=== PATIENT | male | born 1935 | race Caucasian/White ===

== ENCOUNTER 2016-06-29 23:51 | Inpatient (IN) ==
[2016-06-30] MEDS ORDERED: FUROSEMIDE 100 MG/10 ML VIAL IV STA (00:14)
[2016-06-30] MEDS ORDERED: methylPREDNISolone SOD SUC 125 MG/2 ML VIAL IV STA (00:14)
--- NOTE | 2016-06-30 00:17 | Emergency Department Note ---
Arrival - Arrival Chief Complaint: Shortness of Breath Stated Complaint: SOB ED Nursing Triage Note: pt states he started having sob last night and got in chair then tonight it has gotten increasinly worse Mode of Arrival: Wheelchair Time Seen by Provider: 06/30/16 00:14 - History of Present Illness HPI Narrative: Patient presents complaining of shortness of breath which began yesterday. The patient first noticed wheezing which has progressively worsened. He did not call anybody until later tonight when he finally could not tolerate his dyspnea. His family member with him says he does not know if he has had fever. He recently had cataract surgery but did not have general anesthetic for the procedure. He does take fluid pills. He does not have a history of asthma. The patient has a nonproductive cough. Dr. Maico Ramires is his family doctor. Allergies/Adverse Reactions: Allergies Allergy/AdvReac Type Severity Reaction Status Date / Time No Known Allergies Allergy Verified 06/28/16 06:43 Home Medications: Home Medications Medication Instructions Recorded Confirmed Type Carvedilol [Coreg] 6.25 mg PO BID 06/27/16 06/28/16 History Cyanocobalamin (Vitamin B-12) 2,500 mcg SL DAILY 06/27/16 06/28/16 History [Vitamin B-12] Finasteride [Proscar] 5 mg PO DAILY 06/27/16 06/28/16 History Folic Acid Tab 1 mg PO DAILY 06/27/16 06/28/16 History Quinapril HCl 20 mg PO DAILY 06/27/16 06/28/16 History Tamsulosin [Flomax] 0.4 mg PO BID 06/27/16 06/28/16 History amLODIPine [Norvasc] 10 mg PO DAILY 06/27/16 06/28/16 History metFORMIN [Glucophage] 500 mg PO DAILY W/BREAKFAST 06/27/16 06/28/16 History Review of System - Review of System 12 point system: reviewed and no additional remarkable complaints except as stated Medical,Surgical,& Family Hx - Medical History Cardio: History of: Hypertension Neurology: No history of: Seizures HEENT: History of: Eye Problem (wears glasses), Dental Problems (dentures full) Endocrine: History of: Diabetes Mellitus (NIDDM) Respiratory: No history of: Pneumonia (Hx Pneum Vac), Respiratory Problems (Flu Vac Current 2015/2016 Season) Genitourinary: History of: Prostate Problems (BPH), Genitourinary Cancer ( Bladder CA 2015) Gastrointestinal: No history of: Polyps Musculoskeletal: History of: Musculoskeletal Problems (Arthritis) Other: History of: Cancer (Bladder Tumor) No history of: Anesthesia Reactions - Surgical History HEENT Surgeries: Patient denies: Eye Surgery (06/28/16 Sched for Lt Cataract) Abdominal Surgeries: Surgical HX of: Colonoscopy Patient denies: Abdominal Surgery Reproductive Surgeries: Surgical HX of;: Cystoscopy (05/2016), Genitourinary Surgery (Cryoablation Bladder Tumor) - Social History Smoking Status: Never smoker Frequency of Alcohol Use: None Type of Drug Use: None Exam Physical Examination: General: Patient is well-developed and well-nourished with only mild to moderate distress despite mid 70 O2 sat on room air. With a nonrebreather facemask on his O2 sats come up into the mid 90s. HEENT: The extraocular muscles are intact. Oropharynx is moist. There is no erythema or exudate. The tympanic membranes are shiny bilaterally. The lips are slightly cyanotic. Neck: There is no adenopathy. Full range of motion is noted without pain. The trachea is midline. No JVD is present. Lungs: There is normal excursion of the chest with the lungs demonstrating prominent wheezes bilaterally. No subcostal retractions are present. There is no point tenderness present. Heart: The heart has a regular rate and rhythm with no gallops or murmurs. Abdomen: The abdomen is nontender and nondistended with no rebound, guarding, or masses. Bowel sounds are normal. Back: The back demonstrates a normal appearance with no evidence of trauma. Genitourinary: Not examined. Extremities: The extremities demonstrate no clubbing, cyanosis, or edema. The visualized range of motion is normal. They appear atraumatic. Neuro: Cranial nerves II through XII are checked and intact. There is no focal motor or sensory deficit seen in the extremities. Skin: Skin is warm and dry with no evidence of rash. Vital Signs: Vital Signs Temperature 98.5 F 06/30/16 00:05 Pulse Rate 97 H 06/30/16 01:04 Respiratory Rate 22 06/30/16 01:04 Blood Pressure 189/101 06/30/16 00:05 O2 Sat by Pulse Oximetry 96 06/30/16 01:04 Course - Consultations Consultation #1: Dr. Niru Smith will admit to Dr. Maico Ramires. Time: 01:20 Results - Labs CBC & BMP: 06/30/16 00:12 06/30/16 00:12 Lab Results: I have reviewed the patients labs Labs: Lab Results WBC 13.0 T/CUMM (4-12) H 06/30/16 00:12 RBC 4.95 MC/CUMM (3.8-5.5) 06/30/16 00:12 Hgb 15.2 GM/DL (14.0-18.0) 06/30/16 00:12 Hct 47.3 VOL% (42.0-52.0) 06/30/16 00:12 MCV 95.6 FL (87-102) 06/30/16 00:12 MCH 31 PG (27-34) 06/30/16 00:12 MCHC 32.1 GM/DL (32-36) 06/30/16 00:12 RDW 15.1 % (9.3-17.3) 06/30/16 00:12 Plt Count 205 T/CUMM (130-400) 06/30/16 00:12 MPV 10.2 FL (9.6-12.0) 06/30/16 00:12 Neut % (Auto) 74.3 % (38.7-73.9) H 06/30/16 00:12 Lymph % (Auto) 10.1 % (21.2-54.2) L 06/30/16 00:12 [place] % (Auto) 9.0 % (1.7-12.7) 06/30/16 00:12 Eos % (Auto) 5.8 % (0.00-10.9) 06/30/16 00:12 Baso % (Auto) 0.3 % (0.0-0.8) 06/30/16 00:12 Neut # (Auto) 9.7 10*3/uL (1.4-7.4) H 06/30/16 00:12 Lymph # (Auto) 1.3 10*3/uL (1.4-4.0) L 06/30/16 00:12 [place] # (Auto) 1.2 10*3/uL (0.11-0.8) H 06/30/16 00:12 Eos # (Auto) 0.8 10*3/uL (0.0-0.87) 06/30/16 00:12 Baso # (Auto) 0.0 10*3/uL (0.0-0.2) 06/30/16 00:12 Immature Gran % 0.5 % 06/30/16 00:12 Nucleated RBC % 0.0 /100WBC 06/30/16 00:12 Immature Gran # 0.06 # 06/30/16 00:12 Nucleated RBCs # 0.00 10*3/uL 06/30/16 00:12 INR 0.9 06/30/16 00:12 PT Patient/Control Mix 9.9 SECS 06/30/16 00:12 Sodium 142 MMOL/L (136-145) 06/30/16 00:12 Potassium 4.3 MMOL/L (3.5-5.1) 06/30/16 00:12 Chloride 107 MMOL/L (98-107) 06/30/16 00:12 Carbon Dioxide 29 MMOL/L (21-32) 06/30/16 00:12 Anion Gap 10.3 MMOL/L (5.0-15.0) 06/30/16 00:12 BUN 19 MG/DL (7-18) H 06/30/16 00:12 Creatinine 1.00 MG/DL (0.70-1.30) 06/30/16 00:12 GFR Calculation 99 ML/MIN 06/30/16 00:12 BUN/Creatinine Ratio 19.00 RATIO (6.00-20.00) 06/30/16 00:12 Glucose 172 MG/DL (74-106) H 06/30/16 00:12 Calculated Osmolality 288.1 MOS/KG (273-304) 06/30/16 00:12 Calcium 8.2 MG/DL (8.5-10.1) L 06/30/16 00:12 Magnesium 2.1 MG/DL (1.8-2.4) 06/30/16 00:12 Total Bilirubin 0.60 MG/DL (0.2-1.0) 06/30/16 00:12 AST 33 U/L (0-37) 06/30/16 00:12 ALT 41 U/L (16-61) 06/30/16 00:12 Alkaline Phosphatase 198 U/L (45-117) H 06/30/16 00:12 Troponin I < 0.015 NG/ML (0.00-0.045) 06/30/16 00:12 B-Natriuretic Peptide 121 PG/ML (2-100) H 06/30/16 00:12 Total Protein 6.5 G/DL (6.4-8.3) 06/30/16 00:12 Albumin 3.6 G/DL (3.4-5.0) 06/30/16 00:12 Globulin 2.9 G/DL (2.3-3.5) 06/30/16 00:12 Albumin/Globulin Ratio 1.2 RATIO (1.1-2.2) 06/30/16 00:12 ABG pH 7.242 (7.35-7.45) L 06/30/16 00:36 ABG pCO2 73.9 MM HG (35-48) H* 06/30/16 00:36 ABG pO2 117.0 MM HG (80-95) H 06/30/16 00:36 ABG HCO3 25.3 MMOL/L (20-26) 06/30/16 00:36 ABG Total CO2 27.7 MMOL/L (23-27) H 06/30/16 00:36 ABG O2 Saturation 98.1 % (95-100) 06/30/16 00:36 ABG Base Excess 1.0 MMOL/L (-2.5-2.5) 06/30/16 00:36 FiO2 100.00 PERCENT (0-100) 06/30/16 00:36 - Diagnostic Findings Procedure: Chest x-ray: image reviewed by me (Right middle lobe opacity), CT - chest: image reviewed by me (No PE. Motion artifact. Bilateral pleural effusions with the suggestion of mild CHF and right middle lobe consolidation) Critical Care Time Critical Care Time: Yes Total Critical Care Time: 37 Disposition Clinical Impression: Right middle lobe pneumonia, Respiratory failure Case discussed with: patient, patient's family Disposition: Still a Patient Condition: Stable Time of Disposition: 01:20
[2016-06-30] MEDS: ALBUTEROL 2.5 MG/3 ML NEB RESP TX SCH (00:23)
[2016-06-30 00:28] LABS: Basophils % 0.3 % (0.0-0.8); Eosinophils # 0.8 10*3/uL (0.0-0.87); Eosinophils % 5.8 % (0.00-10.9); Hematocrit 47.3 VOL% (42.0-52.0); Hemoglobin 15.2 GM/DL (14.0-18.0); Immature Granulocytes % 0.5 %; Immature Granulocytes Absolute 0.06 #; Lymphocytes # 1.3 10*3/uL (1.4-4.0); Lymphocytes % 10.1 % (21.2-54.2); Mean Corpuscular HGB Conc 32.1 GM/DL (32-36); Mean Corpuscular Hemoglobin 31 PG (27-34); Mean Corpuscular Volume 95.6 FL (87-102); Mean Platelet Volume 10.2 FL (9.6-12.0); Monocytes # 1.2 10*3/uL (0.11-0.8); Neutrophils # 9.7 10*3/uL (1.4-7.4); Neutrophils % 74.3 % (38.7-73.9); Platelet Count 205 T/CUMM (130-400); Red Blood Count 4.95 MC/CUMM (3.8-5.5); Red Cell Distribution Width 15.1 % (9.3-17.3)
[2016-06-30 00:35] LABS: INR 0.9; PT Patient Result 9.9 SECS
[2016-06-30 00:42] LABS: ABG HCO3 25.3 MMOL/L (20-26); ABG Oxygen Saturation 98.1 % (95-100); ABG PH 7.242 (7.35-7.45); ABG TCO2 27.7 MMOL/L (23-27); Allen Test Positive
[2016-06-30 00:43] LABS: ABG PCO2 73.9 MM HG (35-48)
[2016-06-30] MEDS ORDERED: methylPREDNISolone SOD SUC 125 MG/2 ML VIAL ONE (00:43)
[2016-06-30] MEDS ORDERED: FUROSEMIDE 20 MG/2 ML VIAL ONE (00:43)
[2016-06-30 00:53] LABS: Alanine Aminotransferase 41 U/L (16-61); Albumin 3.6 G/DL (3.4-5.0); Alkaline Phosphatase 198 U/L (45-117); Aspartate Amino Transferase 33 U/L (0-37); Blood Urea Nitrogen 19 MG/DL (7-18); Calcium 8.2 MG/DL (8.5-10.1); Glucose 172 MG/DL (74-106); Magnesium 2.1 MG/DL (1.8-2.4); Osmolality,Calculated 288.1 MOS/KG (273-304); Potassium 4.3 MMOL/L (3.5-5.1); Sodium 142 MMOL/L (136-145); Total Protein 6.5 G/DL (6.4-8.3); Troponin I Only < 0.015 NG/ML (0.00-0.045)
[2016-06-30] MEDS ORDERED: ONDANSETRON 4 MG/2 ML VIAL IV PRN (01:23)
[2016-06-30] MEDS ORDERED: ACETAMINOPHEN 325 MG TABLET PO PRN (01:23)
[2016-06-30] MEDS ORDERED: LEVOFLOXACIN INJ 750 MG in PREMIX 1 EACH IV SCH (01:30)
[2016-06-30 01:41] LABS: Platelet Estimate Normal
[2016-06-30 02:03] LABS: Apearance,Urine CLEAR (Clear); Bilirubin,Urine Negative (Negative); Blood, Urine Negative (Negative); Glucose,Urine (UA) Negative (Negative); Granular Casts,Urine 1 /LPF (0-1); Ketones,Urine Negative (Negative); Mucus,Urine Occasional /LPF (Occasional); Nitrite,Urine Negative (Negative); Protein,Urine Negative; Squamous Epithelial Cell,Urine Occasional /HPF (0-10); Urine Color Colorless (Yellow); Urine Specific Gravity 1.005 (1.001-1.035); Urine Urobilinogen < 2.0 EU/DL (0.2-1.0); WBC,Urine <1 /HPF (0-6)
[2016-06-30] MEDS ORDERED: ALBUTEROL 2.5 MG/3 ML NEB RESP TX SCH (03:00)
[2016-06-30] MEDS: LEVOFLOXACIN INJ 750 MG in PREMIX 1 EACH IV SCH (03:37)
--- NOTE | 2016-06-30 04:31 | Internal Med History&Physical ---
Assessment and Plan (1) Hypertension Status: Chronic Current Visit: Yes Qualifiers: Hypertension type: essential hypertension Qualified Code(s): I10 - Essential (primary) hypertension (2) Diabetes Status: Chronic Current Visit: Yes Qualifiers: Diabetes mellitus type: type 2 Diabetes mellitus complication status: without complication Diabetes mellitus label drier insulin use: without mcc use Qualified Code(s): E11.9 - Type 2 diabetes mellitus without complications (3) Respiratory failure Status: Acute Current Visit: Yes Qualifiers: Chronicity: acute Respiratory failure complication: hypercapnia Qualified Code(s): J96.02 - Acute respiratory failure with hypercapnia (4) Right middle lobe pneumonia Status: Acute Current Visit: Yes Qualifiers: Pneumonia type: due to unspecified organism Qualified Code(s): J18.1 - Lobar pneumonia, unspecified organism History of Present Illness Chief complaint: acute shortness of breath History of present illness: Mr. Johnson is a 80 year old male with history of osteoarthritis, DM, history of bladder cancer followed by Dr. Jorge Luis Ramires, HTN, who presented to ER with worsening shortness of breath since yesterday. He denies recent illness. Breathing treatments and Levaquin were given in ER. He reports feeling much better than when he was in ER. Home Medications Medication Instructions Recorded Confirmed Type Carvedilol [Coreg] 6.25 mg PO BID 06/27/16 06/30/16 History Cyanocobalamin (Vitamin B-12) 2,500 mcg SL DAILY 06/27/16 06/30/16 History [Vitamin B-12] Finasteride [Proscar] 5 mg PO DAILY 06/27/16 06/30/16 History Folic Acid Tab 1 mg PO DAILY 06/27/16 06/30/16 History Quinapril HCl 20 mg PO DAILY 06/27/16 06/30/16 History Tamsulosin [Flomax] 0.4 mg PO BID 06/27/16 06/30/16 History amLODIPine [Norvasc] 10 mg PO DAILY 06/27/16 06/30/16 History metFORMIN [Glucophage] 500 mg PO DAILY W/BREAKFAST 06/27/16 06/30/16 History Ascorbic Acid Tab [Vitamin C Tab] 500 mg PO DAILY 06/30/16 06/30/16 History Allergies Allergy/AdvReac Type Severity Reaction Status Date / Time No Known Allergies Allergy Verified 06/28/16 06:43 Medical,Surgical,& Family Hx - Medical History Cardio: History of: Hypertension Neurology: No history of: Seizures HEENT: History of: Eye Problem (wears glasses), Dental Problems (dentures full upper and partial lower) Endocrine: History of: Diabetes Mellitus (NIDDM) Respiratory: No history of: Pneumonia (Hx Pneum Vac), Respiratory Problems (Flu Vac Current Season) Genitourinary: History of: Bladder Problem (Sees Dr. Damon Ramires), Prostate Problems (BPH), Genitourinary Cancer (Bladder CA 2014) Gastrointestinal: No history of: Polyps Musculoskeletal: History of: Musculoskeletal Problems (Arthritis) Hematology: No history of: Sickle Cell Disease Other: History of: Cancer (Bladder Tumor) No history of: Anesthesia Reactions - Surgical History Thoracic Surgeries: Patient denies;: Organ Transplant, Lobectomy HEENT Surgeries: Patient denies: Eye Surgery (06/28/16 Sched for Lt Cataract) Abdominal Surgeries: Surgical HX of: Colonoscopy Patient denies: Abdominal Surgery Reproductive Surgeries: Surgical HX of;: Cystoscopy (05/2016), Genitourinary Surgery (Cryoablation Bladder Tumor) - Family History Family History: Reports;: Family Heart Disease (Father), Additional Family History (Brother has dementia) - Social History Smoking Status: Never smoker Frequency of Alcohol Use: None Type of Drug Use: None Marital Status: Lives With:: Spouse Functional capacity: independent ambulation - Constitutional Constitutional: Present: weakness - Respiratory Respiratory: Present: dyspnea - Musculoskeletal Musculoskeletal: Present: arthralgias Exam - Constitutional Vitals: Period Temp Pulse Resp BP Sys/Mckeon Pulse Ox Last 24 Hr 99.1 F 90-103 22-26 165-207/70-100 93-97 General appearance: no acute distress - Head Head exam: Present: normocephalic - Eye Eye exam: Present: EOMI - Respiratory Respiratory exam: Present: clear to auscultation bilaterally - Cardiovascular Cardiovascular exam: Present: regular rate and rhythm - GI/Abdominal GI/Abdominal exam: Present: normal bowel sounds, soft - Extremities Exam Extremities exam: Absent: edema - Neurological Exam Neurological exam: Present: alert, oriented X3, CN II-XII intact - Psychiatric Psychiatric exam: Present: normal mood - Skin Skin exam: Present: warm, dry Results - Labs CBC & BMP: 06/30/16 00:12 05/04/17 00:12 - EKG EKG shows: sinus rhythm - Diagnostic Findings Procedure: Chest x-ray: image reviewed by me, CT - chest: image reviewed by me
[2016-06-30] MEDS ORDERED: ALBUTEROL 2.5 MG/3 ML NEB RESP TX PRN (04:44)
[2016-06-30] MEDS ORDERED: GLUCAGON 1 MG VIAL IM PRN (04:44)
[2016-06-30] MEDS ORDERED: DEXTROSE 50% 25 GM/50 ML VIAL IV PRN (04:44)
[2016-06-30] MEDS ORDERED: SODIUM CHLORIDE 0.45% 1,000 ML IV SCH (05:00)
--- NOTE | 2016-06-30 06:33 | Pulmonology Consult Note ---
Assessment and Plan (1) Community acquired pneumonia Status: Acute Assessment and plan: Appears to be a right middle and lower lobe. Only had a temperature of 99.1 but did have elevated white count, acute onset with thick sputum. Patient currently on Levaquin. Getting low-dose steroids. He does have small pleural effusions which we need to watch. Current Visit: Yes (2) Obesity Status: Acute Assessment and plan: Would consider obesity hypoventilation with his elevated PCO2. However that was measured when he was on a nonrebreathing mask. We will recheck ABGs on nasal oxygen. Current Visit: Yes (3) History of bladder cancer Status: Acute Assessment and plan: He has had 2 different resections of bladder cancer transurethrally by Dr. Damon Ramires. Current Visit: Yes (4) Respiratory failure Status: Acute Assessment and plan: Elevated PCO2. Patient is alert. Oxygen saturation 95-97% on 5 L nasal oxygen. Will recheck ABGs. Watch fluids closely Current Visit: Yes Qualifiers: Chronicity: acute Respiratory failure complication: hypercapnia Qualified Code(s): J96.02 - Acute respiratory failure with hypercapnia (5) Diabetes Status: Chronic Current Visit: Yes Qualifiers: Diabetes mellitus type: type 2 Diabetes mellitus complication status: without complication Diabetes mellitus superintendent container terminal insulin use: without superintendent container terminal use Qualified Code(s): E11.9 - Type 2 diabetes mellitus without complications (6) Hypertension Status: Chronic Assessment and plan: Systolic blood pressure 160. Current Visit: Yes Qualifiers: Hypertension type: essential hypertension Qualified Code(s): I10 - Essential (primary) hypertension History of Present Illness Chief complaint: Cough shortness of breath History of present illness: Mr. Johnson is a 80 year old male woke up during the night acutely short of breath. he sat up on the side of the bed, did not get any better, and was brought to the emergency room. He has a right lower lobe infiltrate and small pleural effusions on his chest x-ray. BNP is only slightly elevated at 120. No history of heart or lung disease. He does have history of bladder cancer and has had cystoscopic removal of 2 different bladder cancers. He had cataract surgery earlier this week. That was 2 days ago. Did not have any acute respiratory problems following that. He is obese weighing 120 kg. There is no known history of obesity hypoventilation syndrome no known history of sleep apnea. Denies snoring loudly. He gets sleepy sometimes but is never fallen asleep inappropriately during the daytime. He does not think he has had fever or chills. He has coughed up some thick phlegm but no hemoptysis. No pleuritic pain. Home Medications Medication Instructions Recorded Confirmed Type Carvedilol [Coreg] 6.25 mg PO BID 06/27/16 06/30/16 History Cyanocobalamin (Vitamin B-12) 2,500 mcg SL DAILY 06/27/16 06/30/16 History [Vitamin B-12] Finasteride [Proscar] 5 mg PO DAILY 06/27/16 06/30/16 History Folic Acid Tab 1 mg PO DAILY 06/27/16 06/30/16 History Quinapril HCl 20 mg PO DAILY 06/27/16 06/30/16 History Tamsulosin [Flomax] 0.4 mg PO BID 06/27/16 06/30/16 History amLODIPine [Norvasc] 10 mg PO DAILY 06/27/16 06/30/16 History metFORMIN [Glucophage] 500 mg PO DAILY W/BREAKFAST 06/27/16 06/30/16 History Ascorbic Acid Tab [Vitamin C Tab] 500 mg PO DAILY 06/30/16 06/30/16 History Allergies Allergy/AdvReac Type Severity Reaction Status Date / Time No Known Allergies Allergy Verified 06/28/16 06:43 12 point system: reviewed and no additional remarkable complaints except as stated - EENT Eyes: Present: blurry vision (Had cataract surgery 2 days ago on his left eye) - Cardiovascular Cardiovascular: Present: dyspnea, dyspnea on exertion - Respiratory Respiratory: Present: cough, dyspnea, dyspnea on exertion - Genitourinary Genitourinary: Present: other (History of bladder cancer with 2 transurethral resections.) - Musculoskeletal Musculoskeletal: Present: arthralgias Exam (P[place]) H&P - Constitutional Vitals: Period Temp Pulse Resp BP Sys/Mckeon Pulse Ox Last 24 Hr 98.9 F-99.1 F 87-103 17-26 163-207/70-100 93-97 Exam: Patient is alert and oriented. Vital signs normal. Pupils react to light. Left conjunctiva slightly red. Throat is clear. Neck supple no bruits. Chest reveals some rales primarily at the right base. I do not hear any wheezes. Heart normal rate and rhythm no murmurs. Abdomen soft nontender no masses. Extremities no clubbing cyanosis or edema. Calves nontender. Medical,Surgical,& Family Hx - Medical History Cardio: History of: Hypertension Neurology: No history of: Seizures HEENT: History of: Eye Problem (wears glasses), Dental Problems (dentures full upper and partial lower) Endocrine: History of: Diabetes Mellitus (NIDDM) Respiratory: No history of: Pneumonia (Hx Pneum Vac), Respiratory Problems (Flu Vac Current Season) Genitourinary: History of: Bladder Problem (Sees Dr. Damon Ramires), Prostate Problems (BPH), Genitourinary Cancer (Bladder CA 2014) Gastrointestinal: No history of: Polyps Musculoskeletal: History of: Musculoskeletal Problems (Arthritis) Hematology: No history of: Sickle Cell Disease Other: History of: Cancer (Bladder Tumor) No history of: Anesthesia Reactions - Surgical History Thoracic Surgeries: Patient denies;: Organ Transplant, Lobectomy HEENT Surgeries: Patient denies: Eye Surgery (06/28/16 Sched for Lt Cataract) Abdominal Surgeries: Surgical HX of: Colonoscopy Patient denies: Abdominal Surgery Reproductive Surgeries: Surgical HX of;: Cystoscopy (05/2016), Genitourinary Surgery (Cryoablation Bladder Tumor) - Family History Family History: Reports;: Family Heart Disease (Father), Additional Family History (Brother has dementia) - Social History Smoking Status: Never smoker Frequency of Alcohol Use: None Type of Drug Use: None Results - Labs CBC & BMP: 06/30/16 00:12 06/30/16 00:12 Lab Results: I have reviewed the past 24 hour labs - Diagnostic Findings Procedure: Chest x-ray: image reviewed by me (Appears to have infiltrate over the right lower chest. Consistent with pneumonia.), CT - chest: image reviewed by me (Patchy infiltrates bilaterally more at the right base. Small pleural effusions.)
[2016-06-30 06:38] LABS: Risk Ratio 2.06
[2016-06-30] MEDS: methylPREDNISolone SOD SUC 40 MG/1 ML VIAL IV SCH ×2 (06:48→18:06)
--- NOTE | 2016-06-30 07:04 | CT Report ---
CT of the chest with intravenous contrast, PE protocol. Indication: Shortness of breath status post procedure. 80 cc Omni 350. Axial images were obtained with sagittal and coronal reconstructions. There is a preliminary report from the [facility]. Axial images were obtained with sagittal and coronal reconstructions 2-D and 3-D reconstructions. No previous study. The thyroid gland is normal in size. Within the right lobe of the thyroid, there is a 1.5 cm mixed density mass. There is no supraclavicular or axillary lymphadenopathy. The heart is upper limits of normal in size. There is a prominent epicardial fat pad, which may accentuate the heart size on chest x-ray. There are moderately large bilateral free pleural effusions. There is atelectasis present in each lung base. There is a small amount of fluid in the left anterior pericardial recess. Coronary artery calcification is visible. The aorta is poorly opacified, due to the phase of exam to emphasize the pulmonary arteries. There is mild scattered plaque. It is not dilated. There is motion artifact present. There are no definite findings of pulmonary thromboembolism. The tertiary branches are poorly evaluated. Interstitial prominence is seen within the lung [place]. Pulmonary edema is suspected. Moderate atelectasis in both lung bases. Bronchial wall thickening. There is a small indistinct nodular density measuring 7.4 mm, near the interlobar fissure in the right upper lobe. Scattered calcific granulomas are noted within the lung [place], and there are calcified lymph nodes in the mediastinum. Degenerative changes are noted within the spinal column. Impression: 1. Somewhat limited study due to motion artifact. No definite finding of pulmonary thromboembolism. 2. Cardiomegaly. Coronary artery disease. 3. Small amount of fluid seen in the anterior mediastinum, adjacent to the aorta, probably in a pericardial recess. Note that the aorta is not well evaluated on this study performed in the pulmonary artery phase. 4. Pulmonary edema. 5. Evidence of previous granulomatous disease. 6. Moderate bilateral pleural effusions. 7. Bilateral basilar atelectasis. 8. Small noncalcified nonspecific pulmonary nodule in the right upper lobe, measuring 7 mm. Follow-up CT in 6 months recommended, with subsequent surveillance imaging as necessary. The CT exam was performed using one or more of the following dose reduction techniques: Automated exposure control, adjustment of the mA and/or kV according to patient size, or use of iterative reconstruction technique. PROCEDURE INTERPRETED AT [facility] DEPARTMENT OF RADIOLOGY Final Report Signed by: Dr. Isela Joe
[2016-06-30] MEDS: ALBUTEROL/IPRATROPIUM 3 ML NEB RESP TX SCH ×3 (07:10→19:40)
[2016-06-30] MEDS: BUDESONIDE 0.25 MG/2 ML NEB RESP TX SCH ×2 (07:10→19:41)
[2016-06-30 07:28] LABS: ABG Base Excess 4.8 MMOL/L (-2.5-2.5); ABG HCO3 27.4 MMOL/L (20-26); ABG Oxygen Saturation 51.3 % (95-100); ABG PCO2 60.4 MM HG (35-48); ABG PH 7.346 (7.35-7.45); ABG TCO2 28.4 MMOL/L (23-27)
[2016-06-30 07:32] LABS: ABG PO2 26.8 MM HG (80-95)
--- NOTE | 2016-06-30 07:35 | XRay Report ---
Referring Physician: Ez Turcios Exam: XR chest 1V portable Date: June 30, 2016 at 12:29 PM Reason: Shortness of breath Comparison: CT chest PE study June 30, 2016 Findings: The cardiac silhouette is upper normal in size. The interstitial markings are diffusely prominent, and there are scattered opacities within both lungs, mainly within the lower lung zones. This is most consistent with pulmonary edema and atelectasis, but superimposed pneumonia is not excluded. No pneumothorax is identified, but there is mild bilateral pleural fluid. No acute osseous process is seen. Impression: 1. The interstitial markings are diffusely prominent, and there are scattered opacities within both lungs, mainly within the lower lung zones. This is most consistent with pulmonary edema and atelectasis, but superimposed pneumonia is not excluded. 2. Mild bilateral pleural fluid. PROCEDURE INTERPRETED AT [facility] DEPARTMENT OF RADIOLOGY Final Report Signed by: Dr. Debbie Laurent
[2016-06-30] MEDS ORDERED: methylPREDNISolone SOD SUC 40 MG/1 ML VIAL IV SCH (08:00)
[2016-06-30] MEDS ORDERED: FUROSEMIDE 40 MG/4 ML VIAL IV SCH (08:00)
[2016-06-30 08:09] LABS: ABG Base Excess 4.4 MMOL/L (-2.5-2.5); ABG HCO3 30.5 MMOL/L (20-26); ABG Oxygen Saturation 97.2 % (95-100); ABG PCO2 50.1 MM HG (35-48); ABG PH 7.402 (7.35-7.45)
[2016-06-30] MEDS: DOCUSATE SODIUM 100 MG CAPSULE PO SCH ×2 (08:36→20:55)
[2016-06-30] MEDS: PANTOPRAZOLE 40 MG TABLET PO SCH (08:36)
[2016-06-30] MEDS: amLODIPine 10 MG TABLET PO SCH (08:36)
[2016-06-30] MEDS: CALCIUM (CITRATE) 200 MG TABLET PO SCH ×2 (08:36→20:54)
[2016-06-30] MEDS: metFORMIN 500 MG TABLET PO SCH (08:36)
[2016-06-30] MEDS: QUINAPRIL 20 MG TABLET PO SCH (08:37)
[2016-06-30] MEDS: CARVEDILOL 6.25 MG TABLET PO SCH ×2 (08:37→20:55)
[2016-06-30] MEDS: INSULIN REGULAR 100 UNIT/ML SUBCUT SCH ×4 (08:37→20:57)
[2016-06-30] MEDS: FUROSEMIDE 40 MG/4 ML VIAL IV SCH (08:38)
--- NOTE | 2016-06-30 09:57 | Internal Med Progress Note ---
Internal Medicine - PN: Subj Interval history: Patient seen for Dr. Ramires. See history and physical as detailed by H&P Exam (Progress Note) - Constitutional Vitals: Period Temp Pulse Resp BP Sys/Mckeon Pulse Ox Last 24 Hr 97.9 F-99.1 F 87-103 16-26 156-207/70-100 93-97 Results - Labs CBC & BMP: 06/30/16 00:12 06/30/16 00:12
--- NOTE | 2016-06-30 12:51 | ECHO Report ---
Fernie Johnson Exam Date: 06/30/2016 09:12 Referring Physician: Technologist: Page Back [email or web address] Age: 80 Ht (in): 74 Wt (lb): 265 Gender: M Exam Location: [facility] Echo Indications: pneumonia, Hx. bladder CA, Resp. failure, diabetes BP: 159 / 88 HR: 90 Rhythm: Sinus Technical Quality: Very technically difficult study IMPRESSIONS This is a severely limited study. Left ventricular ejection fraction is grossly normal and is estimated at around 60%. Trace mitral valve regurgitation. Trace tricuspid valve regurgitation. MEASUREMENTS (Male / Female) Normal Values 2D ECHO LV Diastolic Diameter PLAX 4.9 cm 4.2 - 5.9 / 3.9 - 5.3 cm LV Systolic Diameter PLAX 2.9 cm LV Fractional Shortening PLAX 41.4 % IVS Diastolic Thickness 1.9 cm 0.6 - 1.0 / 0.6 - 0.9 cm LVPW Diastolic Thickness 2.1 cm 0.6 - 1.0 / 0.6 - 0.9 cm RV Internal Dim ED PLAX 2.8 cm DOPPLER TR Peak Velocity 228.0 cm/s TR Peak Gradient 20.8 mmHg FINDINGS Left Ventricle Grossly normal left ventricular size and function. Left ventricular ejection fraction is estimated at 60 %. Right Ventricle Grossly normal right ventricle e. Right Atrium Grossly normal left ventricle Left Atrium Grossly normal left atrium Mitral Valve Grossly normal mitral valve structure. Trace mitral valve regurgitation. Aortic Valve Mild aortic valve sclerosis. Tricuspid Valve Morphologically normal tricuspid valve. Trace tricuspid valve regurgitation. Tricuspid regurgitation velocities suggest a PAP of 20.8 mmHg + RAP. Pulmonic Valve Trace pulmonary valve regurgitation. Pericardium No pericardial effusion. Aorta Normal size aortic root and proximal ascending aorta. Mark Marie (Electronically Signed) Final Date: 30 Jun 2016 12:50
[2016-07-01] MEDS: ALBUTEROL/IPRATROPIUM 3 ML NEB RESP TX SCH ×4 (01:38→19:47)
[2016-07-01] MEDS: LEVOFLOXACIN INJ 750 MG in PREMIX 1 EACH IV SCH (02:34)
[2016-07-01 03:12] LABS: ABG Base Excess 3.8 MMOL/L (-2.5-2.5); ABG HCO3 30.2 MMOL/L (20-26); ABG Oxygen Saturation 97.2 % (95-100); ABG PCO2 52.2 MM HG (35-48); ABG PO2 90.4 MM HG (80-95); ABG TCO2 31.8 MMOL/L (23-27); Allen Test Positive
[2016-07-01 06:08] LABS: Basophils % 0.1 % (0.0-0.8); Hematocrit 46.1 VOL% (42.0-52.0); Hemoglobin 14.9 GM/DL (14.0-18.0); Immature Granulocytes % 0.9 %; Immature Granulocytes Absolute 0.15 #; Lymphocytes # 0.7 10*3/uL (1.4-4.0); Mean Corpuscular HGB Conc 32.3 GM/DL (32-36); Mean Corpuscular Hemoglobin 31 PG (27-34); Mean Corpuscular Volume 95.2 FL (87-102); Mean Platelet Volume 9.9 FL (9.6-12.0); Monocytes % 5.8 % (1.7-12.7); Neutrophils # 15.6 10*3/uL (1.4-7.4); Neutrophils % 89.2 % (38.7-73.9); Platelet Count 256 T/CUMM (130-400); Red Blood Count 4.84 MC/CUMM (3.8-5.5); Red Cell Distribution Width 14.9 % (9.3-17.3); White Blood Count 17.5 T/CUMM (4-12)
[2016-07-01] MEDS: methylPREDNISolone SOD SUC 40 MG/1 ML VIAL IV SCH ×2 (06:21→07:15)
[2016-07-01 06:36] LABS: Calcium 8.2 MG/DL (8.5-10.1); Osmolality,Calculated 291.1 MOS/KG (273-304); Potassium 4.2 MMOL/L (3.5-5.1)
--- NOTE | 2016-07-01 06:43 | Pulmonology Progress Note ---
Pulmonary - PN: Subj Interval history: This 80-year-old white male came in what appears to be a right lower lobe pneumonia. He is feeling better this morning. He has an elevated PCO2. Echocardiogram showed normal LV function. He is continuing on Levaquin and Solu -Medrol as well as bronchodilators. Afebrile and should be able to be moved to the floor today. Exam (Progress Note) - Constitutional Vitals: Period Temp Pulse Resp BP Sys/Mckeon Pulse Ox Last 24 Hr 97.4 F-98.8 F 77-101 15-26 133-175/62-95 94-99 Exam: He is alert and oriented. Vital signs normal except for irregular pulse with atrial fibrillation. HEENT: Pupils react to light. Throat is clear. Neck is supple no bruits. Chest reveals some minimal rhonchi. He is not tight I do not hear while no wheezing. Heart irregular without murmur. Abdomen is soft nontender no masses. Bowel sounds present. Extremities no clubbing cyanosis or edema. Results - Labs CBC & BMP: 07/01/16 05:49 07/01/16 05:49 Lab Results: I have reviewed the past 24 hour labs - Diagnostic Findings Procedure: Chest x-ray: image reviewed by me (The right lower and middle lobe infiltrate is less apparent today.) Assessment and Plan (1) Community acquired pneumonia Status: Acute Assessment and plan: Appears to be a right middle and lower lobe. Only had a temperature of 99.1 but did have elevated white count, acute onset with thick sputum. Patient currently on Levaquin. Getting low-dose steroids. He does have small pleural effusions which we need to watch. 07/01/2016 I do feel he has community acquired pneumonia. Continuing the Levaquin. Cultures are pending Current Visit: Yes (2) Obesity Status: Acute Assessment and plan: Would consider obesity hypoventilation with his elevated PCO2. However that was measured when he was on a nonrebreathing mask. We will recheck ABGs on nasal oxygen. 07/01/2016 will need a sleep study at some point in time. His PCO2 remains elevated at 50. Current Visit: Yes (3) History of bladder cancer Status: Acute Assessment and plan: He has had 2 different resections of bladder cancer transurethrally by Dr. Damon Ramires. Current Visit: Yes (4) Respiratory failure Status: Acute Assessment and plan: Elevated PCO2. Patient is alert. Oxygen saturation 95-97% on 5 L nasal oxygen. Will recheck ABGs. Watch fluids closely 07/01/2016 elevated PCO2 is really unexplained at this point. May just be secondary to acute pneumonia. Echo did not show evidence of pulmonary hypertension. He has some left ventricular hypertrophy. Normal LV ejection fraction. He is a non-smoker never has been a smoker. No history of underlying lung disease. When he is over the pneumonia remains a full workup including PFTs. Current Visit: Yes Qualifiers: Chronicity: acute Respiratory failure complication: hypercapnia Qualified Code(s): J96.02 - Acute respiratory failure with hypercapnia (5) Diabetes Status: Chronic Assessment and plan: Blood sugars running around 300. He is on oral hypoglycemic agent. Also on a sliding scale. Getting Solu-Medrol for the pneumonia. I will reduce that. Current Visit: Yes Qualifiers: Diabetes mellitus type: type 2 Diabetes mellitus complication status: without complication Diabetes mellitus intermediate frame tender insulin use: without intermediate frame tender use Qualified Code(s): E11.9 - Type 2 diabetes mellitus without complications (6) Hypertension Status: Chronic Assessment and plan: Systolic blood pressure 160. 07/01/2016 blood pressure fairly well controlled Current Visit: Yes Qualifiers: Hypertension type: essential hypertension Qualified Code(s): I10 - Essential (primary) hypertension
[2016-07-01] MEDS: BUDESONIDE 0.25 MG/2 ML NEB RESP TX SCH ×2 (07:25→19:47)
--- NOTE | 2016-07-01 08:21 | Internal Med Progress Note ---
Assessment and Plan (1) Community acquired pneumonia Status: Acute Assessment and plan: 80-year-old male admitted to acute care * Right lower lobe pneumonia with CO2 retention. Patient is better today. He will be continued on steroids nebulizers and IV antibiotics * Hypertension. Blood pressure is stable * Diabetes. Continue metformin * Will move patient to floor Current Visit: Yes (2) Obesity Status: Acute Current Visit: Yes (3) Respiratory failure Status: Acute Current Visit: Yes Qualifiers: Chronicity: acute Respiratory failure complication: hypercapnia Qualified Code(s): J96.02 - Acute respiratory failure with hypercapnia (4) Diabetes Status: Chronic Current Visit: Yes Qualifiers: Diabetes mellitus type: type 2 Diabetes mellitus complication status: without complication Diabetes mellitus termite treater helper insulin use: without group home use Qualified Code(s): E11.9 - Type 2 diabetes mellitus without complications (5) Hypertension Status: Chronic Current Visit: Yes Qualifiers: Hypertension type: essential hypertension Qualified Code(s): I10 - Essential (primary) hypertension Internal Medicine - PN: Subj Interval history: Patient is feeling much better this morning. His breathing has improved. She denies any chest pain. He does have shortness of breath Exam (Progress Note) - Constitutional Vitals: Period Temp Pulse Resp BP Sys/Mckeon Pulse Ox Last 24 Hr 97.4 F-98.8 F 77-101 15-26 133-175/62-95 94-100 Exam: Examination: GENERAL: NAD. HEENT: PERRLA. EOMI. NECK: Neck is supple. CVS: Regular rate and rhythm. S1 and S2 are normal. RESPIRATORY: Lungs are clear. Decreased breath sounds at bases with few rales at right base ABDOMEN: Soft and nontender. Obese EXT: No edema. Peripheral pulses are present. AUDIT SPECIALIST: Nonfocal SKIN: Warm and dry. MSK: No obvious deformity. Results - Labs CBC & BMP: 07/01/16 05:49 07/01/16 05:49 Lab Results: I have reviewed the past 24 hour labs
[2016-07-01] MEDS ORDERED: GLUCAGON 1 MG VIAL IM PRN (08:27)
[2016-07-01] MEDS ORDERED: DEXTROSE 50% 25 GM/50 ML VIAL IV PRN (08:27)
--- NOTE | 2016-07-01 08:53 | XRay Report ---
XR chest 1V portable Indication: Shortness of breath Comparison: 30 Jun 2016 Findings: The heart and mediastinum are stable in size and configuration. The pulmonary vascularity is decreased with decrease in interstitial lung density. No other lung infiltrates, effusions, pneumothorax or other abnormality is demonstrated. Impression: Findings suggest improving cardiac decompensation. PROCEDURE INTERPRETED AT [facility], [place] DEPARTMENT OF RADIOLOGY Final Report Signed by: Dr. Israel Santacruz
[2016-07-01] MEDS: TAMSULOSIN 0.4 MG CAPSULE PO SCH ×2 (08:54→21:24)
[2016-07-01] MEDS: ASCORBIC ACID 500 MG TABLET PO SCH (08:54)
[2016-07-01] MEDS: CALCIUM (CITRATE) 200 MG TABLET PO SCH ×2 (08:55→21:24)
[2016-07-01] MEDS: PANTOPRAZOLE 40 MG TABLET PO SCH (08:55)
[2016-07-01] MEDS: metFORMIN 500 MG TABLET PO SCH (08:55)
[2016-07-01] MEDS: amLODIPine 10 MG TABLET PO SCH (08:56)
[2016-07-01] MEDS: QUINAPRIL 20 MG TABLET PO SCH (08:56)
[2016-07-01] MEDS: FUROSEMIDE 40 MG/4 ML VIAL IV SCH (08:58)
[2016-07-01] MEDS: INSULIN REGULAR 100 UNIT/ML SUBCUT SCH ×4 (08:59→21:24)
[2016-07-01] MEDS: CARVEDILOL 6.25 MG TABLET PO SCH ×2 (09:00→21:24)
[2016-07-01] MEDS: DOCUSATE SODIUM 100 MG CAPSULE PO SCH ×2 (09:00→21:26)
[2016-07-01] MEDS: FOLIC ACID 1 MG TABLET PO SCH (09:06)
[2016-07-01] MEDS: FINASTERIDE 5 MG TABLET PO SCH (09:06)
[2016-07-01] MEDS: CYANOCOBALAMIN 500 MCG TABLET PO SCH (10:54)
[2016-07-02] MEDS: ALBUTEROL/IPRATROPIUM 3 ML NEB RESP TX SCH ×4 (01:04→21:00)
[2016-07-02] MEDS: LEVOFLOXACIN INJ 750 MG in PREMIX 1 EACH IV SCH (03:48)
[2016-07-02 04:47] LABS: ABG Base Excess 4.3 MMOL/L (-2.5-2.5); ABG HCO3 28.1 MMOL/L (20-26); ABG Oxygen Saturation 93.8 % (95-100); ABG PO2 65.9 MM HG (80-95); ABG TCO2 25.8 MMOL/L (23-27); Pt O2 Delivery Device Room Air
[2016-07-02 07:27] LABS: Basophils % 0.1 % (0.0-0.8); Eosinophils % 0.1 % (0.00-10.9); Hematocrit 47.7 VOL% (42.0-52.0); Hemoglobin 15.9 GM/DL (14.0-18.0); Immature Granulocytes % 0.7 %; Immature Granulocytes Absolute 0.12 #; Lymphocytes # 1.4 10*3/uL (1.4-4.0); Lymphocytes % 7.9 % (21.2-54.2); Mean Corpuscular HGB Conc 33.3 GM/DL (32-36); Mean Corpuscular Hemoglobin 31 PG (27-34); Mean Corpuscular Volume 92.3 FL (87-102); Monocytes # 1.4 10*3/uL (0.11-0.8); Monocytes % 8.1 % (1.7-12.7); Neutrophils # 14.8 10*3/uL (1.4-7.4); Neutrophils % 83.1 % (38.7-73.9); Platelet Count 265 T/CUMM (130-400); Red Blood Count 5.17 MC/CUMM (3.8-5.5); Red Cell Distribution Width 15.2 % (9.3-17.3); White Blood Count 17.8 T/CUMM (4-12)
[2016-07-02] MEDS: INSULIN REGULAR 100 UNIT/ML SUBCUT SCH ×4 (07:30→23:09)
[2016-07-02] MEDS: BUDESONIDE 0.25 MG/2 ML NEB RESP TX SCH ×2 (07:39→21:00)
[2016-07-02 07:54] LABS: Calcium 8.5 MG/DL (8.5-10.1); Potassium 4.3 MMOL/L (3.5-5.1)
[2016-07-02] MEDS: methylPREDNISolone SOD SUC 40 MG/1 ML VIAL IV SCH (07:55)
[2016-07-02] MEDS: FUROSEMIDE 40 MG/4 ML VIAL IV SCH (08:04)
[2016-07-02] MEDS: CYANOCOBALAMIN 500 MCG TABLET PO SCH (08:13)
[2016-07-02] MEDS: ASCORBIC ACID 500 MG TABLET PO SCH (08:14)
[2016-07-02] MEDS: CALCIUM (CITRATE) 200 MG TABLET PO SCH ×2 (08:14→23:08)
[2016-07-02] MEDS: QUINAPRIL 20 MG TABLET PO SCH (08:14)
[2016-07-02] MEDS: DOCUSATE SODIUM 100 MG CAPSULE PO SCH ×3 (08:14→23:09)
[2016-07-02] MEDS: PANTOPRAZOLE 40 MG TABLET PO SCH (08:14)
[2016-07-02] MEDS: FINASTERIDE 5 MG TABLET PO SCH (08:15)
[2016-07-02] MEDS: CARVEDILOL 6.25 MG TABLET PO SCH ×2 (08:15→23:08)
[2016-07-02] MEDS: TAMSULOSIN 0.4 MG CAPSULE PO SCH ×2 (08:15→23:08)
[2016-07-02] MEDS: FOLIC ACID 1 MG TABLET PO SCH (08:15)
[2016-07-02] MEDS: amLODIPine 10 MG TABLET PO SCH (08:15)
[2016-07-02] MEDS: metFORMIN 500 MG TABLET PO SCH (08:15)
--- NOTE | 2016-07-02 08:48 | Pulmonology Progress Note ---
Pulmonary - PN: Subj Interval history: Patient is a 80-year-old white man that came in with shortness of breath and had a right lower lobe pneumonia. He has a history of hypertension and diabetes but has good left ventricular function. He has a history of bladder cancer. He says he is feeling much better today and his cough and congestion are much improved. He says he wants to go home soon. He feels like his breathing is doing much better. His chest x-ray has improved. Overall he is quite stable. Exam (Progress Note) - Constitutional Vitals: Period Temp Pulse Resp BP Sys/Mckeon Pulse Ox Last 24 Hr 97.5 F-98.7 F 72-87 16-20 124-148/59-88 92-96 General appearance: no acute distress (He looks comfortable sitting up in a chair.), over weight - Head Head exam: Present: normal inspection, normocephalic - Eye Eye exam: Present: EOMI. Absent: scleral icterus Pupils: Present: MAIA - ENT ENT exam: Present: normal exam - Neck Neck exam: Present: normal inspection. Absent: lymphadenopathy, thyromegaly - Respiratory Respiratory exam: Present: rales (He has some very slight crackles in the bases. ). Absent: accessory muscle use, wheezes - Cardiovascular Cardiovascular exam: Present: regular rate and rhythm. Absent: gallop, JVD, systolic murmur - GI/Abdominal GI/Abdominal exam: Present: normal bowel sounds, soft. Absent: organomegaly, tenderness - Extremities Exam Extremities exam: Absent: calf tenderness, edema - Neurological Exam Neurological exam: Present: alert, oriented X3, CN II-XII intact - Psychiatric Psychiatric exam: Present: normal affect, normal mood - Skin Skin exam: Present: warm, dry Results - Labs CBC & BMP: 07/02/16 07:10 07/02/16 07:10 - Diagnostic Findings Procedure: Chest x-ray: image reviewed by me, report reviewed by me (Chest x- ray yesterday showed improvement in the right lower lobe infiltrate.) Assessment and Plan (1) Respiratory failure Status: Acute Assessment and plan: Patient's breathing is much better and his oxygenation is okay. He has not having any respiratory distress now. Current Visit: Yes Qualifiers: Chronicity: acute Respiratory failure complication: hypercapnia Qualified Code(s): J96.02 - Acute respiratory failure with hypercapnia (2) Hypertension Status: Chronic Assessment and plan: His blood pressure and heart rate are under better control. Current Visit: Yes Qualifiers: Hypertension type: essential hypertension Qualified Code(s): I10 - Essential (primary) hypertension (3) Diabetes Status: Chronic Assessment and plan: His glucose is 121 this morning. Current Visit: Yes Qualifiers: Diabetes mellitus type: type 2 Diabetes mellitus complication status: without complication Diabetes mellitus mcfp insulin use: without intermodal dispatcher use Qualified Code(s): E11.9 - Type 2 diabetes mellitus without complications (4) Community acquired pneumonia Status: Acute Assessment and plan: Patient is feeling better and his breathing is better. His cultures have been negative so far. His chest x-ray is improving. We will continue with antibiotics Current Visit: Yes (5) History of bladder cancer Status: Acute Assessment and plan: He is followed by urology. Current Visit: Yes
--- NOTE | 2016-07-02 11:16 | Internal Med Progress Note ---
Assessment and Plan (1) Community acquired pneumonia Status: Acute Assessment and plan: 80-year-old male admitted to acute care * Right lower lobe pneumonia with CO2 retention. Will taper down steroids. Clinically much better * Hypertension. Blood pressure is stable * Diabetes. Continue metformin * Repeat chest x-ray in the morning. * Hopefully home in the morning Current Visit: Yes (2) Obesity Status: Acute Current Visit: Yes (3) Respiratory failure Status: Acute Current Visit: Yes Qualifiers: Chronicity: acute Respiratory failure complication: hypercapnia Qualified Code(s): J96.02 - Acute respiratory failure with hypercapnia (4) Diabetes Status: Chronic Current Visit: Yes Qualifiers: Diabetes mellitus type: type 2 Diabetes mellitus complication status: without complication Diabetes mellitus director long term care insulin use: without director long term care use Qualified Code(s): E11.9 - Type 2 diabetes mellitus without complications (5) Hypertension Status: Chronic Current Visit: Yes Qualifiers: Hypertension type: essential hypertension Qualified Code(s): I10 - Essential (primary) hypertension Internal Medicine - PN: Subj Interval history: Patient is feeling much better this morning. He wants to go home soon. He denies any chest pain or shortness of breath Exam (Progress Note) - Constitutional Vitals: Period Temp Pulse Resp BP Sys/Mckeon Pulse Ox Last 24 Hr 97.5 F-98.7 F 72-87 16-20 124-148/59-88 92-96 Exam: Examination: GENERAL: NAD. NECK: Neck is supple. CVS: Regular rate and rhythm. S1 and S2 are normal. RESPIRATORY: Lungs are clear. Still with decreased breath sounds at right base ABDOMEN: Soft and nontender. Obese EXT: No edema. Peripheral pulses are present. METAL LATHER: Nonfocal SKIN: Warm and dry. MSK: No obvious deformity. Results - Labs CBC & BMP: 07/02/16 07:10 07/02/16 07:10 Lab Results: I have reviewed the past 24 hour labs
[2016-07-03] MEDS: LEVOFLOXACIN INJ 750 MG in PREMIX 1 EACH IV SCH (03:54)
[2016-07-03 06:53] LABS: Basophils % 0.1 % (0.0-0.8); Eosinophils % 0.1 % (0.00-10.9); Hematocrit 45.1 VOL% (42.0-52.0); Hemoglobin 14.9 GM/DL (14.0-18.0); Immature Granulocytes % 0.7 %; Immature Granulocytes Absolute 0.08 #; Lymphocytes % 8.4 % (21.2-54.2); Mean Corpuscular Hemoglobin 30 PG (27-34); Monocytes # 1.2 10*3/uL (0.11-0.8); Monocytes % 9.5 % (1.7-12.7); Neutrophils % 81.2 % (38.7-73.9); Platelet Count 238 T/CUMM (130-400); Red Cell Distribution Width 14.9 % (9.3-17.3); White Blood Count 12.3 T/CUMM (4-12)
[2016-07-03] MEDS: BUDESONIDE 0.25 MG/2 ML NEB RESP TX SCH (07:25)
[2016-07-03] MEDS: ALBUTEROL/IPRATROPIUM 3 ML NEB RESP TX SCH ×2 (07:25)
[2016-07-03 07:31] LABS: Calcium 8.2 MG/DL (8.5-10.1); Potassium 4.1 MMOL/L (3.5-5.1)
--- NOTE | 2016-07-03 08:11 | Pulmonology Progress Note ---
Pulmonary - PN: Subj Interval history: Patient is a 80-year-old white man that came in with shortness of breath and had a right lower lobe pneumonia. He has a history of hypertension and diabetes but has good left ventricular function. He has a history of bladder cancer. He has been getting IV antibiotics and feels better. He feels like his breathing is doing well and he had a good night. His cough is better and he does not feel short of breath. Overall he is much improved. Exam (Progress Note) - Constitutional Vitals: Period Temp Pulse Resp BP Sys/Mckeon Pulse Ox Last 24 Hr 97.7 F-98.2 F 68-77 16-20 120-131/64-66 94-98 Exam: General appearance: no acute distress (He looks comfortable sitting up in a chair.), over weight - Head Head exam: Present: normal inspection, normocephalic - Eye Eye exam: Present: EOMI. Absent: scleral icterus Pupils: Present: MAIA - ENT ENT exam: Present: normal exam - Neck Neck exam: Present: normal inspection. Absent: lymphadenopathy, thyromegaly - Respiratory Respiratory exam: Present: His lungs have good breath sounds bilaterally but he does have some slight crackles in the bases. - Cardiovascular Cardiovascular exam: Present: regular rate and rhythm. Absent: gallop, JVD, systolic murmur - GI/Abdominal GI/Abdominal exam: Present: normal bowel sounds, soft. Absent: organomegaly, tenderness - Extremities Exam Extremities exam: Absent: calf tenderness, edema - Neurological Exam Neurological exam: Present: alert, oriented X3, CN II-XII intact. He has no focal deficits. - Psychiatric Psychiatric exam: Present: normal affect, normal mood - Skin Skin exam: Present: warm, dry Results - Labs CBC & BMP: 07/03/16 04:54 07/03/16 04:54 Assessment and Plan (1) Respiratory failure Status: Acute Assessment and plan: Patient's breathing is much better and his oxygenation is okay. He has not having any respiratory distress now. He feels like his breathing is much better. Current Visit: Yes Qualifiers: Chronicity: acute Respiratory failure complication: hypercapnia Qualified Code(s): J96.02 - Acute respiratory failure with hypercapnia (2) Hypertension Status: Chronic Assessment and plan: His blood pressure and heart rate are under better control. Current Visit: Yes Qualifiers: Hypertension type: essential hypertension Qualified Code(s): I10 - Essential (primary) hypertension (3) Diabetes Status: Chronic Assessment and plan: His glucose is 95 this morning. Current Visit: Yes Qualifiers: Diabetes mellitus type: type 2 Diabetes mellitus complication status: without complication Diabetes mellitus chcf insulin use: without chcf use Qualified Code(s): E11.9 - Type 2 diabetes mellitus without complications (4) Community acquired pneumonia Status: Acute Assessment and plan: Patient is feeling better and his breathing is better. His cultures have been negative so far. He is scheduled to have a chest x-ray today. Overall he is better. He can probably go home on oral antibiotics. Current Visit: Yes (5) History of bladder cancer Status: Acute Assessment and plan: He is followed by urology. Current Visit: Yes
[2016-07-03] MEDS ORDERED: predniSONE 10 MG TABLET PO SCH (09:00)
--- NOTE | 2016-07-03 10:13 | Discharge Summary ---
Hospital Course - Hospital Course Hospital Course: Patient is a 80-year-old male with history of diabetes, hypertension, bladder, cancer who was admitted to the emergency room with shortness of breath and hypoxia. He was found to have right-sided pneumonia in addition patient was found to have significant CO2 retention. It was felt that this could be secondary to obesity hypoventilation. Patient was initially admitted to intensive care unit and then transferred to floor. He has improved over last 4 days. He wants to be discharged home. Patient will follow up with Dr. Ramires in about 2 weeks. We will give him a tapering dose of prednisone and Levaquin for 7 more days. Diagnosis - Discharge Diagnosis (1) Community acquired pneumonia Status: Acute (2) Obesity Status: Acute (3) Respiratory failure Status: Acute (4) Diabetes Status: Chronic (5) Hypertension Status: Chronic Discharge Plan - Discharge Data Disposition: Disch To Home/Self Care Condition at Discharge: Stable Discharge Diet: advance to your usual diet Activity: resume usual activities as tolerated - Discharge Medications New predniSONE TAB [PredniSONE] 10 mg PO DAILY #3 tablet Levofloxacin Tab [Levaquin Tab] 750 mg PO DAILY #7 tablet Continue Cyanocobalamin (Vitamin B-12) [Vitamin B-12] 2,500 mcg SL DAILY Ascorbic Acid Tab [Vitamin C Tab] 500 mg PO DAILY amLODIPine [Norvasc] 10 mg PO DAILY Quinapril HCl 20 mg PO DAILY metFORMIN [Glucophage] 500 mg PO DAILY W/BREAKFAST Folic Acid Tab 1 mg PO DAILY Tamsulosin [Flomax] 0.4 mg PO BID Finasteride [Proscar] 5 mg PO DAILY Carvedilol [Coreg] 6.25 mg PO BID - Follow Up or Referral - Forms/Instructions Additional Discharge Instructions: Follow-up with Dr. Ramires in 2 weeks. Please call in medications on discharge Exam - Constitutional Vitals: Period Temp Pulse Resp BP Sys/Mckeon Pulse Ox Last 24 Hr 97.4 F-98.2 F 68-77 16-20 120-169/64-78 94-98 Exam: Examination: GENERAL: NAD. NECK: Neck is supple. CVS: Regular rate and rhythm. S1 and S2 are normal. RESPIRATORY: Lungs are clear. Still with decreased breath sounds at right base ABDOMEN: Soft and nontender. Obese EXT: No edema. Peripheral pulses are present. APPAREL PATTERN MAKER: Nonfocal SKIN: Warm and dry. MSK: No obvious deformity. Discharge Results Procedures and tests throughout hospitalization: Pending Orders 07/03/16 04:00 XR chest 2V IN AM Labs on day of discharge: Labs from last 24 hours 07/03/16 07/03/16 07/02/16 04:54 04:54 22:13 WBC 12.3 H D RBC 4.90 Hgb 14.9 Hct 45.1 MCV 92.0 MCH 30 MCHC 33.0 RDW 14.9 Plt Count 238 MPV 11.0 Neut % (Auto) 81.2 H Lymph % (Auto) 8.4 L [place] % (Auto) 9.5 Eos % (Auto) 0.1 Baso % (Auto) 0.1 Neut # (Auto) 10.0 H Lymph # (Auto) 1.0 L [place] # (Auto) 1.2 H Eos # (Auto) 0.0 Baso # (Auto) 0.0 Immature Gran % 0.7 Nucleated RBC % 0.0 Immature Gran # 0.08 Nucleated RBCs # 0.00 Sodium 143 Potassium 4.1 Chloride 105 Carbon Dioxide 28 Anion Gap 14.1 BUN 33 H Creatinine 1.20 GFR Calculation 80 BUN/Creatinine Ratio 27.00 H Glucose 95 POC Glucose 236 H Calculated Osmolality 291.0 Calcium 8.2 L 07/02/16 07/02/16 16:29 11:53 WBC RBC Hgb Hct MCV MCH MCHC RDW Plt Count MPV Neut % (Auto) Lymph % (Auto) [place] % (Auto) Eos % (Auto) Baso % (Auto) Neut # (Auto) Lymph # (Auto) [place] # (Auto) Eos # (Auto) Baso # (Auto) Immature Gran % Nucleated RBC % Immature Gran # Nucleated RBCs # Sodium Potassium Chloride Carbon Dioxide Anion Gap BUN Creatinine GFR Calculation BUN/Creatinine Ratio Glucose POC Glucose 246 H 129 H Calculated Osmolality Calcium Preliminary micro results at discharge 06/30/16 01:48 Blood Culture - Preliminary Blood No growth at 3 days 06/30/16 01:46 Blood Culture - Preliminary Blood No growth at 3 days DS: Provider Date of admission: 06/30/16 01:23 Primary care physician: Maico Ramires MD Attending physician on admission: Maico Ramires MD Consults: 06/30/16 05:37 Consult to Physician [CONS] Routine Comment: acute respiratory distress Consulting Provider: Thomas Reilly Discharging clinician: Lyndon Pacheco MD
[2016-07-03] MEDS ORDERED: FUROSEMIDE 20 MG/2 ML VIAL ONE (10:26)
[2016-07-03] MEDS: INSULIN REGULAR 100 UNIT/ML SUBCUT SCH ×2 (10:29→12:37)
[2016-07-03] MEDS: TAMSULOSIN 0.4 MG CAPSULE PO SCH (10:30)
[2016-07-03] MEDS: CYANOCOBALAMIN 500 MCG TABLET PO SCH (10:30)
[2016-07-03] MEDS: FINASTERIDE 5 MG TABLET PO SCH (10:30)
[2016-07-03] MEDS: FOLIC ACID 1 MG TABLET PO SCH (10:31)
[2016-07-03] MEDS: CARVEDILOL 6.25 MG TABLET PO SCH (10:31)
[2016-07-03] MEDS: PANTOPRAZOLE 40 MG TABLET PO SCH (10:31)
[2016-07-03] MEDS: metFORMIN 500 MG TABLET PO SCH (10:31)
[2016-07-03] MEDS: DOCUSATE SODIUM 100 MG CAPSULE PO SCH ×2 (10:31→10:40)
[2016-07-03] MEDS: CALCIUM (CITRATE) 200 MG TABLET PO SCH (10:31)
[2016-07-03] MEDS: QUINAPRIL 20 MG TABLET PO SCH (10:32)
[2016-07-03] MEDS: ASCORBIC ACID 500 MG TABLET PO SCH (10:32)
[2016-07-03] MEDS: amLODIPine 10 MG TABLET PO SCH (10:35)
[2016-07-03] MEDS: FUROSEMIDE 40 MG/4 ML VIAL IV SCH (10:35)
[2016-07-03 13:01] VITALS: BP 144/75
--- NOTE | 2016-07-07 08:22 | Physician Query Form ---
CLICK EDIT DOCUMENT TO SELECT QUERY ANSWER --> OK --> SIGN Meenakshi Parry RN Clinical Track Vehicle Repairer W) [phone] (f) [phone] [email or web address] PROVIDERS: Make your selection(s) from the choices in EACH section by typing an "x" and enter comments in the comment section. Please use your independent medical judgment in providing your response. This request does not imply that any particular answer is desired or expected. CLINICAL INDICATORS: (Providers should not edit this section) Pt. admitted with pneumonia and acute respiratory failure. Based on Pulse of 97 , Respirations=36, WBC of 17.8. Pt. treated with IV Levaquin. Please clarify which, if any, of the following is the etiology of the above symptoms and treatment rendered: ( ) Severe Sepsis (sepsis with acute organ failure) - Please specify type acute organ failure: ( ) Sepsis due to a localized infection, please specify site: ( ) Sepsis due to a device, implant or graft, please specify: ( ) Localized infection only, without systemic illness, please specify site: ( ) Bacteremia (abnormal lab finding only, does not indicate systemic illness) ( ) Other condition, please specify: ( ) Clinically unable to determine Criteria for Sepsis (SIRS due to an infection) should be based on 2 or more of the following being present: Temperature > 101F or < 96.8F WBC > 12,000 or < 4,000, or > 10% bands Tachycardia HR > 90 beats/minute Tachypnea RR > 20 breaths/minute or PaCO2 > 32mmHg Lactate level > 2.0 mmol/L (>4 is equivalent to severe sepsis) Altered Mental Status Mottling of skin or prolonged capillary refill Non-diabetic hyperglycemia (blood sugar >120 mg/dl) Other evidence of acute organ failure associated with sepsis ( severe sepsis) COMMENTS: Please ask Dr. Ramires. his patient Use of terms such as suspected, likely, or probable (associated with a specific diagnosis that is being evaluated, monitored, or treated as if it exists) are acceptable and can be restated in the discharge summary if not ruled out. MTDD
--- NOTE | 2016-07-08 13:27 | Physician Query Form ---
CLICK EDIT DOCUMENT TO SELECT QUERY ANSWER --> OK --> SIGN Meenakshi Parry RN Clinical Supervisor Title W) [phone] (f) [phone] [email or web address] PROVIDERS: Make your selection(s) from the choices in EACH section by typing an "x" and enter comments in the comment section. Please use your independent medical judgment in providing your response. This request does not imply that any particular answer is desired or expected. CLINICAL INDICATORS: (Providers should not edit this section) Pt. admitted with pneumonia and acute respiratory failure. Based on Pulse of 97 , Respirations=36, WBC of 17.8. Pt. treated with IV Levaquin. Please clarify which, if any, of the following is the etiology of the above symptoms and treatment rendered: ( ) Severe Sepsis (sepsis with acute organ failure) - Please specify type acute organ failure: ( ) Sepsis due to a localized infection, please specify site: ( ) Sepsis due to a device, implant or graft, please specify: ( ) SIRS due to noninfectious origin ( ) Localized infection only, without systemic illness, please specify site: ( ) Bacteremia (abnormal lab finding only, does not indicate systemic illness) ( x) Other condition, please specify: Patient was admitted with community- acquired pneumonia with hypoxia ( ) Clinically unable to determine Criteria for Sepsis (SIRS due to an infection) should be based on 2 or more of the following being present: Temperature > 101F or < 96.8F WBC > 12,000 or < 4,000, or > 10% bands Tachycardia HR > 90 beats/minute Tachypnea RR > 20 breaths/minute or PaCO2 > 32mmHg Lactate level > 2.0 mmol/L (>4 is equivalent to severe sepsis) Altered Mental Status Mottling of skin or prolonged capillary refill Non-diabetic hyperglycemia (blood sugar >120 mg/dl) Other evidence of acute organ failure associated with sepsis ( severe sepsis) COMMENTS: Use of terms such as suspected, likely, or probable (associated with a specific diagnosis that is being evaluated, monitored, or treated as if it exists) are acceptable and can be restated in the discharge summary if not ruled out. MTDD
== END 2016-07-03 12:15 | disposition home or self-care (01) | DRG 987 ==
LOC: N.ED 23:51 → N.EDINP 06-30 01:23 → N.ICU 06-30 01:58 → N.2E 07-01 16:40
PROVIDERS: ADMIT Family Medicine; ATTEND Family Medicine

== ENCOUNTER 2016-09-22 16:26 | Inpatient (IN) ==
[2016-09-22] MEDS ORDERED: ACETAMINOPHEN 325 MG TABLET PO PRN (16:34)
[2016-09-22] MEDS ORDERED: ONDANSETRON 4 MG/2 ML VIAL IV PRN (16:34)
[2016-09-22] MEDS ORDERED: MORPHINE 2 MG/1 ML SYRINGE IV PRN (16:34)
[2016-09-22] MEDS ORDERED: DEXTROSE 50% 25 GM/50 ML VIAL IV PRN (16:34)
[2016-09-22] MEDS ORDERED: GLUCAGON 1 MG VIAL IM PRN (16:34)
--- NOTE | 2016-09-22 16:51 | Family Practice History&Phys ---
Assessment and Plan (1) Mobitz type 2 second degree AV block Status: Acute Assessment and plan: 09/22/2016: Cardiology will be consulted. Cardiac isoenzymes and electrolytes have been ordered. (2) Exertional dyspnea Status: Acute Assessment and plan: 09/22/2016: Suspect patient has some element of CHF. Patient did have an EKG on 09/12/2016 which showed atrial fibrillation. History of Present Illness Chief complaint: Shortness of breath History of present illness: Mr. Johnson is a 81 year old male Patient is a 81-year-old white male presented the office on day of admission with increasing shortness of breath. Patient states this started earlier in the month in fact been admitted for an atypical pneumonitis and treated with antibiotics. Patient states she has been coughing and short of breath particularly with exertion ever since that time. He denies any chest pain and he denies any neck shoulder arm discomfort. Patient states when he lies down at night he gets short of breath he certainly gets short of breath when he exerts himself. He has not noticed any increased swelling of his lower extremities. He is scheduled to have a sleep evaluation next month. He is not having any fever or chills and states she is not coughing up any sputum at present. In the office he was noted to have an irregular rhythm on EKG showed what appeared to be a type II second-degree AV block. Patient was admitted for further evaluation. I reviewed his chest x-ray from 09/12/2016 he appeared to have some CHF on this study. Home Medications Medication Instructions Recorded Confirmed Type Carvedilol [Coreg] 6.25 mg PO BID 06/27/16 06/30/16 History Cyanocobalamin (Vitamin B-12) 2,500 mcg SL DAILY 06/27/16 06/30/16 History [Vitamin B-12] Finasteride [Proscar] 5 mg PO DAILY 06/27/16 06/30/16 History Folic Acid Tab 1 mg PO DAILY 06/27/16 06/30/16 History Quinapril HCl 20 mg PO DAILY 06/27/16 06/30/16 History Tamsulosin [Flomax] 0.4 mg PO BID 06/27/16 06/30/16 History amLODIPine [Norvasc] 10 mg PO DAILY 06/27/16 06/30/16 History metFORMIN [Glucophage] 500 mg PO DAILY W/BREAKFAST 06/27/16 06/30/16 History Ascorbic Acid Tab [Vitamin C Tab] 500 mg PO DAILY 06/30/16 06/30/16 History Levofloxacin Tab [Levaquin Tab] 750 mg PO DAILY #7 tablet 07/03/16 Rx predniSONE TAB [PredniSONE] 10 mg PO DAILY #3 tablet 07/03/16 Rx Allergies Allergy/AdvReac Type Severity Reaction Status Date / Time No Known Allergies Allergy Verified 06/28/16 06:43 - Constitutional Constitutional: Present: lethargy, malaise, weakness. Absent: chills, fatigue - EENT Eyes: Absent: blurry vision, loss of vision Ears: Absent: decreased hearing, ear pain Nose, mouth and throat: Absent: hoarseness, nasal congestion, sinus pressure, sore throat - Cardiovascular Cardiovascular: Present: dyspnea, dyspnea on exertion, orthopnea, PND. Absent: chest pain at rest, chest pain with activity, lightheadedness - Respiratory Respiratory: Present: cough, dyspnea, dyspnea on exertion. Absent: wheezing - Gastrointestinal Gastrointestinal: Absent: abdominal pain, diarrhea, dyspepsia, dysphagia, melena , nausea, vomiting - Genitourinary Genitourinary: Absent: dysuria, flank pain, urinary frequency - Musculoskeletal Musculoskeletal: Absent: back pain, joint swelling - Neurological Neurological: Absent: confusion, focal weakness, headache(s), numbness, radicular pain - Psychiatric Psychiatric: Absent: confusion, depression - Endocrine Endocrine: Present: fatigue. Absent: polydipsia, polyphagia - Hematologic/Lymphatic Hematologic/Lymphatic: Absent: easy bleeding, easy bruising Medical,Surgical,& Family Hx - Medical History Cardio: History of: Hypertension Neurology: No history of: Seizures HEENT: History of: Eye Problem (wears glasses), Dental Problems (dentures full upper and partial lower) Endocrine: History of: Diabetes Mellitus (NIDDM) Respiratory: No history of: Pneumonia (Hx Pneum Vac), Respiratory Problems (Flu Vac Current 2016/2017 Season) Genitourinary: History of: Bladder Problem (Sees Dr. Damon Ramires), Prostate Problems (BPH), Genitourinary Cancer (Bladder CA 2014) Gastrointestinal: No history of: Polyps Musculoskeletal: History of: Musculoskeletal Problems (Arthritis) Hematology: No history of: Sickle Cell Disease Other: History of: Cancer (Bladder Tumor) No history of: Anesthesia Reactions - Surgical History Thoracic Surgeries: Patient denies;: Organ Transplant, Lobectomy HEENT Surgeries: Patient denies: Eye Surgery (06/28/16 Sched for Lt Cataract) Abdominal Surgeries: Surgical HX of: Colonoscopy Patient denies: Abdominal Surgery Reproductive Surgeries: Surgical HX of;: Cystoscopy (05/2016), Genitourinary Surgery (Cryoablation Bladder Tumor) - Family History Family History: Reports;: Family Heart Disease (Father) - Social History Smoking Status: Never smoker Exam - Constitutional Exam: General: Objective patient is a well-developed white male in no acute distress. Patient is able to give good history. And noticed that he was quite dyspneic after walking into the room. HEENT: Pupils equal and reactive to light. Patent nares and airway Neck: No meningismus, adenopathy, thyromegaly. There are no auscultated carotid bruits. Cardiovascular: Irregularly irregular rhythm. No murmurs or gallops Chest: Patient's noted to have minimal expiratory wheeze scattered throughout both bases.. Abdomen: Soft nontender to palpation No masses, rebound, guarding or tenderness. Neuro: Cranial nerves intact and DTRs and strength symmetric in all extremities. Dermatologic: No evidence of abnormal lesions or masses. Musculoskeletal: There is no joint swelling or tenderness or deformity. Extremities: Patient has 1+ pretibial edema. There is no calf swelling or tenderness Results - Impressions Type II second-degree AV block was noted
[2016-09-22 18:53] LABS: Basophils # 0.1 10*3/uL (0.0-0.2); Basophils % 0.5 % (0.0-0.8); Eosinophils # 0.4 10*3/uL (0.0-0.87); Eosinophils % 4.1 % (0.00-10.9); Hematocrit 46.6 VOL% (42.0-52.0); Hemoglobin 14.8 GM/DL (14.0-18.0); Immature Granulocytes % 0.4 %; Immature Granulocytes Absolute 0.04 #; Lymphocytes # 1.3 10*3/uL (1.4-4.0); Lymphocytes % 14.1 % (21.2-54.2); Mean Corpuscular HGB Conc 31.8 GM/DL (32-36); Mean Corpuscular Hemoglobin 31 PG (27-34); Mean Corpuscular Volume 96.5 FL (87-102); Mean Platelet Volume 10.3 FL (9.6-12.0); Monocytes % 10.7 % (1.7-12.7); Neutrophils # 6.6 10*3/uL (1.4-7.4); Neutrophils % 70.2 % (38.7-73.9); Platelet Count 236 T/CUMM (130-400); Red Blood Count 4.83 MC/CUMM (3.8-5.5); Red Cell Distribution Width 14.7 % (9.3-17.3); White Blood Count 9.4 T/CUMM (4-12)
[2016-09-22] MEDS: SODIUM CHLORIDE 0.45% 1,000 ML IV SCH (18:58)
[2016-09-22 19:14] LABS: Albumin 3.7 G/DL (3.4-5.0); Bilirubin,Total 0.7 MG/DL (0.2-1.0); Calcium 8.3 MG/DL (8.5-10.1); Magnesium 2.1 MG/DL (1.8-2.4); Osmolality,Calculated 295.6 MOS/KG (273-304); Potassium 4.1 MMOL/L (3.5-5.1); Total Protein 6.4 G/DL (6.4-8.3)
[2016-09-22 19:19] LABS: Free T4 (Free Thyroxine) 1.14 NG/DL (0.76-1.46); Thyroid Stimulating Hormone 0.964 uIU/ml (0.358-3.74)
[2016-09-22 19:26] LABS: Risk Ratio 2.07; VLDL CHOLESTEROL 10.6 MG/DL
--- NOTE | 2016-09-22 19:53 | XRay Report ---
XR chest 2V Indication: Shortness of breath Comparison: 01 Jul 2016 Findings: The heart and mediastinum are normal in size and configuration. The pulmonary vascularity is normal in caliber. There is trace left lower lung density and effusion. No other lung infiltrates, effusions, pneumothorax or other abnormality is demonstrated. Impression: Trace left lower lung density and effusion, may indicate pneumonia. PROCEDURE INTERPRETED AT [facility] DEPARTMENT OF RADIOLOGY Final Report Signed by: Dr. Israel Santacruz
--- NOTE | 2016-09-22 20:02 | Ultrasound Report ---
Venous Doppler ultrasound bilateral lower extremities Indication: Shortness of breath Comparison: None available Findings: No evidence of echogenic, noncompressible thrombus seen in the visualized veins of the extremities. Color Doppler venous waveform pattern is within normal limits. Impression: No evidence of deep venous thrombosis. Ultrasound images stored and captured. PROCEDURE INTERPRETED AT [facility] DEPARTMENT OF RADIOLOGY Final Report Signed by: Dr. Israel Santacruz
[2016-09-22] MEDS: DOCUSATE SODIUM 100 MG CAPSULE PO SCH (21:02)
[2016-09-22] MEDS: TAMSULOSIN 0.4 MG CAPSULE PO SCH (21:02)
[2016-09-22] MEDS: CARVEDILOL 6.25 MG TABLET PO SCH (21:03)
[2016-09-22] MEDS: ENOXAPARIN 40 MG/0.4 ML SYRINGE SUBCUT SCH (21:03)
[2016-09-22] MEDS: INSULIN LISPRO 100 UNIT/ML SUBCUT SCH (21:18)
--- NOTE | 2016-09-23 06:53 | Cardiology Consult Note ---
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 Status: Acute Current Visit: Yes (4) Diabetes Status: Chronic Current Visit: No Qualifiers: Diabetes mellitus type: type 2 Diabetes mellitus complication status: without complication Diabetes mellitus penitentiary insulin use: without penitentiary use Qualified Code(s): E11.9 - Type 2 diabetes mellitus without complications (5) Obesity Status: Acute Current Visit: No (6) Mobitz type 2 second degree AV block Status: Acute Current Visit: Yes (7) Exertional dyspnea Status: Acute Current Visit: Yes History of Present Illness - Data of Consult Patient: new to practice Consult date: 09/23/16 Requesting Physician: Maico Ramires Primary care physician: Maico Ramires - Consult Narrative Reason for consult: Dysrhythmia History of present illness: Mr. Johnson is a 81 year old male with 1 month duration of progressive dyspnea. He also has new onset atrial fibrillation. He has had lower extremity edema he describes multiple pillow orthopnea. He presents after a recent pneumonitis for dyspnea evaluation when I saw the patient he was extremely dyspneic he also is in atrial fibrillation. By cardiac exam he appears to have pulmonary edema he also has cardiomegaly by exam of the PMI being laterally displaced to the left of the midclavicular line. He has 1+ bilateral lower extremity edema. He has no family history of coronary artery disease. He still not had an EKG and his echo has also not been performed. He has diabetes and probable dyslipidemia's obesity sedentary has advanced age of 81. The patient denies any chest discomfort. He is sitting in the bed now head up about 30 and he is moderately tachypneic. He is unable to complete complete sentences without some pulse and pulse breath. I think the patient will likely need a left heart catheterization but I would like to see his EKG and his echo before proceeding with this invasive test in the absence of an emergency. I have discussed with Dr. Ramires. We will continue to monitor. I made adjustments to his medicines and hopefully we can diurese him so that he can lie supine. CC: Maico Ramires MD - Home Medications and Allergies Home Medications: Home Medications Medication Instructions Recorded Confirmed Type Carvedilol [Coreg] 6.25 mg PO BID 06/27/16 09/23/16 History Cyanocobalamin (Vitamin B-12) 2,500 mcg SL DAILY 06/27/16 09/23/16 History [Vitamin B-12] Finasteride [Proscar] 5 mg PO DAILY 06/27/16 09/23/16 History Folic Acid Tab 1 mg PO DAILY 06/27/16 09/23/16 History Quinapril HCl 20 mg PO DAILY 06/27/16 09/23/16 History Tamsulosin [Flomax] 0.4 mg PO BID 06/27/16 09/23/16 History amLODIPine [Norvasc] 10 mg PO DAILY 06/27/16 09/23/16 History metFORMIN [Glucophage] 500 mg PO DAILY W/BREAKFAST 06/27/16 09/23/16 History Ascorbic Acid Tab [Vitamin C Tab] 500 mg PO DAILY 06/30/16 09/23/16 History Levofloxacin Tab [Levaquin Tab] 750 mg PO DAILY #7 tablet 07/03/16 09/23/16 Rx predniSONE TAB [PredniSONE] 10 mg PO DAILY #3 tablet 07/03/16 09/23/16 Rx Allergies/Adverse Reactions: Allergies Allergy/AdvReac Type Severity Reaction Status Date / Time No Known Allergies Allergy Verified 06/28/16 06:43 - Constitutional Constitutional: Present: night sweats. Absent: anorexia, fever(s), frequent falls, increased appetite, weight gain, weight loss - EENT Eyes: Absent: blurry vision, diplopia Ears: Absent: ear discharge Nose, mouth and throat: Absent: dysphagia, epistaxis, neck mass - Cardiovascular Cardiovascular: Present: dyspnea, dyspnea on exertion, edema, orthopnea. Absent : chest pain at rest - Respiratory Respiratory: Present: dyspnea, dyspnea on exertion - Gastrointestinal Gastrointestinal: Present: bloating. Absent: abdominal pain, constipation, heartburn - Genitourinary Genitourinary: Absent: difficulty urinating, hematuria, nocturia - Musculoskeletal Musculoskeletal: Present: arthralgias. Absent: joint swelling - Neurological Neurological: Absent: abnormal gait, confusion, convulsions, disequilibrium, radicular pain, syncope - Psychiatric Psychiatric: Absent: anxiety, depression - Endocrine Endocrine: Absent: cold intolerance, heat intolerance - Hematologic/Lymphatic Hematologic/Lymphatic: Absent: easy bleeding, easy bruising Medical,Surgical,& Family Hx - Medical History Cardio: History of: Hypertension Neurology: No history of: Seizures HEENT: History of: Eye Problem (wears glasses), Dental Problems (dentures full upper and partial lower) Endocrine: History of: Diabetes Mellitus (NIDDM) Respiratory: No history of: Pneumonia (Hx Pneum Vac), Respiratory Problems (Flu Vac Current Season) Genitourinary: History of: Bladder Problem (Sees Dr. Damon Ramires), Prostate Problems (BPH), Genitourinary Cancer (Bladder CA 2014) Gastrointestinal: No history of: Polyps Musculoskeletal: History of: Musculoskeletal Problems (Arthritis) Hematology: No history of: Sickle Cell Disease Other: History of: Cancer (Bladder Tumor) No history of: Anesthesia Reactions - Surgical History Thoracic Surgeries: Patient denies;: Organ Transplant, Lobectomy HEENT Surgeries: Patient denies: Eye Surgery (06/28/16 Sched for Lt Cataract) Abdominal Surgeries: Surgical HX of: Colonoscopy Patient denies: Abdominal Surgery Reproductive Surgeries: Surgical HX of;: Cystoscopy (05/2016), Genitourinary Surgery (Cryoablation Bladder Tumor) - Family History Family History: Reports;: Family Heart Disease (Father) Denies;: Family Cancer, Family Diabetes, Family Hematology, Family Hypertension, Family Psychiatric Problems, Family Stroke - Social History Smoking Status: Never smoker Frequency of Alcohol Use: None Marital Status: Lives With:: Spouse Functional capacity: independent ambulation Physical Examination Vital Signs Temp Pulse Resp BP 97.4 F L 127 H 22 158/98 09/22/16 18:21 09/22/16 18:21 09/22/16 18:21 09/22/16 18:21 General: Present: Appears Well HEENT: Present: Normocephaly Neck: Present: Supple Neck, Midline Trachea Cardiac: Present: Irregularly Regular Lungs: Present: Decreased Breath Sounds, Bibasilar Rales, Wheezes, Other ( Prolonged expiratory phase) Neuro: Present: Cranial Nerve 2-12 Intact Abdomen: Present: Soft, Active Bowel Sounds Musculoskeletal: Present: Erythematous Joints, Decreased Range of Motion Extremities: Present: Normal Gait, No Clubbing, +2 Edema Result/EKG - Labs CBC & BMP: 09/22/16 18:32 09/22/16 18:32 Labs: Laboratory Results - last 24 hr 09/22/16 09/22/16 09/22/16 18:32 18:32 18:32 WBC 9.4 RBC 4.83 Hgb 14.8 Hct 46.6 MCV 96.5 MCH 31 MCHC 31.8 L RDW 14.7 Plt Count 236 MPV 10.3 Neut % (Auto) 70.2 Lymph % (Auto) 14.1 L [place] % (Auto) 10.7 Eos % (Auto) 4.1 Baso % (Auto) 0.5 Neut # (Auto) 6.6 Lymph # (Auto) 1.3 L [place] # (Auto) 1.0 H Eos # (Auto) 0.4 Baso # (Auto) 0.1 Immature Gran % 0.4 Nucleated RBC % 0.0 Immature Gran # 0.04 Nucleated RBCs # 0.00 Immature Plt Fraction 0.0 Sodium 146 H Potassium 4.1 Chloride 108 H Carbon Dioxide 31 Anion Gap 11.1 BUN 20 H Creatinine 1.10 GFR Calculation 90 BUN/Creatinine Ratio 18.00 Glucose 145 H POC Glucose Calculated Osmolality 295.6 Calcium 8.3 L Magnesium 2.1 Total Bilirubin 0.70 AST 27 ALT 41 Alkaline Phosphatase 165 H B-Natriuretic Peptide Total Protein 6.4 Albumin 3.7 Globulin 2.7 Albumin/Globulin Ratio 1.3 Triglycerides 53 Cholesterol 122 LDL Cholesterol 58.0 VLDL Cholesterol 10.6 HDL Cholesterol 59 Heart Disease Risk Ratio 2.07 Free T4 TSH 3rd Generation 09/22/16 09/22/16 09/22/16 18:32 18:32 21:12 WBC RBC Hgb Hct MCV MCH MCHC RDW Plt Count MPV Neut % (Auto) Lymph % (Auto) [place] % (Auto) Eos % (Auto) Baso % (Auto) Neut # (Auto) Lymph # (Auto) [place] # (Auto) Eos # (Auto) Baso # (Auto) Immature Gran % Nucleated RBC % Immature Gran # Nucleated RBCs # Immature Plt Fraction Sodium Potassium Chloride Carbon Dioxide Anion Gap BUN Creatinine GFR Calculation BUN/Creatinine Ratio Glucose POC Glucose 162 H Calculated Osmolality Calcium Magnesium Total Bilirubin AST ALT Alkaline Phosphatase B-Natriuretic Peptide 108 H Total Protein Albumin Globulin Albumin/Globulin Ratio Triglycerides Cholesterol LDL Cholesterol VLDL Cholesterol HDL Cholesterol Heart Disease Risk Ratio Free T4 1.14 TSH 3rd Generation 0.964 - EKG EKG results: interpreted by me EKG shows: atrial fibrillation
--- NOTE | 2016-09-23 07:09 | EKG Report ---
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
[2016-09-23] MEDS ORDERED: ALBUTEROL 2.5 MG/3 ML NEB RESP TX PRN (07:53)
--- NOTE | 2016-09-23 07:57 | Family Practice Progress Note ---
Family Practice - PN: Subj Interval history: Patient states he still quite dyspneic. He has audible wheezes and I will begin him on some albuterol treatments. Chest x-ray performed revealed him to have a left effusion and cardiomegaly. His left mainstem bronchus is also displaced superiorly. His BNP was slightly elevated. Patient denies any pain or discomfort of any sort. He did have his echocardiogram and the report is pending. His TSH and magnesium levels were normal. I will check some cardiac isoenzymes as well. No evidence of DVT on his venous Dopplers. Exam (Progress Note) - Constitutional Vitals: Period Temp Pulse Resp BP Sys/Mckeon Pulse Ox Last 24 Hr 97.0 F-99.1 F 68-127 16-22 139-162/77-98 94-98 Exam: Objective the well-developed gentleman is awake alert and able give good history. He has audible wheezing and has the head of the bed elevated. Cardiovascular: Heart rates irregular and appears to be in atrial fibrillation this morning. I hear no murmurs or gallops. Respiratory: He has bibasilar rales and inspiratory and expiratory wheeze. Abdomen: Abdomen soft and nontender to palpation. Extremities: He has 1+ pitting pretibial edema. Results - Labs CBC & BMP: 09/22/16 18:32 09/22/16 18:32 Lab Results: I have reviewed the past 24 hour labs - Impressions Patient appears to have atrial flutter this morning. - Diagnostic Findings Procedure: Chest x-ray: report reviewed by me (Cardiomegaly and small left pleural effusion.) Assessment and Plan (1) Mobitz type 2 second degree AV block Status: Acute Assessment and plan: 09/22/2016: Cardiology will be consulted. Cardiac isoenzymes and electrolytes have been ordered. 09/15/2016: Patient appears to be in atrial fib/flutter this morning Current Visit: Yes (2) Exertional dyspnea Status: Acute Assessment and plan: 09/22/2016: Suspect patient has some element of CHF. Patient did have an EKG on 09/12/2016 which showed atrial fibrillation. 09/23/2016: Echocardiogram report is pending, patient's TSH and other laboratory studies are unremarkable. Cardiac isoenzymes will be ordered. Current Visit: Yes
[2016-09-23] MEDS: INSULIN LISPRO 100 UNIT/ML SUBCUT SCH ×4 (08:04→21:14)
[2016-09-23 08:26] LABS: Apearance,Urine CLEAR (Clear); Bilirubin,Urine Negative (Negative); Blood, Urine Negative (Negative); Glucose,Urine (UA) Negative (Negative); Ketones,Urine Negative (Negative); Mucus,Urine Occasional /LPF (Occasional); Nitrite,Urine Negative (Negative); Protein,Urine 100 MG/DL; RBC,Urine <1 /HPF (0-4); Urine Color Yellow (Yellow); Urine Specific Gravity 1.017 (1.001-1.035); Urine Urobilinogen < 2.0 EU/DL (0.2-1.0); WBC,Urine 1 /HPF (0-6)
[2016-09-23] MEDS ORDERED: DEXTROSE 50% 25 GM/50 ML SYRINGE IV PRN (08:30)
[2016-09-23] MEDS: FUROSEMIDE 40 MG/4 ML VIAL IV SCH ×2 (08:32→16:21)
[2016-09-23] MEDS: CARVEDILOL 6.25 MG TABLET PO SCH ×2 (08:34→21:14)
[2016-09-23] MEDS: TAMSULOSIN 0.4 MG CAPSULE PO SCH ×2 (08:34→21:14)
[2016-09-23] MEDS: amLODIPine 10 MG TABLET PO SCH (08:34)
[2016-09-23] MEDS: PANTOPRAZOLE 40 MG TABLET PO SCH (08:34)
[2016-09-23] MEDS: QUINAPRIL 20 MG TABLET PO SCH (08:34)
[2016-09-23] MEDS: DOCUSATE SODIUM 100 MG CAPSULE PO SCH ×3 (08:34→21:16)
[2016-09-23] MEDS: FINASTERIDE 5 MG TABLET PO SCH (08:34)
[2016-09-23] MEDS: POTASSIUM CHLORIDE 20 MEQ TABLET PO SCH ×2 (08:34→21:14)
[2016-09-23] MEDS: FOLIC ACID 1 MG TABLET PO SCH (08:34)
[2016-09-23] MEDS: ASCORBIC ACID 500 MG TABLET PO SCH (08:34)
[2016-09-23] MEDS: CYANOCOBALAMIN 2500 MCG SL SCH (08:38)
[2016-09-23] MEDS: ALBUTEROL 2.5 MG/3 ML NEB RESP TX SCH ×2 (14:53→20:01)
--- NOTE | 2016-09-23 15:20 | ECHO Report ---
Fernie Johnson Exam Date: 09/23/2016 09:26 Referring Physician: Technologist: Page Back Age: 81 Ht (in): 74 Wt (lb): 270 Gender: M Exam Location: [facility] Echo Indications: 2 degree heart block, dysrhythmia, HTN, NIDDM, [place] BP: 145 / 88 HR: 106 Rhythm: Atrial fibrillation Technical Quality: Technically difficult study IMPRESSIONS Left ventricular ejection fraction is estimated at 50-55 %. The patient is in atrial fibrillation with a rate greater than 110 bpm diastolic parameters are therefore equivocal. There is poor endocardial resolution but no clear regional wall motion abnormality. MEASUREMENTS (Male / Female) Normal Values 2D ECHO LV Diastolic Diameter PLAX 4.8 cm 4.2 - 5.9 / 3.9 - 5.3 cm LV Systolic Diameter PLAX 3.4 cm LV Fractional Shortening PLAX 28.4 % IVS Diastolic Thickness 1.3 cm 0.6 - 1.0 / 0.6 - 0.9 cm LVPW Diastolic Thickness 1.1 cm 0.6 - 1.0 / 0.6 - 0.9 cm Aortic Root Diameter 2.7 cm LA Systolic Diameter LX 3.8 cm 3.0 - 4.0 / 2.7 - 3.8 cm DOPPLER TR Peak Velocity 164.0 cm/s TR Peak Gradient 10.8 mmHg FINDINGS Left Ventricle Normal left ventricular cavity size. Mild concentric left ventricular hypertrophy. Left ventricular ejection fraction is estimated at 50-55 %. There is poor endocardial resolution but no clear regional wall motion abnormality. The patient is in atrial fibrillation with a rate greater than 110 bpm diastolic parameters are therefore equivocal. Right Ventricle The right ventricle is enlarged. Right Atrium Normal right atrial size. Left Atrium Normal left atrial size. Mitral Valve Mild mitral annular and leaflet calcification with mild mitral regurgitation. Aortic Valve Mild aortic valve sclerosis. Tricuspid Valve Morphologically normal tricuspid valve. Pulmonic Valve Morphologically normal pulmonic valve. Pericardium No pericardial effusion. Aorta Normal size aortic root and proximal ascending aorta. Aisha Crenshaw (Electronically Signed) Final Date: 23 September 2016 15:19
[2016-09-23] MEDS: SODIUM CHLORIDE 0.45% 1,000 ML IV SCH (16:51)
[2016-09-23] MEDS: ENOXAPARIN 40 MG/0.4 ML SYRINGE SUBCUT SCH (21:14)
[2016-09-24] MEDS: ALBUTEROL 2.5 MG/3 ML NEB RESP TX SCH ×4 (00:04→18:30)
[2016-09-24] MEDS: SODIUM CHLORIDE 0.45% 1,000 ML IV SCH (04:52)
[2016-09-24 06:03] LABS: Basophils % 0.5 % (0.0-0.8); Eosinophils # 0.3 10*3/uL (0.0-0.87); Eosinophils % 3.6 % (0.00-10.9); Hematocrit 44.9 VOL% (42.0-52.0); Hemoglobin 14.6 GM/DL (14.0-18.0); Immature Granulocytes % 0.2 %; Immature Granulocytes Absolute 0.02 #; Lymphocytes # 1.3 10*3/uL (1.4-4.0); Lymphocytes % 14.1 % (21.2-54.2); Mean Corpuscular HGB Conc 32.5 GM/DL (32-36); Mean Corpuscular Hemoglobin 31 PG (27-34); Mean Corpuscular Volume 94.5 FL (87-102); Mean Platelet Volume 11.3 FL (9.6-12.0); Monocytes % 11.8 % (1.7-12.7); Neutrophils # 6.2 10*3/uL (1.4-7.4); Neutrophils % 69.8 % (38.7-73.9); Red Blood Count 4.75 MC/CUMM (3.8-5.5); Red Cell Distribution Width 14.6 % (9.3-17.3); White Blood Count 8.9 T/CUMM (4-12)
[2016-09-24 06:09] LABS: Platelet Count 143 T/CUMM (130-400)
[2016-09-24 06:36] LABS: Calcium 8.6 MG/DL (8.5-10.1); Osmolality,Calculated 291.7 MOS/KG (273-304); Potassium 4.1 MMOL/L (3.5-5.1)
[2016-09-24 06:45] LABS: Platelet Estimate Normal
--- NOTE | 2016-09-24 07:38 | Family Practice Progress Note ---
Family Practice - PN: Subj Interval history: Patient states he is feeling some better this morning and I note that he has lost 1 kg since yesterday. He is not having any chest pain or shortness of breath at rest. Results of his echocardiogram showed good ejection fraction. His LFTs are slightly elevated today. He has had this in the past and was felt to be secondary to fatty liver disease. He still in atrial fibrillation on monitor but his rate is controlled. I have prescribed him some Eliquis for his atrial fibrillation told the nurses to hold this until cardiology sees him. He may have a left heart catheterization in his future. Exam (Progress Note) - Constitutional Vitals: Period Temp Pulse Resp BP Sys/Mckeon Pulse Ox Last 24 Hr 96.8 F-98.3 F 52-106 15-20 123-180/69-88 92-99 Exam: Objective the well-developed gentleman is awake alert and able give good history. He appears comfortable at rest. Cardiovascular: Heart rates irregular and appears to be in atrial fibrillation this morning. I hear no murmurs or gallops. Respiratory: He has bibasilar rales and inspiratory and expiratory wheeze are improved. Abdomen: Abdomen soft and nontender to palpation. Extremities: He has 1+ pitting pretibial edema. Results - Labs CBC & BMP: 09/24/16 05:36 09/24/16 05:36 Lab Results: I have reviewed the past 24 hour labs Assessment and Plan (1) Mobitz type 2 second degree AV block Status: Resolved Assessment and plan: 09/22/2016: Cardiology will be consulted. Cardiac isoenzymes and electrolytes have been ordered. 09/15/2016: Patient appears to be in atrial fib/flutter this morning Current Visit: Yes (2) Exertional dyspnea Status: Acute Assessment and plan: 09/22/2016: Suspect patient has some element of CHF. Patient did have an EKG on 09/12/2016 which showed atrial fibrillation. 09/23/2016: Echocardiogram report is pending, patient's TSH and other laboratory studies are unremarkable. Cardiac isoenzymes will be ordered. 09/24/2016: Laboratory studies are unremarkable. Echocardiogram showed preserved ejection fraction. I think the majority of his difficulties are related to his atrial fibrillation. Cardiology is evaluating him for possible diagnostic left heart catheterization Current Visit: Yes
[2016-09-24] MEDS ORDERED: diphenhydrAMINE CAP 25 MG CAPSULE PO ONE (07:47)
[2016-09-24] MEDS ORDERED: ASPIRIN 325 MG TABLET PO ONE (07:47)
[2016-09-24] MEDS ORDERED: DIAZEPAM 5 MG TABLET PO ONE (07:47)
--- NOTE | 2016-09-24 07:50 | EKG Report ---
Stationary ECG Study [facility] Test Date: 09/24/2016 7:48:35 AM Pat Name: LORENZO GUERRA Department: Room: 270 Gender: M Sleeve Separator: WENDY : 1935 Requested by: Julien Cueva Order Number: [id number] Jeramy MD: VANESSA OLEARY Intervals [place] Rate: 94 P: 999 [place]: 0 QRS: 87 QRSD: 88 T: -1 QT: 349 QTc: 401 Interpretive Statements ATRIAL FIBRILLATION NON-SPECIFIC ST-T CHANGES Electronically Signed On 09-25-16 16:58:03 CDT by VANESSA OLEARY [email or web address]
--- NOTE | 2016-09-24 07:51 | Cardiology Progress Note ---
Assessment and Plan (1) New onset atrial fibrillation Status: Acute Assessment and plan: This is paroxysmal. Once anatomy is defined will choose best course of action Current Visit: Yes (2) Cardiomegaly Status: Chronic Current Visit: Yes (3) Diastolic dysfunction with acute on chronic heart failure Status: Acute Current Visit: Yes (4) Diabetes Status: Chronic Current Visit: No Qualifiers: Diabetes mellitus type: type 2 Diabetes mellitus complication status: without complication Diabetes mellitus longterm insulin use: without moth exterminator use Qualified Code(s): E11.9 - Type 2 diabetes mellitus without complications (5) Obesity Status: Acute Current Visit: No (6) Mobitz type 2 second degree AV block Status: Resolved Current Visit: Yes (7) Exertional dyspnea Status: Acute Current Visit: Yes Cardiology - PN: Subj Interval history: Patient states that he is breathing better. He has been in and out of atrial fibrillation. I see no additional high degree AV block at this time. He states that he is better but he remains tachypneic. His ejection fraction was surprisingly good. He has cardiomegaly by exam his ejection fraction is 50-55% and he does not have cardiomegaly by echocardiogram and true measurements. I discussed with him risk benefits and options and I think it is probably best at this time that we proceed with left heart catheterization selective coronary angiography and possible percutaneous coronary mention. He has an IV in his right radial access is only access that was obtainable by the nurses. His eyes and nose are positive but his weight is down he states that he voided a lot is morning I's and O's are +1100 cc today I think this is probably an entry error I suspect this was 1100 cc out overnight I think he really is negative fluid balance. Because of his transient AV block is not paroxysmal atrial fibrillation I think we have to know his coronary anatomy before proceeding and making decisions about revascularization versus antiarrhythmic anticoagulants etc. I discussed with the risk benefits and options with the patient he is willing to proceed. I will have called the Electronics Computer Mechanic back will anticipate left heart cath via right femoral artery approach today around 930. Exam (Progress Note) - Constitutional Vitals: Period Temp Pulse Resp BP Sys/Mckeon Pulse Ox Last 24 Hr 96.8 F-98.3 F 52-106 15-20 123-180/69-88 92-99 General appearance: over weight - Head Head exam: Present: normal inspection - Eye Eye exam: Present: EOMI - ENT ENT exam: Present: normal exam - Respiratory Respiratory exam: Present: prolonged expiratory phase. Absent: rales - Cardiovascular Cardiovascular exam: Present: irregular rhythm - GI/Abdominal GI/Abdominal exam: Present: normal bowel sounds - Extremities Exam Extremities exam: Present: normal inspection - Back Exam Back exam: Present: normal inspection - Neurological Exam Neurological exam: Present: alert, oriented X3 - Psychiatric Psychiatric exam: Present: normal affect, normal mood - Skin Skin exam: Present: normal color, warm Result/EKG - Labs CBC & BMP: 09/24/16 05:36 09/24/16 05:36 Labs: Laboratory Results - last 24 hr 09/22/16 09/23/16 09/23/16 16:37 07:33 11:24 WBC RBC Hgb Hct MCV MCH MCHC RDW Plt Count MPV Neut % (Auto) Lymph % (Auto) [place] % (Auto) Eos % (Auto) Baso % (Auto) Neut # (Auto) Lymph # (Auto) [place] # (Auto) Eos # (Auto) Baso # (Auto) Immature Gran % Nucleated RBC % Immature Gran # Nucleated RBCs # Platelet Estimate Immature Plt Fraction Morphology Comment Sodium Potassium Chloride Carbon Dioxide Anion Gap BUN Creatinine GFR Calculation BUN/Creatinine Ratio Glucose POC Glucose 103 104 Calculated Osmolality Calcium Urine Color Yellow Urine Appearance Clear Urine pH 5.0 Ur Specific [place] 1.017 Urine Protein 100 Urine Glucose (UA) Negative Urine Ketones Negative Urine Blood Negative Urine Nitrate Negative Urine Bilirubin Negative Urine Urobilinogen < 2.0 H Urine Leukocytes Negative Urine RBC <1 Urine WBC 1 Urine Mucus Occasional Ur Culture Indicated? Not indicated 09/23/16 09/23/16 09/24/16 15:46 19:46 05:36 WBC 8.9 RBC 4.75 Hgb 14.6 Hct 44.9 MCV 94.5 MCH 31 MCHC 32.5 RDW 14.6 Plt Count 143 D MPV 11.3 Neut % (Auto) 69.8 Lymph % (Auto) 14.1 L [place] % (Auto) 11.8 Eos % (Auto) 3.6 Baso % (Auto) 0.5 Neut # (Auto) 6.2 Lymph # (Auto) 1.3 L [place] # (Auto) 1.0 H Eos # (Auto) 0.3 Baso # (Auto) 0.0 Immature Gran % 0.2 Nucleated RBC % 0.0 Immature Gran # 0.02 Nucleated RBCs # 0.00 Platelet Estimate Normal Immature Plt Fraction 0.0 Morphology Comment Sodium Potassium Chloride Carbon Dioxide Anion Gap BUN Creatinine GFR Calculation BUN/Creatinine Ratio Glucose POC Glucose 105 182 H Calculated Osmolality Calcium Urine Color Urine Appearance Urine pH Ur Specific [place] Urine Protein Urine Glucose (UA) Urine Ketones Urine Blood Urine Nitrate Urine Bilirubin Urine Urobilinogen Urine Leukocytes Urine RBC Urine WBC Urine Mucus Ur Culture Indicated? 09/24/16 05:36 WBC RBC Hgb Hct MCV MCH MCHC RDW Plt Count MPV Neut % (Auto) Lymph % (Auto) [place] % (Auto) Eos % (Auto) Baso % (Auto) Neut # (Auto) Lymph # (Auto) [place] # (Auto) Eos # (Auto) Baso # (Auto) Immature Gran % Nucleated RBC % Immature Gran # Nucleated RBCs # Platelet Estimate Immature Plt Fraction Morphology Comment Sodium 145 Potassium 4.1 Chloride 104 Carbon Dioxide 35 H Anion Gap 10.1 BUN 23 H Creatinine 1.30 GFR Calculation 73 BUN/Creatinine Ratio 17.00 Glucose 105 POC Glucose Calculated Osmolality 291.7 Calcium 8.6 Urine Color Urine Appearance Urine pH Ur Specific [place] Urine Protein Urine Glucose (UA) Urine Ketones Urine Blood Urine Nitrate Urine Bilirubin Urine Urobilinogen Urine Leukocytes Urine RBC Urine WBC Urine Mucus Ur Culture Indicated? - EKG EKG results: interpreted by me EKG shows: atrial fibrillation
--- NOTE | 2016-09-24 07:55 | History and Physical Update ---
Sedation H&P Update - History and Physical H&P was reviewed, the patient examined and there: are no changes in the patients condition since last H&P was completed. - Dictation Physical: refer to H&P completed by admitting physician - Physical Exam Mental Status: alert and oriented Heart: other (A. fib irregular rate control) Lung: other (No rales prolonged expiratory phase) Abdomen: within normal limits Vitals: within normal limits - Sedation Plan for Sedation: moderate Patient Consent: Procedure disscussed with patient and patinet has consented., Risks and benefits were discussed with patient,including infection,, bleeding, injury to surrounding structures, seizure, temporary nerve, Patient understands and accepts potential risks/benefits and agrees to, proceed. ASA Class: III Airway Assessment: Class III: Soft palate, base of uvula visible
[2016-09-24] MEDS: INSULIN LISPRO 100 UNIT/ML SUBCUT SCH ×4 (07:59→21:31)
[2016-09-24] MEDS: amLODIPine 10 MG TABLET PO SCH (08:36)
[2016-09-24] MEDS: PANTOPRAZOLE 40 MG TABLET PO SCH (08:36)
[2016-09-24] MEDS: CARVEDILOL 6.25 MG TABLET PO SCH ×2 (08:36→21:31)
[2016-09-24] MEDS: QUINAPRIL 20 MG TABLET PO SCH (08:36)
[2016-09-24] MEDS ORDERED: LIDOCAINE 1% 20 ML VIAL ONE (08:46)
[2016-09-24] MEDS ORDERED: HEPARIN/NACL 0.9% 2 UNITS/ML 1,000 ML IV ONE (08:46)
[2016-09-24] MEDS ORDERED: APIXABAN 5 MG TABLET PO SCH (09:00)
[2016-09-24] MEDS ORDERED: MIDAZOLAM 2 MG/2 ML VIAL ONE (09:16)
[2016-09-24] MEDS ORDERED: fentaNYL 100 MCG/2 ML VIAL ONE (09:31)
[2016-09-24] MEDS: DOCUSATE SODIUM 100 MG CAPSULE PO SCH ×2 (09:36→21:31)
[2016-09-24] MEDS: CYANOCOBALAMIN 2500 MCG SL SCH (09:36)
[2016-09-24] MEDS: POTASSIUM CHLORIDE 20 MEQ TABLET PO SCH ×2 (09:36→21:30)
[2016-09-24] MEDS: ASCORBIC ACID 500 MG TABLET PO SCH (09:36)
--- NOTE | 2016-09-24 09:46 | Cardiac Catheterization ---
Date of Procedure:: 09/24/16 Pre-op Diagnosis: Transient Mobitz type II heart block, cardiomyopathy and new onset atrial fibrillation with decompensated heart failure Post-op diagnosis: other (Angiographically normal left dominant epicardial coronary arteries with elevated end-diastolic pressure) Procedure: Procedures: 1. Selective left and right coronary angiography 2. Left heart catheterization resting hemodynamics 3. Right femoral iliac angiography 4. Closure right femoral arteriotomy with Angio-Seal closure device After consent was taken from the patient. Taken to the catheterization lab for left heart catheterization via the femoral artery. Time out was taken and recorded. 1% lidocaine was infiltrated in the skin and subcutaneous tissue overlying the right femoral artery. Modified Seldinger technique and an 18- gauge Cook needle was used for access to the right femoral artery. An 0.35 J- wire was advanced through the needle into the central aorta under fluoroscopy. A small skin was made and a 6 Arabic sheath was placed over the wire. The sheath was aspirated and flushed. A JL46 was advanced over the wires in the left main coronary artery was selectively engaged. Multiple orthogonal views of the left system were obtained. The catheter was then exchanged over the wire. The sheath was aspirated and flushed. A JR4 catheter was advanced over the wire into the central aorta. The right coronary was selectively engaged and orthogonal views of the right coronary artery were obtained. The catheter was then exchanged over the wire, the sheath was aspirated and flushed. At this time an angled pigtail catheter was advanced across the aortic valve into the ventricle. Pressure measurements were obtained and pullback measurements were performed. The paper machine operator reviewed the films. The sheath was aspirated and flushed and a right femoral and iliac angiography was performed. The access site was amenable for closure and the area was reprepped with ChloraPrep and draped with sterile towels. The Angio-Seal closure device was used in standard technique. There was no hematoma and distal pulses were good. Total fluoroscopy time 1.2 minutes total diagnostic fluoroscopy dose 320 mGy total contrast exposure 68 cc of Omnipaque FINDINGS: LV: 174/21 LVEDP: 25-40 (atrial fibrillation) Ao:164/75 EF: Not assessed LM: Angiographically normal LAD: Angiographically normal relatively small and distal segments but no high- grade epicardial stenosis LCx: Angiographically normal, dominant RCA: Angiographically normal, nondominant RFA/LILIA: Angiographically normal and amenable to closure Assessment: 1. Atrial fibrillation 2. Decompensated heart failure with end-diastolic pressure ranging from 25-40 with atrial fibrillation 3. Angiographically normal left dominant epicardial coronary arteries PLAN: 1. Large volume diuresis 2. Right control and possible antiarrhythmics once cardioverted duration of age fibrillation unknown it has been paroxysmal while hospitalized. Hopefully with control of volume status he will revert to sinus rhythm. Continue anticoagulation as soon as access in the right femoral arteriotomy has demonstrated stability. 3. I discussed with Dr. Ramires via phone. Implants: Angio-Seal closure device right femoral arteriotomy Anesthesia: moderate conscious sedation Surgeon / Physician: Aisha Crenshaw Building Engineer: none Estimated blood loss: none Specimens: none sent Condition: stable Disposition: floor - Medications / Follow-up
[2016-09-24] MEDS: TAMSULOSIN 0.4 MG CAPSULE PO SCH ×2 (10:16→21:30)
[2016-09-24] MEDS: FUROSEMIDE 40 MG/4 ML VIAL IV SCH ×2 (10:16→15:47)
[2016-09-24] MEDS: FINASTERIDE 5 MG TABLET PO SCH (10:17)
[2016-09-24] MEDS: FOLIC ACID 1 MG TABLET PO SCH (10:17)
[2016-09-24] MEDS: MAGNESIUM OXIDE 400 MG TABLET PO SCH (21:30)
[2016-09-25] MEDS: ALBUTEROL 2.5 MG/3 ML NEB RESP TX SCH ×4 (00:45→19:56)
--- NOTE | 2016-09-25 04:35 | Cardiology Progress Note ---
Assessment and Plan (1) New onset atrial fibrillation Status: Acute Assessment and plan: This has been persistent at this point. His left atrial size is normal if continued anticoagulation hopefully once we get his volume status improved he will convert spontaneously or consider DC cardioversion at some point in the near future once he has been on anticoagulation for at least 3 weeks. For now continue diuresis and initiate Eliquis. Current Visit: Yes (2) Diastolic dysfunction with acute on chronic heart failure Status: Acute Current Visit: Yes (3) Diabetes Status: Chronic Current Visit: No Qualifiers: Diabetes mellitus type: type 2 Diabetes mellitus complication status: without complication Diabetes mellitus assisted insulin use: without oil heaterman use Qualified Code(s): E11.9 - Type 2 diabetes mellitus without complications (4) Obesity Status: Acute Current Visit: No (5) Mobitz type 2 second degree AV block Status: Resolved Current Visit: Yes (6) Diastolic heart failure Status: Acute Current Visit: Yes Qualifiers: Heart failure chronicity: acute on chronic Qualified Code(s): I50.33 - Acute on chronic diastolic (congestive) heart failure Cardiology - PN: Subj Interval history: The patient is subjectively improved and he is less dyspneic. He is lying with the head of bed approximately 30. He denies any chest pain or shortness of breath. I discussed with him the findings at the left heart catheterization yesterday specifically his elevated end-diastolic pressure of 25-40 mmHg with atrial fibrillation. He states that he is diuresed well I reviewed the I/Os and he still seems to be positive according whether charted however I know there was some 2 L that were charted as input yesterday that were output and recorded incorrectly. His fluid balance is negative according to him that he is "made a lot of water." He lost a kilo during his first 24 hours but has basically remained stable in the last 24 hours. I think we should continue with diuresis. His A. fib has been persistent. I will resume his anticoagulation. Rate control is adequate. I told him to anticipate probable discharge tomorrow. All his labs are pending at this time. Exam (Progress Note) - Constitutional Vitals: Period Temp Pulse Resp BP Sys/Mckeon Pulse Ox Last 24 Hr 96.9 F-98.0 F 55-107 16-20 110-154/65-75 90-100 General appearance: over weight - Head Head exam: Present: normal inspection - Eye Eye exam: Present: EOMI Pupils: Present: MAIA - Respiratory Respiratory exam: Present: clear to auscultation bilaterally - Cardiovascular Cardiovascular exam: Present: irregular rhythm (Right is about 90), other ( Access site right groin looks good) - GI/Abdominal GI/Abdominal exam: Present: normal bowel sounds - Extremities Exam Extremities exam: Present: normal inspection - Back Exam Back exam: Present: normal inspection - Neurological Exam Neurological exam: Present: alert, oriented X3 - Psychiatric Psychiatric exam: Present: normal affect, normal mood - Skin Skin exam: Present: normal color, warm Result/EKG - Labs CBC & BMP: 09/24/16 05:36 09/24/16 05:36 Labs: Laboratory Results - last 24 hr 09/24/16 09/24/16 09/24/16 05:36 05:36 07:27 WBC 8.9 RBC 4.75 Hgb 14.6 Hct 44.9 MCV 94.5 MCH 31 MCHC 32.5 RDW 14.6 Plt Count 143 D MPV 11.3 Neut % (Auto) 69.8 Lymph % (Auto) 14.1 L [place] % (Auto) 11.8 Eos % (Auto) 3.6 Baso % (Auto) 0.5 Neut # (Auto) 6.2 Lymph # (Auto) 1.3 L [place] # (Auto) 1.0 H Eos # (Auto) 0.3 Baso # (Auto) 0.0 Immature Gran % 0.2 Nucleated RBC % 0.0 Immature Gran # 0.02 Nucleated RBCs # 0.00 Platelet Estimate Normal Immature Plt Fraction 0.0 Morphology Comment Sodium 145 Potassium 4.1 Chloride 104 Carbon Dioxide 35 H Anion Gap 10.1 BUN 23 H Creatinine 1.30 GFR Calculation 73 BUN/Creatinine Ratio 17.00 Glucose 105 POC Glucose 111 H Calculated Osmolality 291.7 Calcium 8.6 09/24/16 09/24/16 09/24/16 11:56 16:14 20:35 WBC RBC Hgb Hct MCV MCH MCHC RDW Plt Count MPV Neut % (Auto) Lymph % (Auto) [place] % (Auto) Eos % (Auto) Baso % (Auto) Neut # (Auto) Lymph # (Auto) [place] # (Auto) Eos # (Auto) Baso # (Auto) Immature Gran % Nucleated RBC % Immature Gran # Nucleated RBCs # Platelet Estimate Immature Plt Fraction Morphology Comment Sodium Potassium Chloride Carbon Dioxide Anion Gap BUN Creatinine GFR Calculation BUN/Creatinine Ratio Glucose POC Glucose 118 H 174 H 129 H Calculated Osmolality Calcium Quality Measures - VTE Contraindication to Pharmacological VTE Prophylaxis: High Risk of Bleeding
[2016-09-25 05:16] LABS: Calcium 8.2 MG/DL (8.5-10.1); Osmolality,Calculated 295.7 MOS/KG (273-304); Potassium 4.5 MMOL/L (3.5-5.1)
[2016-09-25 06:14] LABS: Basophils % 0.2 % (0.0-0.8); Eosinophils # 0.3 10*3/uL (0.0-0.87); Eosinophils % 3.3 % (0.00-10.9); Hematocrit 43.6 VOL% (42.0-52.0); Hemoglobin 14.1 GM/DL (14.0-18.0); Immature Granulocytes % 0.4 %; Immature Granulocytes Absolute 0.04 #; Lymphocytes # 0.9 10*3/uL (1.4-4.0); Lymphocytes % 9.8 % (21.2-54.2); Mean Corpuscular HGB Conc 32.3 GM/DL (32-36); Mean Corpuscular Hemoglobin 31 PG (27-34); Mean Corpuscular Volume 95.2 FL (87-102); Mean Platelet Volume 9.8 FL (9.6-12.0); Monocytes # 1.3 10*3/uL (0.11-0.8); Monocytes % 13.7 % (1.7-12.7); Neutrophils # 6.9 10*3/uL (1.4-7.4); Neutrophils % 72.6 % (38.7-73.9); Platelet Count 203 T/CUMM (130-400); Red Blood Count 4.58 MC/CUMM (3.8-5.5); Red Cell Distribution Width 14.5 % (9.3-17.3); White Blood Count 9.5 T/CUMM (4-12)
--- NOTE | 2016-09-25 07:09 | Family Practice Progress Note ---
Family Practice - PN: Subj Interval history: Patient states he certainly feeling better and has lost another half a kilogram from yesterday. He states he is no longer dyspneic at rest and he slept well last night. He denies any chest discomfort. He continues to be in atrial fibrillation. Eliquis was restarted yesterday. Exam (Progress Note) - Constitutional Vitals: Period Temp Pulse Resp BP Sys/Mckeon Pulse Ox Last 24 Hr 96.9 F-98.7 F 55-111 16-20 110-154/65-75 90-100 Exam: Objective the well-developed gentleman is awake alert and able give good history. He appears comfortable at rest. He has no overt dyspnea. Patient's left heart cath results are noted. Cardiovascular: Heart rates irregular and appears to be in atrial fibrillation. I hear no murmurs or gallops. Respiratory: He has clearing of his bibasilar rales. I hear no wheezing this morning. Abdomen: Abdomen soft and nontender to palpation. Extremities: He has no edema. Results - Labs CBC & BMP: 09/25/16 06:07 09/25/16 04:15 Lab Results: I have reviewed the past 24 hour labs Assessment and Plan (1) Mobitz type 2 second degree AV block Status: Resolved Assessment and plan: 09/22/2016: Cardiology will be consulted. Cardiac isoenzymes and electrolytes have been ordered. 09/15/2016: Patient appears to be in atrial fib/flutter this morning Current Visit: Yes (2) Exertional dyspnea Status: Acute Assessment and plan: 09/22/2016: Suspect patient has some element of CHF. Patient did have an EKG on 09/12/2016 which showed atrial fibrillation. 09/23/2016: Echocardiogram report is pending, patient's TSH and other laboratory studies are unremarkable. Cardiac isoenzymes will be ordered. 09/24/2016: Laboratory studies are unremarkable. Echocardiogram showed preserved ejection fraction. I think the majority of his difficulties are related to his atrial fibrillation. Cardiology is evaluating him for possible diagnostic left heart catheterization 09/25/2016: Patient had no evidence of coronary artery stenosis on his left heart catheterization. Current Visit: Yes (3) New onset atrial fibrillation Status: Acute Assessment and plan: 09/25/2016: Atrial fibrillation persists with controlled rate. Patient presently on Eliquis. Current Visit: Yes Quality Measures - VTE Contraindication to Pharmacological VTE Prophylaxis: High Risk of Bleeding
--- NOTE | 2016-09-25 07:53 | EKG Report ---
Stationary ECG Study [facility] Test Date: 09/25/2016 7:51:52 AM Pat Name: LORENZO GUERRA Department: Room: 270 Gender: M Computer Aided Design Drafter: WENDY : 1935 Requested by: Julien Cueva Order Number: [id number] Jeramy MD: VANESSA OLEARY Intervals [place] Rate: 89 P: 999 [place]: 0 QRS: 29 QRSD: 102 T: 67 QT: 381 QTc: 427 Interpretive Statements ATRIAL FIBRILLATION NON-SPECIFIC ST-T CHANGES LOW VOLTAGE TRACING Electronically Signed On 09-25-16 17:05:50 CDT by VANESSA OLEARY [email or web address]
[2016-09-25] MEDS: POTASSIUM CHLORIDE 20 MEQ TABLET PO SCH ×2 (08:19→21:23)
[2016-09-25] MEDS: ASCORBIC ACID 500 MG TABLET PO SCH (08:19)
[2016-09-25] MEDS: CARVEDILOL 6.25 MG TABLET PO SCH ×2 (08:19→21:23)
[2016-09-25] MEDS: amLODIPine 10 MG TABLET PO SCH (08:19)
[2016-09-25] MEDS: INSULIN LISPRO 100 UNIT/ML SUBCUT SCH ×4 (08:20→21:23)
[2016-09-25] MEDS: FOLIC ACID 1 MG TABLET PO SCH (08:20)
[2016-09-25] MEDS: TAMSULOSIN 0.4 MG CAPSULE PO SCH ×2 (08:20→21:22)
[2016-09-25] MEDS: FINASTERIDE 5 MG TABLET PO SCH (08:20)
[2016-09-25] MEDS: MAGNESIUM OXIDE 400 MG TABLET PO SCH ×2 (08:20→21:23)
[2016-09-25] MEDS: APIXABAN 5 MG TABLET PO SCH ×2 (08:20→21:23)
[2016-09-25] MEDS: DOCUSATE SODIUM 100 MG CAPSULE PO SCH ×2 (08:20→21:23)
[2016-09-25] MEDS: FUROSEMIDE 40 MG/4 ML VIAL IV SCH ×2 (08:20→15:54)
[2016-09-25] MEDS: PANTOPRAZOLE 40 MG TABLET PO SCH (08:20)
[2016-09-25] MEDS: QUINAPRIL 20 MG TABLET PO SCH (08:22)
[2016-09-25] MEDS: CYANOCOBALAMIN 2500 MCG SL SCH (10:06)
[2016-09-26] MEDS: ALBUTEROL 2.5 MG/3 ML NEB RESP TX SCH ×2 (00:15→06:49)
--- NOTE | 2016-09-26 07:25 | Discharge Summary ---
Hospital Course - Hospital Course Hospital Course: Patient's 81-year-old gentleman presents to the office with increasing shortness of breath and dyspnea on exertion. Patient found to have atrial fibrillation with rapid ventricular response. Patient was admitted my services and cardiology was consulted. Patient was seen Dr. Aisha Crenshaw and had echocardiogram that showed a preserved EF. Patient underwent left heart catheterization which showed no evidence of coronary artery disease. Patient symptomatically improved with diuresis and was up walking in the halls the day before discharge. He was started on Eliquis and will be followed by cardiology for possible cardioversion in the near future. Diagnosis - Discharge Diagnosis (1) Mobitz type 2 second degree AV block Status: Resolved (2) Exertional dyspnea Status: Acute (3) New onset atrial fibrillation Status: Acute Discharge Plan - Discharge Data Disposition: Disch To Home/Self Care Condition at Discharge: Stable Discharge Diet: advance to your usual diet Activity: resume usual activities as tolerated Hygiene: no restrictions Weight Bearing at Discharge: full weight bearing Driving: no restrictions Contact your physician if you experience:: fever over 101, Shortness of breath - Discharge Medications New Albuterol Neb [Proventil Neb] 2.5 mg RESP TX RT Q4H PRN #120 PRN Reason: Shortness Of Breath/Wheezing Apixaban [Eliquis] 5 mg PO BID #60 tablet Furosemide Tab [Lasix Tab] 40 mg PO DAILY #30 tablet Magnesium Oxide 400 mg PO BID #60 tablet Potassium Chloride Cap/Tab [K Dur] 20 meq PO BID #60 tablet Continue Cyanocobalamin (Vitamin B-12) [Vitamin B-12] 2,500 mcg SL DAILY Ascorbic Acid Tab [Vitamin C Tab] 500 mg PO DAILY amLODIPine [Norvasc] 10 mg PO DAILY Quinapril HCl 20 mg PO DAILY metFORMIN [Glucophage] 500 mg PO DAILY W/BREAKFAST Folic Acid Tab 1 mg PO DAILY Tamsulosin [Flomax] 0.4 mg PO BID Finasteride [Proscar] 5 mg PO DAILY Carvedilol [Coreg] 6.25 mg PO BID Discontinued predniSONE TAB [PredniSONE] 10 mg PO DAILY #3 tablet Levofloxacin Tab [Levaquin Tab] 750 mg PO DAILY #7 tablet - Follow Up or Referral Follow Up: Maico Ramires MD [Primary Care Provider] - 2 Weeks - Forms/Instructions Exam - Constitutional Vitals: Period Temp Pulse Resp BP Sys/Mckeon Pulse Ox Last 24 Hr 97.7 F-99.1 F 60-107 16-18 102-149/60-81 90-99 Exam: Objective the well-developed gentleman is awake alert and able give good history. He appears comfortable at rest. He has no overt dyspnea. Patient states he is ready to go home this morning. Cardiovascular: Heart rates irregular and appears to be in atrial fibrillation. I hear no murmurs or gallops. Respiratory: He has clearing of his bibasilar rales. I hear no wheezing this morning. Abdomen: Abdomen soft and nontender to palpation. Extremities: He has no edema. Discharge Results Procedures and tests throughout hospitalization: Pending Orders 09/24/16 08:31 CL heart Routine Labs on day of discharge: Labs from last 24 hours 09/25/16 09/25/16 09/25/16 20:50 15:54 12:22 POC Glucose 218 H 121 H 112 H 09/25/16 07:33 POC Glucose 118 H Blood sugars are adequately controlled DS: Provider Date of admission: 09/22/16 16:34 Primary care physician: Maico Ramires MD Attending physician on admission: Maico Ramires MD Consults: 09/22/16 16:35 Consult to Case Mgmt/Social Srvs [CONS] Routine Reason for Case Mgmt/Social Srvs: Discharge Planning 09/22/16 16:38 Consult to Physician [CONS] Routine Comment: Consulting Provider: Cardiology - [facility] Discharging clinician: Maico Ramires MD Expected date of discharge: 09/26/16
[2016-09-26 07:47] VITALS: BP 131/79
[2016-09-26] MEDS: INSULIN LISPRO 100 UNIT/ML SUBCUT SCH (09:09)
[2016-09-26] MEDS: TAMSULOSIN 0.4 MG CAPSULE PO SCH (09:11)
[2016-09-26] MEDS: FOLIC ACID 1 MG TABLET PO SCH (09:11)
[2016-09-26] MEDS: DOCUSATE SODIUM 100 MG CAPSULE PO SCH (09:11)
[2016-09-26] MEDS: CARVEDILOL 6.25 MG TABLET PO SCH (09:11)
[2016-09-26] MEDS: FINASTERIDE 5 MG TABLET PO SCH (09:11)
[2016-09-26] MEDS: POTASSIUM CHLORIDE 20 MEQ TABLET PO SCH (09:11)
[2016-09-26] MEDS: PANTOPRAZOLE 40 MG TABLET PO SCH (09:11)
[2016-09-26] MEDS: amLODIPine 10 MG TABLET PO SCH (09:11)
[2016-09-26] MEDS: ASCORBIC ACID 500 MG TABLET PO SCH (09:11)
[2016-09-26] MEDS: APIXABAN 5 MG TABLET PO SCH (09:11)
[2016-09-26] MEDS: MAGNESIUM OXIDE 400 MG TABLET PO SCH (09:11)
[2016-09-26] MEDS: FUROSEMIDE 40 MG/4 ML VIAL IV SCH (09:12)
[2016-09-26] MEDS: CYANOCOBALAMIN 2500 MCG SL SCH (09:14)
[2016-09-26] MEDS: QUINAPRIL 20 MG TABLET PO SCH (09:16)
== END 2016-09-26 11:55 | disposition home or self-care (01) | DRG 286 ==
LOC: N.TELES → OBSVTOIN 17:46
PROVIDERS: ADMIT Family Medicine; ATTEND Family Medicine
PROC: CLCCHCL (ICD-10-PCS; 2016-09-24 09:45)

== ENCOUNTER 2018-06-26 11:51 | Observation (INO) ==
[2018-06-26] MEDS ORDERED: ASPIRIN 325 MG TABLET PO STA (12:54)
[2018-06-26] MEDS ORDERED: ENOXAPARIN 100 MG/ML SYRINGE SUBCUT STA (12:54)
[2018-06-26 13:00] LABS: Basophils % 0.4 % (0.0-0.8); Eosinophils # 0.5 10*3/uL (0.0-0.87); Hematocrit 45.1 VOL% (42.0-52.0); Hemoglobin 14.4 GM/DL (14.0-18.0); Immature Granulocytes % 0.3 %; Immature Granulocytes Absolute 0.03 #; Lymphocytes # 1.1 10*3/uL (1.4-4.0); Lymphocytes % 12.3 % (21.2-54.2); Mean Corpuscular HGB Conc 31.9 GM/DL (32-36); Mean Corpuscular Volume 93.2 FL (87-102); Monocytes % 11.8 % (1.7-12.7); Neutrophils % 70.2 % (38.7-73.9); Platelet Count 220 T/CUMM (130-400); Red Blood Count 4.84 MC/CUMM (3.8-5.5); Red Cell Distribution Width 14.9 % (9.3-17.3); White Blood Count 9.2 T/CUMM (4-12)
[2018-06-26 13:05] LABS: INR 1.1; PT Patient Result 11.4 SECS
[2018-06-26 13:14] LABS: Albumin 3.4 G/DL (3.4-5.0); Bilirubin,Total 0.6 MG/DL (0.2-1.0); Calcium 8.4 MG/DL (8.5-10.1); Osmolality,Calculated 287.1 MOS/KG (273-304); Total Protein 6.6 G/DL (6.4-8.3)
[2018-06-26] MEDS ORDERED: ONDANSETRON 4 MG/2 ML VIAL IV PRN (14:14)
[2018-06-26] MEDS ORDERED: ACETAMINOPHEN 325 MG TABLET PO PRN (14:14)
[2018-06-26] MEDS ORDERED: DEXTROSE 50% 25 GM/50 ML SYRINGE IV PRN (18:21)
[2018-06-26] MEDS ORDERED: NITROGLYCERIN SL 0.4 MG TABLET SL STA (18:21)
[2018-06-26] MEDS ORDERED: hydrALAZINE 20 MG/1 ML VIAL IV PRN (18:21)
[2018-06-26] MEDS ORDERED: metFORMIN 500 MG TABLET PO SCH (18:21)
[2018-06-26] MEDS ORDERED: GLUCAGON 1 MG VIAL IM PRN (18:21)
[2018-06-26] MEDS ORDERED: ALBUTEROL 2.5 MG/3 ML NEB RESP TX PRN (18:21)
[2018-06-26 19:29] LABS: Troponin I 0.017 NG/ML (0.00-0.045)
[2018-06-26] MEDS: CARVEDILOL 25 MG TABLET PO SCH (21:03)
[2018-06-26] MEDS: POTASSIUM CHLORIDE 8 MEQ CAPSULE PO SCH (21:03)
[2018-06-26] MEDS: MAGNESIUM OXIDE 400 MG TABLET PO SCH (21:03)
[2018-06-26] MEDS: DOCUSATE SODIUM 100 MG CAPSULE PO SCH (21:03)
[2018-06-26] MEDS: DABIGATRAN 150 MG CAPSULE PO SCH (21:08)
[2018-06-26] MEDS: INSULIN LISPRO 100 UNIT/ML SUBCUT SCH (21:54)
[2018-06-27 06:09] LABS: Troponin I < 0.015 NG/ML (0.00-0.045)
[2018-06-27] MEDS: INSULIN LISPRO 100 UNIT/ML SUBCUT SCH (08:07)
[2018-06-27 08:12] VITALS: BP 174/74
[2018-06-27] MEDS ORDERED: OXYBUTYNIN XL 10 MG TABLET PO SCH (09:00)
[2018-06-27] MEDS ORDERED: PANTOPRAZOLE 40 MG TABLET PO SCH (09:00)
[2018-06-27] MEDS ORDERED: FUROSEMIDE 40 MG TABLET PO SCH (09:00)
[2018-06-27] MEDS ORDERED: FINASTERIDE 5 MG TABLET PO SCH (09:00)
[2018-06-27] MEDS ORDERED: FLUTICASONE 50 MCG NASAL SPRAY 16 GM BOTTLE BOTH NARES SCH (09:00)
[2018-06-27] MEDS ORDERED: NON-FORMULARY MEDICATION (Cyanocobalamin (Vitamin B-12) [Vitamin B-12] 2,500 MCG) SL SCH (09:00)
[2018-06-27] MEDS ORDERED: QUINAPRIL 20 MG TABLET PO SCH (09:00)
[2018-06-27] MEDS ORDERED: QUINAPRIL 5 MG TABLET PO SCH ×2 (09:00)
[2018-06-27] MEDS ORDERED: ASCORBIC ACID 500 MG TABLET PO SCH (09:00)
[2018-06-27] MEDS: CARVEDILOL 25 MG TABLET PO SCH (09:03)
[2018-06-27] MEDS: DOCUSATE SODIUM 100 MG CAPSULE PO SCH (09:03)
[2018-06-27] MEDS: POTASSIUM CHLORIDE 8 MEQ CAPSULE PO SCH (09:04)
[2018-06-27] MEDS: DABIGATRAN 150 MG CAPSULE PO SCH (09:04)
[2018-06-27] MEDS: MAGNESIUM OXIDE 400 MG TABLET PO SCH (09:04)
== END 2018-06-27 09:52 | disposition home or self-care (01) ==
LOC: N.ED 11:51 → N.EDINP 11:51 → N.TELES 18:20
PROVIDERS: ADMIT Family Medicine; ATTEND Family Medicine

== ENCOUNTER 2019-06-02 20:50 | Inpatient (IN) ==
[2019-06-02] MEDS ORDERED: ACETAMINOPHEN 325 MG TABLET PO ONE (21:15)
[2019-06-02] MEDS ORDERED: SODIUM CHLORIDE 0.9% 500 ML IV STA (21:15)
[2019-06-02 21:40] LABS: Basophils % 0.2 % (0.0-0.8); Hematocrit 42.4 VOL% (42.0-52.0); Hemoglobin 13.3 GM/DL (14.0-18.0); Immature Granulocytes % 0.9 %; Immature Granulocytes Absolute 0.21 #; Lymphocytes # 0.2 10*3/uL (1.4-4.0); Lymphocytes % 0.9 % (21.2-54.2); Mean Corpuscular HGB Conc 31.4 GM/DL (32-36); Mean Corpuscular Volume 89.5 FL (87-102); Mean Platelet Volume 9.5 FL (9.6-12.0); Monocytes % 6.5 % (1.7-12.7); Neutrophils % 91.5 % (38.7-73.9); Platelet Count 264 T/CUMM (130-400); Red Blood Count 4.74 MC/CUMM (3.8-5.5); Red Cell Distribution Width 15.6 % (9.3-17.3); White Blood Count 22.2 T/CUMM (4-12)
[2019-06-02 21:51] LABS: INR 3.1; PT Patient Result 31.2 SECS (9.8-11.9)
[2019-06-02] MEDS ORDERED: cefTRIAXone 1,000 MG in SODIUM CHLORIDE 0.9% 100 ML IV STA (21:55)
[2019-06-02] MEDS ORDERED: AZITHROMYCIN INJ 500 MG in SODIUM CHLORIDE 0.9% 250 ML IV STA (21:55)
[2019-06-02 22:06] LABS: Alanine Aminotransferase 108 U/L (16-61); Albumin 2.7 G/DL (3.4-5.0); Alkaline Phosphatase 286 U/L (45-117); Aspartate Amino Transferase 115 U/L (0-37); Blood Urea Nitrogen 22 MG/DL (7-18); Calcium 7.7 MG/DL (8.5-10.1); Estimated Glom Filtration Rate 63 ML/MIN; Glucose 185 MG/DL (74-106); Total Protein 5.5 G/DL (6.4-8.3); Troponin I 0.018 NG/ML (0.00-0.045)
[2019-06-02 22:07] LABS: Band Neutrophils 1 % (0-10); Lymphocytes 4 % (20-55); Platelet Estimate Adequate; Segmented Neutrophils 89 % (50-85); Total Cells Counted 100
[2019-06-02] MEDS ORDERED: PROMETHAZINE 25 MG/1 ML VIAL IM PRN (23:26)
[2019-06-02] MEDS ORDERED: ONDANSETRON 4 MG/2 ML VIAL IV PRN (23:26)
[2019-06-02] MEDS ORDERED: ACETAMINOPHEN 325 MG TABLET PO PRN (23:26)
[2019-06-03 04:52] LABS: Basophils % 0.1 % (0.0-0.8); Hematocrit 42.5 VOL% (42.0-52.0); Hemoglobin 13.1 GM/DL (14.0-18.0); Immature Granulocytes % 0.7 %; Immature Granulocytes Absolute 0.16 #; Lymphocytes # 0.4 10*3/uL (1.4-4.0); Lymphocytes % 1.8 % (21.2-54.2); Mean Corpuscular HGB Conc 30.8 GM/DL (32-36); Neutrophils % 92.4 % (38.7-73.9); Platelet Count 281 T/CUMM (130-400); Red Blood Count 4.62 MC/CUMM (3.8-5.5); Red Cell Distribution Width 15.8 % (9.3-17.3); White Blood Count 23.2 T/CUMM (4-12)
[2019-06-03 05:13] LABS: Hypochromasia 1+; Lymphocytes 4 % (20-55); Ovalocytes Slight; Platelet Estimate Adequate; Segmented Neutrophils 90 % (50-85); Total Cells Counted 100
[2019-06-03 05:55] LABS: Albumin 2.8 G/DL (3.4-5.0); Bilirubin,Total 3.4 MG/DL (0.2-1.0); Calcium 8.2 MG/DL (8.5-10.1); Osmolality,Calculated 287.5 MOS/KG (273-304); Total Protein 6.1 G/DL (6.4-8.3)
[2019-06-03] MEDS ORDERED: ALBUTEROL 2.5 MG/3 ML NEB RESP TX PRN (08:52)
[2019-06-03] MEDS: PANTOPRAZOLE 40 MG TABLET PO SCH (09:05)
[2019-06-03] MEDS: DOCUSATE SODIUM 100 MG CAPSULE PO SCH ×2 (09:06→20:05)
[2019-06-03] MEDS: FINASTERIDE 5 MG TABLET PO SCH (09:06)
[2019-06-03] MEDS: FUROSEMIDE 40 MG TABLET PO SCH (09:06)
[2019-06-03] MEDS: carvediloL 25 MG TABLET PO SCH ×2 (09:06→16:53)
[2019-06-03] MEDS: QUINAPRIL 20 MG TABLET PO SCH (10:20)
[2019-06-03] MEDS: ENOXAPARIN 40 MG/0.4 ML SYRINGE SUBCUT SCH (10:20)
[2019-06-03] MEDS: MAGNESIUM OXIDE 400 MG TABLET PO SCH (20:05)
[2019-06-04] MEDS: PANTOPRAZOLE 40 MG TABLET PO SCH (08:03)
[2019-06-04] MEDS: FINASTERIDE 5 MG TABLET PO SCH (08:03)
[2019-06-04] MEDS: MAGNESIUM OXIDE 400 MG TABLET PO SCH ×2 (08:03→20:43)
[2019-06-04] MEDS: FUROSEMIDE 40 MG TABLET PO SCH (08:03)
[2019-06-04] MEDS: QUINAPRIL 20 MG TABLET PO SCH ×2 (08:03→08:39)
[2019-06-04] MEDS: carvediloL 25 MG TABLET PO SCH ×2 (08:03→17:14)
[2019-06-04] MEDS: ENOXAPARIN 40 MG/0.4 ML SYRINGE SUBCUT SCH (08:04)
[2019-06-04] MEDS: DOCUSATE SODIUM 100 MG CAPSULE PO SCH ×2 (08:04→20:40)
[2019-06-04] MEDS ORDERED: AZITHROMYCIN INJ 500 MG in SODIUM CHLORIDE 0.9% 250 ML IV SCH (08:30)
[2019-06-04] MEDS: POTASSIUM CHLORIDE 8 MEQ CAPSULE PO SCH ×2 (09:47→20:43)
[2019-06-04] MEDS: cefTRIAXone 1,000 MG in SYRINGE 1 EACH IV SCH (09:47)
[2019-06-04 09:48] LABS: INR 1.7; PT Patient Result 17.3 SECS (9.8-11.9)
[2019-06-04] MEDS: AZITHROMYCIN 250 MG TABLET PO SCH (09:48)
[2019-06-04] MEDS: SUCRALFATE 1 GM TABLET PO SCH ×3 (11:59→20:39)
[2019-06-04] MEDS ORDERED: metFORMIN 500 MG TABLET PO SCH (17:00)
[2019-06-04] MEDS ORDERED: WARFARIN 5 MG TABLET PO SCH ×2 (21:00)
[2019-06-05] MEDS: PANTOPRAZOLE 40 MG TABLET PO SCH (08:36)
[2019-06-05] MEDS: FINASTERIDE 5 MG TABLET PO SCH (08:36)
[2019-06-05] MEDS: QUINAPRIL 20 MG TABLET PO SCH (08:36)
[2019-06-05] MEDS: AZITHROMYCIN 250 MG TABLET PO SCH (08:36)
[2019-06-05] MEDS: MAGNESIUM OXIDE 400 MG TABLET PO SCH (08:36)
[2019-06-05] MEDS: carvediloL 25 MG TABLET PO SCH (08:36)
[2019-06-05] MEDS: SUCRALFATE 1 GM TABLET PO SCH (08:36)
[2019-06-05] MEDS: POTASSIUM CHLORIDE 8 MEQ CAPSULE PO SCH (08:36)
[2019-06-05 09:26] VITALS: BP 166/90
[2019-06-05] MEDS: ENOXAPARIN 40 MG/0.4 ML SYRINGE SUBCUT SCH (09:32)
[2019-06-05] MEDS: FUROSEMIDE 40 MG TABLET PO SCH (09:32)
[2019-06-05] MEDS: DOCUSATE SODIUM 100 MG CAPSULE PO SCH (09:32)
[2019-06-05] MEDS: cefTRIAXone 1,000 MG in SYRINGE 1 EACH IV SCH (09:36)
[2019-06-07] MEDS ORDERED: WARFARIN 5 MG TABLET PO SCH (21:00)
== END 2019-06-05 10:20 | disposition home or self-care (01) | DRG 194 ==
LOC: EDBD → EDUNIT# → N.ED 20:50 → N.EDINP 20:50 → N.2W 23:53
PROVIDERS: ADMIT Family Medicine; ATTEND Family Medicine

== ENCOUNTER 2019-08-03 18:42 | Inpatient (IN) ==
[2019-08-03] MEDS ORDERED: LACTATED RINGERS 500 ML IV ONE (19:00)
[2019-08-03 19:22] LABS: Basophils % 0.2 % (0.0-0.8); Eosinophils % 0.1 % (0.00-10.9); Hematocrit 43.6 VOL% (42.0-52.0); Hemoglobin 13.4 GM/DL (14.0-18.0); Immature Granulocytes % 0.9 %; Immature Granulocytes Absolute 0.15 #; Lymphocytes # 0.2 10*3/uL (1.4-4.0); Lymphocytes % 1.1 % (21.2-54.2); Mean Corpuscular HGB Conc 30.7 GM/DL (32-36); Mean Corpuscular Volume 92.8 FL (87-102); Mean Platelet Volume 9.8 FL (9.6-12.0); Monocytes % 7.9 % (1.7-12.7); Neutrophils % 89.8 % (38.7-73.9); Platelet Count 220 T/CUMM (130-400); Red Cell Distribution Width 17.5 % (9.3-17.3); White Blood Count 16.1 T/CUMM (4-12)
[2019-08-03 19:32] LABS: INR 2.2
[2019-08-03 19:33] LABS: PT Patient Result 22.9 SECS (9.8-11.9)
[2019-08-03] MEDS ORDERED: cefTRIAXone 1,000 MG in SODIUM CHLORIDE 0.9% 100 ML IV STA (19:36)
[2019-08-03] MEDS ORDERED: LEVOFLOXACIN INJ 500 MG in PREMIX 1 EACH IV STA (19:36)
[2019-08-03 19:45] LABS: Alanine Aminotransferase 58 U/L (16-61); Albumin 2.8 G/DL (3.4-5.0); Alkaline Phosphatase 184 U/L (45-117); Aspartate Amino Transferase 66 U/L (0-37); Blood Urea Nitrogen 26 MG/DL (7-18); Estimated Glom Filtration Rate 58 ML/MIN; Ferritin 167.8 ng/ml (26-388); Glucose 157 MG/DL (74-106); Total Protein 5.7 G/DL (6.4-8.3)
[2019-08-03] MEDS ORDERED: GLUCAGON 1 MG VIAL IM PRN (20:11)
[2019-08-03] MEDS ORDERED: ONDANSETRON 4 MG/2 ML VIAL IV PRN (20:11)
[2019-08-03] MEDS ORDERED: DEXTROSE 10% 250 ML BAG IV PRN (20:11)
[2019-08-03] MEDS ORDERED: ALBUTEROL 2.5 MG/3 ML NEB RESP TX PRN (20:13)
[2019-08-03] MEDS ORDERED: WARFARIN 5 MG TABLET PO ONE (20:30)
[2019-08-03 20:46] LABS: Band Neutrophils 1 % (0-10); Platelet Estimate Normal; Segmented Neutrophils 94 % (50-85); Total Cells Counted 100
[2019-08-03 20:47] LABS: Macrocytosis Slight; Poikilocytosis 1+
[2019-08-03] MEDS ORDERED: LIDOCAINE 1% 50 ML VIAL ONE (20:50)
[2019-08-03 22:35] LABS: Apearance,Urine Slightly Hazy (Clear); Bilirubin,Urine Small mg/dL (Negative); Blood, Urine Negative (Negative); Glucose,Urine (UA) Negative (Negative); Hyaline Casts,Urine 23 /LPF (0-3); Ketones,Urine Negative (Negative); Mucus,Urine Occasional /LPF (Occasional); Nitrite,Urine Negative (Negative); Protein,Urine Negative; RBC,Urine 4 /HPF (0-4); Squamous Epithelial Cell,Urine Occasional /HPF (0-10); Urine Color Amber (Yellow); Urine Specific Gravity 1.019 (1.001-1.035); WBC,Urine 6 /HPF (0-6)
[2019-08-03] MEDS: DOCUSATE SODIUM 100 MG CAPSULE PO SCH (23:20)
[2019-08-03] MEDS: ACETAMINOPHEN 325 MG TABLET PO PRN (23:20)
[2019-08-03] MEDS: LACTATED RINGERS 1,000 ML IV SCH (23:24)
[2019-08-04 06:00] LABS: INR 4.9
[2019-08-04 06:02] LABS: PT Patient Result 47.8 SECS (9.8-11.9)
[2019-08-04 06:21] LABS: Albumin 2.6 G/DL (3.4-5.0); Osmolality,Calculated 292.3 MOS/KG (273-304); Total Protein 5.9 G/DL (6.4-8.3)
[2019-08-04] MEDS: LACTATED RINGERS 1,000 ML IV SCH ×2 (08:25→19:30)
[2019-08-04] MEDS: PANTOPRAZOLE 40 MG TABLET PO SCH (09:24)
[2019-08-04] MEDS: DOCUSATE SODIUM 100 MG CAPSULE PO SCH ×2 (09:25→23:05)
[2019-08-04] MEDS: FINASTERIDE 5 MG TABLET PO SCH (09:25)
[2019-08-04] MEDS: metFORMIN 500 MG TABLET PO SCH (16:50)
[2019-08-04] MEDS: ACETAMINOPHEN 325 MG TABLET PO PRN (21:50)
[2019-08-05] MEDS: LEVOFLOXACIN INJ 500 MG in PREMIX 1 EACH IV SCH ×2 (00:15→21:16)
[2019-08-05] MEDS ORDERED: FUROSEMIDE 40 MG/4 ML VIAL IV ONE (06:08)
[2019-08-05 06:09] LABS: Basophils % 0.2 % (0.0-0.8); Eosinophils % 0.1 % (0.00-10.9); Immature Granulocytes % 0.8 %; Immature Granulocytes Absolute 0.14 #; Lymphocytes # 0.9 10*3/uL (1.4-4.0); Monocytes % 8.1 % (1.7-12.7); Neutrophils % 85.8 % (38.7-73.9); Platelet Count 271 T/CUMM (130-400); Red Blood Count 5.15 MC/CUMM (3.8-5.5); Red Cell Distribution Width 18.5 % (9.3-17.3); White Blood Count 18.6 T/CUMM (4-12)
[2019-08-05 06:20] LABS: INR 2.5; PT Patient Result 25.6 SECS (9.8-11.9)
[2019-08-05] MEDS ORDERED: LACTATED RINGERS 1,000 ML IV SCH (06:30)
[2019-08-05 06:34] LABS: Bilirubin,Total 2.3 MG/DL (0.2-1.0); Calcium 8.5 MG/DL (8.5-10.1); Osmolality,Calculated 282.7 MOS/KG (273-304); Total Protein 6.9 G/DL (6.4-8.3)
[2019-08-05] MEDS: ALBUTEROL INHALER 18 GM INH SCH ×5 (06:35→22:43)
[2019-08-05 06:42] LABS: Hemoglobin 14.7 GM/DL (14.0-18.0)
[2019-08-05 07:09] LABS: Burr Cells Slight; Hypochromasia Slight; Lymphocytes 11 % (20-55); Ovalocytes Slight; Platelet Estimate Adequate; Segmented Neutrophils 76 % (50-85); Total Cells Counted 100
[2019-08-05] MEDS: FINASTERIDE 5 MG TABLET PO SCH (08:30)
[2019-08-05] MEDS: DOCUSATE SODIUM 100 MG CAPSULE PO SCH ×2 (08:30→21:15)
[2019-08-05] MEDS: PANTOPRAZOLE 40 MG TABLET PO SCH (08:30)
[2019-08-05 08:44] LABS: Ferritin 234.1 ng/ml (26-388)
[2019-08-05] MEDS: FUROSEMIDE 40 MG/4 ML VIAL IV SCH ×2 (10:26→16:42)
[2019-08-05] MEDS: metFORMIN 500 MG TABLET PO SCH (16:48)
[2019-08-05] MEDS ORDERED: WARFARIN 7.5 MG TABLET PO SCH (17:00)
[2019-08-05] MEDS: LACTATED RINGERS 1,000 ML IV SCH (17:24)
[2019-08-05] MEDS: carvediloL 25 MG TABLET PO SCH (21:15)
[2019-08-06] MEDS: ALBUTEROL INHALER 18 GM INH SCH ×6 (03:27→23:46)
[2019-08-06 05:57] LABS: INR 2.4
[2019-08-06 05:58] LABS: PT Patient Result 24.9 SECS (9.8-11.9)
[2019-08-06] MEDS: FINASTERIDE 5 MG TABLET PO SCH (08:31)
[2019-08-06] MEDS: FUROSEMIDE 40 MG/4 ML VIAL IV SCH ×2 (08:31→17:00)
[2019-08-06] MEDS: DOCUSATE SODIUM 100 MG CAPSULE PO SCH ×2 (08:31→20:29)
[2019-08-06] MEDS: ENALAPRIL 20 MG TABLET PO SCH (08:31)
[2019-08-06] MEDS: PANTOPRAZOLE 40 MG TABLET PO SCH (08:32)
[2019-08-06] MEDS: carvediloL 25 MG TABLET PO SCH ×2 (08:32→20:29)
[2019-08-06] MEDS: WARFARIN 5 MG TABLET PO SCH (17:00)
[2019-08-06] MEDS: metFORMIN 500 MG TABLET PO SCH (17:00)
[2019-08-06] MEDS: LEVOFLOXACIN INJ 500 MG in PREMIX 1 EACH IV SCH (20:29)
[2019-08-07] MEDS: ALBUTEROL INHALER 18 GM INH SCH ×6 (03:19→23:45)
[2019-08-07] MEDS: carvediloL 25 MG TABLET PO SCH ×3 (05:50→20:30)
[2019-08-07 06:06] LABS: INR 2.3; PT Patient Result 23.5 SECS (9.8-11.9)
[2019-08-07] MEDS: ENALAPRIL 20 MG TABLET PO SCH (09:08)
[2019-08-07] MEDS: PANTOPRAZOLE 40 MG TABLET PO SCH (09:08)
[2019-08-07] MEDS: DOCUSATE SODIUM 100 MG CAPSULE PO SCH ×2 (09:09→20:30)
[2019-08-07] MEDS: FINASTERIDE 5 MG TABLET PO SCH (09:09)
[2019-08-07] MEDS: FUROSEMIDE 40 MG/4 ML VIAL IV SCH (09:48)
[2019-08-07] MEDS: WARFARIN 5 MG TABLET PO SCH (16:14)
[2019-08-07] MEDS: FUROSEMIDE 40 MG TABLET PO SCH (16:14)
[2019-08-07] MEDS: metFORMIN 500 MG TABLET PO SCH (16:14)
[2019-08-07] MEDS: LEVOFLOXACIN INJ 500 MG in PREMIX 1 EACH IV SCH (20:30)
[2019-08-08] MEDS: ALBUTEROL INHALER 18 GM INH SCH ×2 (03:56→06:48)
[2019-08-08 04:59] LABS: Basophils % 0.1 % (0.0-0.8); Eosinophils # 0.2 10*3/uL (0.0-0.87); Hematocrit 44.7 VOL% (42.0-52.0); Hemoglobin 13.7 GM/DL (14.0-18.0); Immature Granulocytes % 0.4 %; Immature Granulocytes Absolute 0.04 #; Lymphocytes % 10.1 % (21.2-54.2); Mean Corpuscular HGB Conc 30.6 GM/DL (32-36); Mean Corpuscular Volume 91.2 FL (87-102); Mean Platelet Volume 10.2 FL (9.6-12.0); Monocytes % 12.5 % (1.7-12.7); Neutrophils % 74.9 % (38.7-73.9); Platelet Count 218 T/CUMM (130-400); Red Cell Distribution Width 17.2 % (9.3-17.3); White Blood Count 10.3 T/CUMM (4-12)
[2019-08-08 05:07] LABS: INR 1.5; PT Patient Result 15.6 SECS (9.8-11.9)
[2019-08-08 05:53] LABS: Albumin 2.7 G/DL (3.4-5.0); Bilirubin,Total 1.1 MG/DL (0.2-1.0); Calcium 8.2 MG/DL (8.5-10.1); Osmolality,Calculated 290.1 MOS/KG (273-304); Total Protein 6.4 G/DL (6.4-8.3)
[2019-08-08 08:07] VITALS: BP 140/73
[2019-08-08] MEDS: FUROSEMIDE 40 MG TABLET PO SCH (08:16)
[2019-08-08] MEDS: PANTOPRAZOLE 40 MG TABLET PO SCH (08:16)
[2019-08-08] MEDS: DOCUSATE SODIUM 100 MG CAPSULE PO SCH (08:17)
[2019-08-08] MEDS: carvediloL 25 MG TABLET PO SCH (08:17)
[2019-08-08] MEDS: FINASTERIDE 5 MG TABLET PO SCH (08:17)
[2019-08-08] MEDS: ENALAPRIL 20 MG TABLET PO SCH (08:17)
== END 2019-08-08 10:57 | disposition home or self-care (01) | DRG 193 ==
LOC: EDUNIT# → EDBD → N.ED 18:42 → N.EDINP 20:11 → N.2E 23:08
PROVIDERS: ADMIT Family Medicine; ATTEND Family Medicine

== ENCOUNTER 2019-11-23 19:52 | Inpatient (IN) ==
[2019-11-23] MEDS ORDERED: LACTATED RINGERS 1,000 ML IV ONE (23:32)
[2019-11-24 00:36] LABS: Basophils % 0.2 % (0.0-0.8); Eosinophils % 0.1 % (0.00-10.9); Hematocrit 42.1 VOL% (42.0-52.0); Hemoglobin 13.8 GM/DL (14.0-18.0); Immature Granulocytes % 0.8 %; Immature Granulocytes Absolute 0.11 #; Lymphocytes # 0.2 10*3/uL (1.4-4.0); Lymphocytes % 1.3 % (21.2-54.2); Mean Corpuscular HGB Conc 32.8 GM/DL (32-36); Mean Corpuscular Volume 91.1 FL (87-102); Mean Platelet Volume 9.6 FL (9.6-12.0); Monocytes % 6.5 % (1.7-12.7); Neutrophils % 91.1 % (38.7-73.9); Platelet Count 201 T/CUMM (130-400); Red Blood Count 4.62 MC/CUMM (3.8-5.5); Red Cell Distribution Width 15.8 % (9.3-17.3); White Blood Count 14.6 T/CUMM (4-12)
[2019-11-24 00:58] LABS: Alanine Aminotransferase 76 U/L (16-61); Alkaline Phosphatase 314 U/L (45-117); Aspartate Amino Transferase 88 U/L (0-37); Blood Urea Nitrogen 31 MG/DL (7-18); Calcium 8.6 MG/DL (8.5-10.1); Estimated Glom Filtration Rate 52 ML/MIN; Glucose 178 MG/DL (74-106); Osmolality,Calculated 287.5 MOS/KG (273-304); Total Protein 6.4 G/DL (6.4-8.3)
[2019-11-24 01:06] LABS: Anisocytosis 1+; Band Neutrophils 5 % (0-10); Lymphocytes 2 % (20-55); Platelet Estimate Normal; Segmented Neutrophils 88 % (50-85); Total Cells Counted 100
[2019-11-24 01:18] LABS: INR 2.3
[2019-11-24 01:19] LABS: PT Patient Result 23.5 SECS (9.8-11.9)
[2019-11-24 02:16] LABS: Bacteria,Urine Occasional /HPF (Few); Bilirubin,Urine Negative (Negative); Blood, Urine Negative (Negative); Glucose,Urine (UA) Negative (Negative); Hyaline Casts,Urine 1 /LPF (0-3); Ketones,Urine Negative (Negative); Mucus,Urine Occasional /LPF (Occasional); Nitrite,Urine Negative (Negative); Protein,Urine Negative; RBC,Urine 1 /HPF (0-4); Squamous Epithelial Cell,Urine Occasional /HPF (0-10); Urine Appearance CLEAR (Clear); Urine Color Amber (Yellow); Urine Specific Gravity 1.029 (1.001-1.035); WBC,Urine 1 /HPF (0-6)
[2019-11-24] MEDS ORDERED: PIPERACILLIN/TAZOBACTAM 3,375 MG in SODIUM CHLORIDE 0.9% 100 ML IV STA (02:32)
[2019-11-24] MEDS ORDERED: ONDANSETRON 4 MG/2 ML VIAL IV PRN (02:34)
[2019-11-24] MEDS ORDERED: ACETAMINOPHEN 325 MG TABLET PO PRN (02:34)
[2019-11-24] MEDS: SODIUM CHLORIDE 0.9% 1,000 ML IV SCH ×4 (03:16→23:57)
[2019-11-24] MEDS ORDERED: PANTOPRAZOLE 40 MG VIAL IV SCH (09:00)
[2019-11-24] MEDS: carvediloL 25 MG TABLET PO SCH ×2 (09:32→17:54)
[2019-11-24] MEDS: PIPERACILLIN/TAZOBACTAM 3,375 MG in SODIUM CHLORIDE 0.9% 100 ML IV SCH ×2 (11:18→21:06)
[2019-11-24] MEDS ORDERED: WARFARIN 5 MG TABLET PO SCH (18:00)
[2019-11-25] MEDS: PIPERACILLIN/TAZOBACTAM 3,375 MG in SODIUM CHLORIDE 0.9% 100 ML IV SCH ×3 (03:36→20:49)
[2019-11-25 04:15] LABS: Basophils % 0.1 % (0.0-0.8); Hematocrit 38.1 VOL% (42.0-52.0); Hemoglobin 12.1 GM/DL (14.0-18.0); Immature Granulocytes % 0.8 %; Immature Granulocytes Absolute 0.17 #; Lymphocytes # 0.8 10*3/uL (1.4-4.0); Lymphocytes % 3.8 % (21.2-54.2); Mean Corpuscular HGB Conc 31.8 GM/DL (32-36); Mean Corpuscular Volume 91.8 FL (87-102); Mean Platelet Volume 9.9 FL (9.6-12.0); Monocytes % 6.9 % (1.7-12.7); Neutrophils % 88.4 % (38.7-73.9); Platelet Count 183 T/CUMM (130-400); Red Blood Count 4.15 MC/CUMM (3.8-5.5); Red Cell Distribution Width 16.5 % (9.3-17.3); White Blood Count 20.9 T/CUMM (4-12)
[2019-11-25 04:22] LABS: INR 2.6; PT Patient Result 26.5 SECS (9.8-11.9)
[2019-11-25 04:35] LABS: Band Neutrophils 2 % (0-10); Lymphocytes 6 % (20-55); Platelet Estimate Adequate; Segmented Neutrophils 85 % (50-85); Total Cells Counted 100
[2019-11-25 04:36] LABS: Hypochromasia Slight; Ovalocytes Slight
[2019-11-25 04:43] LABS: Albumin 2.8 G/DL (3.4-5.0); Bilirubin,Total 2.2 MG/DL (0.2-1.0); Calcium 8.3 MG/DL (8.5-10.1); Osmolality,Calculated 289.5 MOS/KG (273-304); Total Protein 6.3 G/DL (6.4-8.3)
[2019-11-25] MEDS ORDERED: ALBUTEROL 2.5 MG/3 ML NEB RESP TX PRN (07:51)
[2019-11-25] MEDS ORDERED: QUINAPRIL 20 MG TABLET PO SCH (09:00)
[2019-11-25] MEDS: carvediloL 25 MG TABLET PO SCH ×2 (10:08→17:59)
[2019-11-25] MEDS: FUROSEMIDE 40 MG TABLET PO SCH (10:08)
[2019-11-25] MEDS: PANTOPRAZOLE 40 MG TABLET PO SCH (10:08)
[2019-11-25] MEDS: SODIUM CHLORIDE 0.9% 1,000 ML IV SCH ×2 (10:11→20:48)
[2019-11-25] MEDS: ENALAPRIL 20 MG TABLET PO SCH (10:30)
[2019-11-25] MEDS: FINASTERIDE 5 MG TABLET PO SCH (15:40)
[2019-11-25] MEDS: POTASSIUM CHLORIDE 8 MEQ CAPSULE PO SCH ×2 (15:40→20:49)
[2019-11-25] MEDS: MAGNESIUM OXIDE 400 MG TABLET PO SCH ×2 (15:40→20:49)
[2019-11-25] MEDS ORDERED: metFORMIN 500 MG TABLET PO SCH (17:00)
[2019-11-25] MEDS ORDERED: WARFARIN 7.5 MG TABLET PO SCH (18:00)
[2019-11-26] MEDS: PIPERACILLIN/TAZOBACTAM 3,375 MG in SODIUM CHLORIDE 0.9% 100 ML IV SCH (03:44)
[2019-11-26 05:00] LABS: INR 2.6; PT Patient Result 26.2 SECS (9.8-11.9)
[2019-11-26 07:38] VITALS: BP 136/74
[2019-11-26 08:38] LABS: Basophils % 0.2 % (0.0-0.8); Eosinophils # 0.1 10*3/uL (0.0-0.87); Eosinophils % 0.5 % (0.00-10.9); Hematocrit 40.1 VOL% (42.0-52.0); Hemoglobin 12.8 GM/DL (14.0-18.0); Immature Granulocytes % 0.6 %; Immature Granulocytes Absolute 0.07 #; Lymphocytes # 1.1 10*3/uL (1.4-4.0); Lymphocytes % 8.7 % (21.2-54.2); Mean Corpuscular HGB Conc 31.9 GM/DL (32-36); Mean Corpuscular Volume 92.4 FL (87-102); Monocytes % 7.7 % (1.7-12.7); Neutrophils % 82.3 % (38.7-73.9); Platelet Count 201 T/CUMM (130-400); Red Blood Count 4.34 MC/CUMM (3.8-5.5); Red Cell Distribution Width 16.1 % (9.3-17.3); White Blood Count 12.4 T/CUMM (4-12)
[2019-11-26] MEDS: SODIUM CHLORIDE 0.9% 1,000 ML IV SCH (09:18)
[2019-11-26] MEDS: MAGNESIUM OXIDE 400 MG TABLET PO SCH (09:19)
[2019-11-26] MEDS: FINASTERIDE 5 MG TABLET PO SCH (09:19)
[2019-11-26] MEDS: carvediloL 25 MG TABLET PO SCH (09:19)
[2019-11-26] MEDS: POTASSIUM CHLORIDE 8 MEQ CAPSULE PO SCH (09:19)
[2019-11-26] MEDS: FUROSEMIDE 40 MG TABLET PO SCH (09:19)
[2019-11-26] MEDS: PANTOPRAZOLE 40 MG TABLET PO SCH (09:19)
[2019-11-26] MEDS: ENALAPRIL 20 MG TABLET PO SCH (09:20)
[2019-11-26] MEDS ORDERED: WARFARIN 5 MG TABLET PO SCH (21:00)
[2019-11-29] MEDS ORDERED: WARFARIN 7.5 MG TABLET PO SCH (21:00)
== END 2019-11-26 11:47 | disposition home or self-care (01) | DRG 552 ==
LOC: N.ED 19:52 → N.EDINP 11-24 02:33 → N.5E 11-24 03:29
PROVIDERS: ADMIT Family Medicine; ATTEND Family Medicine

== ENCOUNTER 2020-01-29 18:42 | Inpatient (IN) ==
[2020-01-29] MEDS ORDERED: SODIUM CHLORIDE 0.9% 1,000 ML IV STA (20:14)
[2020-01-29 20:23] LABS: Basophils % 0.1 % (0.0-0.8); Eosinophils % 0.1 % (0.00-10.9); Hematocrit 39.4 VOL% (42.0-52.0); Hemoglobin 13.1 GM/DL (14.0-18.0); Immature Granulocytes % 0.5 %; Immature Granulocytes Absolute 0.05 #; Lymphocytes # 0.2 10*3/uL (1.4-4.0); Lymphocytes % 1.7 % (21.2-54.2); Mean Corpuscular HGB Conc 33.2 GM/DL (32-36); Mean Corpuscular Volume 89.7 FL (87-102); Mean Platelet Volume 10.1 FL (9.6-12.0); Monocytes % 3.5 % (1.7-12.7); Neutrophils % 94.1 % (38.7-73.9); Platelet Count 201 T/CUMM (130-400); Red Blood Count 4.39 MC/CUMM (3.8-5.5); Red Cell Distribution Width 15.3 % (9.3-17.3); White Blood Count 10.2 T/CUMM (4-12)
[2020-01-29 20:42] LABS: Thyroid Stimulating Hormone 0.776 uIU/ml (0.358-3.74); Troponin I < 0.015 NG/ML (0.00-0.045)
[2020-01-29 20:45] LABS: Albumin 2.7 G/DL (3.4-5.0); Bilirubin,Total 4.2 MG/DL (0.2-1.0); Calcium 7.9 MG/DL (8.5-10.1); Osmolality,Calculated 290.4 MOS/KG (273-304); Potassium 3.4 MMOL/L (3.5-5.1); Total Protein 5.8 G/DL (6.4-8.3)
[2020-01-29 20:51] LABS: Eosinophils 1 % (0-10); Lymphocytes 1 % (20-55); Segmented Neutrophils 97 % (50-85); Smudge Cells Few; Total Cells Counted 100
[2020-01-29 20:52] LABS: Anisocytosis Slight; Macrocytosis Slight; Platelet Estimate Adequate
[2020-01-29 20:57] LABS: INR 1.2; PT Patient Result 12.3 SECS (9.8-11.9); Partial Thromboplastin Time 28.7 SECS (23.9-33.8)
[2020-01-29 23:47] LABS: Bacteria,Urine Occasional /HPF (Few); Bilirubin,Urine Small mg/dL (Negative); Blood, Urine Negative (Negative); Glucose,Urine (UA) Negative (Negative); Ketones,Urine Negative (Negative); Mucus,Urine Occasional /LPF (Occasional); Nitrite,Urine Negative (Negative); Protein,Urine Negative; RBC,Urine <1 /HPF (0-4); Squamous Epithelial Cell,Urine Occasional /HPF (0-10); Urine Appearance CLEAR (Clear); Urine Color Amber (Yellow); Urine Specific Gravity 1.021 (1.001-1.035); WBC,Urine 3 /HPF (0-6)
[2020-01-30] MEDS ORDERED: DEXTROSE 50% 25 GM/50 ML VIAL IV PRN (00:34)
[2020-01-30] MEDS ORDERED: GLUCAGON 1 MG VIAL IM PRN (00:34)
[2020-01-30] MEDS ORDERED: ACETAMINOPHEN 325 MG TABLET PO PRN (00:34)
[2020-01-30] MEDS ORDERED: ONDANSETRON 4 MG/2 ML VIAL IV PRN (00:34)
[2020-01-30] MEDS: SODIUM CHLORIDE 0.9% 1,000 ML IV SCH ×5 (02:23→23:34)
[2020-01-30] MEDS ORDERED: ALBUTEROL SULFATE INH PRN (07:53)
[2020-01-30] MEDS ORDERED: ALBUTEROL 2.5 MG/3 ML NEB RESP TX PRN (07:53)
[2020-01-30] MEDS: carvediloL 25 MG TABLET PO SCH ×3 (09:10→20:56)
[2020-01-30] MEDS: PANTOPRAZOLE 40 MG TABLET PO SCH ×2 (09:10→09:12)
[2020-01-30] MEDS: FOLIC ACID 1 MG TABLET PO SCH (09:10)
[2020-01-30] MEDS: MAGNESIUM OXIDE 400 MG TABLET PO SCH ×2 (09:10→22:26)
[2020-01-30] MEDS: FINASTERIDE 5 MG TABLET PO SCH (09:10)
[2020-01-30] MEDS: POTASSIUM CHLORIDE 8 MEQ CAPSULE PO SCH ×2 (09:10→22:27)
[2020-01-30] MEDS: INSULIN REGULAR 100 UNIT/ML SUBCUT SCH ×3 (09:10→23:39)
[2020-01-30] MEDS: FUROSEMIDE 40 MG TABLET PO SCH (09:10)
[2020-01-30] MEDS: DOCUSATE SODIUM 100 MG CAPSULE PO SCH ×2 (09:10→23:39)
[2020-01-30] MEDS: ENALAPRIL 10 MG TABLET PO SCH (09:10)
[2020-01-30] MEDS: metFORMIN 500 MG TABLET PO SCH (17:29)
[2020-01-30] MEDS: WARFARIN 5 MG TABLET PO SCH (17:30)
[2020-01-31] MEDS: SODIUM CHLORIDE 0.9% 1,000 ML IV SCH ×3 (04:33→21:38)
[2020-01-31] MEDS: cefTRIAXone 1,000 MG in SYRINGE 1 EACH IV SCH (06:00)
[2020-01-31 07:00] LABS: Basophils # 0.1 10*3/uL (0.0-0.2); Basophils % 0.3 % (0.0-0.8); Hematocrit 39.6 VOL% (42.0-52.0); Hemoglobin 12.8 GM/DL (14.0-18.0); Immature Granulocytes % 8.2 %; Immature Granulocytes Absolute 2.12 #; Lymphocytes # 0.7 10*3/uL (1.4-4.0); Lymphocytes % 2.6 % (21.2-54.2); Mean Corpuscular HGB Conc 32.3 GM/DL (32-36); Mean Corpuscular Volume 93.4 FL (87-102); Mean Platelet Volume 10.4 FL (9.6-12.0); Neutrophils % 83.9 % (38.7-73.9); Platelet Count 162 T/CUMM (130-400); Red Blood Count 4.24 MC/CUMM (3.8-5.5); Red Cell Distribution Width 16.6 % (9.3-17.3)
[2020-01-31 07:13] LABS: INR 1.2
[2020-01-31 07:26] LABS: Anisocytosis 1+; Band Neutrophils 30 % (0-10); Burr Cells 1+; Lymphocytes 2 % (20-55); Metamyelocytes 5 %; Myelocytes 2 %; Platelet Estimate Normal; Segmented Neutrophils 55 % (50-85); Total Cells Counted 100
[2020-01-31] MEDS: FINASTERIDE 5 MG TABLET PO SCH (08:33)
[2020-01-31] MEDS: MAGNESIUM OXIDE 400 MG TABLET PO SCH ×2 (08:33→21:38)
[2020-01-31] MEDS: POTASSIUM CHLORIDE 8 MEQ CAPSULE PO SCH ×2 (08:34→21:38)
[2020-01-31] MEDS: FOLIC ACID 1 MG TABLET PO SCH (08:34)
[2020-01-31] MEDS: FUROSEMIDE 40 MG TABLET PO SCH (08:34)
[2020-01-31] MEDS: PANTOPRAZOLE 40 MG TABLET PO SCH ×2 (08:34→08:35)
[2020-01-31] MEDS: carvediloL 25 MG TABLET PO SCH ×2 (08:34→21:37)
[2020-01-31] MEDS: ENALAPRIL 10 MG TABLET PO SCH (08:34)
[2020-01-31] MEDS: DOCUSATE SODIUM 100 MG CAPSULE PO SCH ×2 (08:35→21:37)
[2020-01-31] MEDS: INSULIN REGULAR 100 UNIT/ML SUBCUT SCH ×4 (08:37→21:37)
[2020-01-31] MEDS ORDERED: WARFARIN 3 MG TABLET PO ONE (11:57)
[2020-01-31 12:26] LABS: Potassium 4.7 MMOL/L (3.5-5.1)
[2020-01-31 12:42] LABS: Blood, Urine Moderate mg/dL (Negative); Glucose,Urine (UA) Negative (Negative); Hyaline Casts,Urine 13 /LPF (0-3); Ketones,Urine Negative (Negative); Mucus,Urine Occasional /LPF (Occasional); Nitrite,Urine Negative (Negative); Protein,Urine 30 MG/DL; RBC,Urine 4 /HPF (0-4); Squamous Epithelial Cell,Urine Occasional /HPF (0-10); Urine Appearance CLOUDY (Clear); Urine Color Amber (Yellow); Urine Specific Gravity 1.017 (1.001-1.035); WBC,Urine 16 /HPF (0-6)
[2020-01-31 12:43] LABS: Bilirubin,Urine Small mg/dL (Negative)
[2020-01-31] MEDS: metFORMIN 500 MG TABLET PO SCH (17:36)
[2020-01-31] MEDS: WARFARIN 7.5 MG TABLET PO SCH (17:36)
[2020-02-01] MEDS: SODIUM CHLORIDE 0.9% 1,000 ML IV SCH ×5 (02:25→14:13)
[2020-02-01] MEDS: cefTRIAXone 1,000 MG in SYRINGE 1 EACH IV SCH (06:38)
[2020-02-01 06:44] LABS: INR 1.4; PT Patient Result 14.3 SECS (9.8-11.9)
[2020-02-01] MEDS: FOLIC ACID 1 MG TABLET PO SCH (09:04)
[2020-02-01] MEDS: FINASTERIDE 5 MG TABLET PO SCH (09:04)
[2020-02-01] MEDS: ENALAPRIL 10 MG TABLET PO SCH (09:04)
[2020-02-01] MEDS: POTASSIUM CHLORIDE 8 MEQ CAPSULE PO SCH ×2 (09:04→21:59)
[2020-02-01] MEDS: carvediloL 25 MG TABLET PO SCH ×2 (09:05→22:00)
[2020-02-01] MEDS: INSULIN REGULAR 100 UNIT/ML SUBCUT SCH ×4 (09:05→22:00)
[2020-02-01] MEDS: DOCUSATE SODIUM 100 MG CAPSULE PO SCH ×2 (09:05→21:59)
[2020-02-01] MEDS: MAGNESIUM OXIDE 400 MG TABLET PO SCH ×2 (09:05→21:59)
[2020-02-01] MEDS: PANTOPRAZOLE 40 MG TABLET PO SCH ×2 (09:05)
[2020-02-01] MEDS: FUROSEMIDE 40 MG TABLET PO SCH (09:05)
[2020-02-01] MEDS: metFORMIN 500 MG TABLET PO SCH (17:28)
[2020-02-01] MEDS: WARFARIN 5 MG TABLET PO SCH (17:31)
[2020-02-02 05:13] LABS: Basophils % 0.1 % (0.0-0.8); Eosinophils # 0.1 10*3/uL (0.0-0.87); Eosinophils % 0.6 % (0.00-10.9); Hematocrit 38.5 VOL% (42.0-52.0); Hemoglobin 12.5 GM/DL (14.0-18.0); Immature Granulocytes % 0.2 %; Immature Granulocytes Absolute 0.03 #; Lymphocytes % 8.2 % (21.2-54.2); Mean Corpuscular HGB Conc 32.5 GM/DL (32-36); Mean Corpuscular Volume 91.7 FL (87-102); Mean Platelet Volume 10.8 FL (9.6-12.0); Monocytes % 7.9 % (1.7-12.7); Platelet Count 141 T/CUMM (130-400); Red Cell Distribution Width 16.5 % (9.3-17.3); White Blood Count 12.2 T/CUMM (4-12)
[2020-02-02 05:44] LABS: Albumin 2.4 G/DL (3.4-5.0); Bilirubin,Total 1.4 MG/DL (0.2-1.0); Calcium 7.8 MG/DL (8.5-10.1); Osmolality,Calculated 296.1 MOS/KG (273-304); Potassium 3.6 MMOL/L (3.5-5.1); Total Protein 5.8 G/DL (6.4-8.3)
[2020-02-02] MEDS: cefTRIAXone 1,000 MG in SYRINGE 1 EACH IV SCH (06:13)
[2020-02-02] MEDS: FINASTERIDE 5 MG TABLET PO SCH (08:39)
[2020-02-02] MEDS: MAGNESIUM OXIDE 400 MG TABLET PO SCH ×2 (08:39→21:53)
[2020-02-02] MEDS: DOCUSATE SODIUM 100 MG CAPSULE PO SCH ×2 (08:39→21:53)
[2020-02-02] MEDS: carvediloL 25 MG TABLET PO SCH ×2 (08:39→21:54)
[2020-02-02] MEDS: ENALAPRIL 10 MG TABLET PO SCH (08:39)
[2020-02-02] MEDS: PANTOPRAZOLE 40 MG TABLET PO SCH ×2 (08:39→08:40)
[2020-02-02] MEDS: FUROSEMIDE 40 MG TABLET PO SCH (08:39)
[2020-02-02] MEDS: POTASSIUM CHLORIDE 8 MEQ CAPSULE PO SCH ×2 (08:39→21:53)
[2020-02-02] MEDS: INSULIN REGULAR 100 UNIT/ML SUBCUT SCH ×4 (08:40→21:54)
[2020-02-02] MEDS: FOLIC ACID 1 MG TABLET PO SCH (08:40)
[2020-02-02] MEDS: SODIUM CHLORIDE 0.9% 1,000 ML IV SCH ×2 (14:40→15:19)
[2020-02-02] MEDS: metFORMIN 500 MG TABLET PO SCH (17:00)
[2020-02-02] MEDS: WARFARIN 5 MG TABLET PO SCH (17:01)
[2020-02-02] MEDS: SERTRALINE 50 MG TABLET PO SCH (21:54)
[2020-02-03 05:34] LABS: Potassium 3.6 MMOL/L (3.5-5.1)
[2020-02-03] MEDS: cefTRIAXone 1,000 MG in SYRINGE 1 EACH IV SCH (06:19)
[2020-02-03 07:17] LABS: PT Patient Result 20.9 SECS (9.8-11.9)
[2020-02-03] MEDS: POTASSIUM CHLORIDE 8 MEQ CAPSULE PO SCH ×2 (09:51→21:27)
[2020-02-03] MEDS: MAGNESIUM OXIDE 400 MG TABLET PO SCH ×2 (09:54→21:26)
[2020-02-03] MEDS: FINASTERIDE 5 MG TABLET PO SCH (09:54)
[2020-02-03] MEDS: PANTOPRAZOLE 40 MG TABLET PO SCH ×2 (09:54)
[2020-02-03] MEDS: DOCUSATE SODIUM 100 MG CAPSULE PO SCH ×2 (09:54→21:32)
[2020-02-03] MEDS: carvediloL 25 MG TABLET PO SCH ×2 (09:54→21:27)
[2020-02-03] MEDS: FUROSEMIDE 40 MG TABLET PO SCH (09:54)
[2020-02-03] MEDS: INSULIN REGULAR 100 UNIT/ML SUBCUT SCH ×4 (09:54→22:22)
[2020-02-03] MEDS: FOLIC ACID 1 MG TABLET PO SCH (09:54)
[2020-02-03] MEDS: ENALAPRIL 10 MG TABLET PO SCH (09:54)
[2020-02-03] MEDS: metFORMIN 500 MG TABLET PO SCH (17:27)
[2020-02-03] MEDS: WARFARIN 5 MG TABLET PO SCH (17:28)
[2020-02-03] MEDS: SODIUM CHLORIDE 0.9% 1,000 ML IV SCH (18:36)
[2020-02-03] MEDS: WARFARIN 7.5 MG TABLET PO SCH (18:36)
[2020-02-03] MEDS: SERTRALINE 50 MG TABLET PO SCH (21:27)
[2020-02-04 05:28] LABS: Basophils % 0.2 % (0.0-0.8); Eosinophils # 0.3 10*3/uL (0.0-0.87); Eosinophils % 2.1 % (0.00-10.9); Hematocrit 41.8 VOL% (42.0-52.0); Hemoglobin 13.6 GM/DL (14.0-18.0); Immature Granulocytes % 0.6 %; Immature Granulocytes Absolute 0.07 #; Lymphocytes # 1.3 10*3/uL (1.4-4.0); Lymphocytes % 10.7 % (21.2-54.2); Mean Corpuscular HGB Conc 32.5 GM/DL (32-36); Mean Corpuscular Volume 90.1 FL (87-102); Mean Platelet Volume 10.4 FL (9.6-12.0); Monocytes % 10.8 % (1.7-12.7); Neutrophils % 75.6 % (38.7-73.9); Platelet Count 175 T/CUMM (130-400); Red Blood Count 4.64 MC/CUMM (3.8-5.5); Red Cell Distribution Width 15.9 % (9.3-17.3); White Blood Count 12.2 T/CUMM (4-12)
[2020-02-04 05:36] LABS: INR 2.1; PT Patient Result 21.6 SECS (9.8-11.9)
[2020-02-04] MEDS: cefTRIAXone 1,000 MG in SYRINGE 1 EACH IV SCH (05:39)
[2020-02-04 05:49] LABS: Calcium 8.5 MG/DL (8.5-10.1); Potassium 3.8 MMOL/L (3.5-5.1)
[2020-02-04] MEDS: PANTOPRAZOLE 40 MG TABLET PO SCH ×2 (08:51→09:18)
[2020-02-04] MEDS: DOCUSATE SODIUM 100 MG CAPSULE PO SCH ×2 (08:51→20:47)
[2020-02-04] MEDS: FINASTERIDE 5 MG TABLET PO SCH (08:51)
[2020-02-04] MEDS: FUROSEMIDE 40 MG TABLET PO SCH (08:51)
[2020-02-04] MEDS: FOLIC ACID 1 MG TABLET PO SCH (08:51)
[2020-02-04] MEDS: ENALAPRIL 10 MG TABLET PO SCH (08:53)
[2020-02-04] MEDS: MAGNESIUM OXIDE 400 MG TABLET PO SCH ×2 (08:53→20:46)
[2020-02-04] MEDS: POTASSIUM CHLORIDE 8 MEQ CAPSULE PO SCH ×2 (08:53→20:45)
[2020-02-04] MEDS: carvediloL 25 MG TABLET PO SCH ×2 (08:53→20:46)
[2020-02-04] MEDS: INSULIN REGULAR 100 UNIT/ML SUBCUT SCH ×4 (09:18→20:51)
[2020-02-04] MEDS: SODIUM CHLORIDE 0.9% 1,000 ML IV SCH (16:30)
[2020-02-04] MEDS: WARFARIN 5 MG TABLET PO SCH (17:14)
[2020-02-04] MEDS: metFORMIN 500 MG TABLET PO SCH (17:14)
[2020-02-04] MEDS: SERTRALINE 50 MG TABLET PO SCH (20:46)
[2020-02-05] MEDS: cefTRIAXone 1,000 MG in SYRINGE 1 EACH IV SCH (04:37)
[2020-02-05 06:55] LABS: Basophils % 0.2 % (0.0-0.8); Eosinophils # 0.2 10*3/uL (0.0-0.87); Eosinophils % 2.3 % (0.00-10.9); Hematocrit 40.1 VOL% (42.0-52.0); Hemoglobin 13.6 GM/DL (14.0-18.0); Lymphocytes # 1.3 10*3/uL (1.4-4.0); Lymphocytes % 13.5 % (21.2-54.2); Mean Corpuscular HGB Conc 33.9 GM/DL (32-36); Mean Corpuscular Volume 89.3 FL (87-102); Mean Platelet Volume 10.1 FL (9.6-12.0); Monocytes % 11.3 % (1.7-12.7); Neutrophils % 71.7 % (38.7-73.9); Platelet Count 172 T/CUMM (130-400); Red Blood Count 4.49 MC/CUMM (3.8-5.5); Red Cell Distribution Width 15.8 % (9.3-17.3); White Blood Count 9.6 T/CUMM (4-12)
[2020-02-05 07:09] LABS: INR 1.9; PT Patient Result 19.8 SECS (9.8-11.9)
[2020-02-05 07:15] LABS: Calcium 8.4 MG/DL (8.5-10.1); Osmolality,Calculated 287.1 MOS/KG (273-304); Potassium 4.3 MMOL/L (3.5-5.1)
[2020-02-05] MEDS: ENALAPRIL 10 MG TABLET PO SCH (08:50)
[2020-02-05] MEDS: POTASSIUM CHLORIDE 8 MEQ CAPSULE PO SCH ×2 (08:51→21:50)
[2020-02-05] MEDS: PANTOPRAZOLE 40 MG TABLET PO SCH ×2 (08:52→08:54)
[2020-02-05] MEDS: DOCUSATE SODIUM 100 MG CAPSULE PO SCH ×2 (08:52→21:49)
[2020-02-05] MEDS: carvediloL 25 MG TABLET PO SCH ×2 (08:52→21:50)
[2020-02-05] MEDS: FUROSEMIDE 40 MG TABLET PO SCH (08:52)
[2020-02-05] MEDS: MAGNESIUM OXIDE 400 MG TABLET PO SCH ×2 (08:52→21:50)
[2020-02-05] MEDS: FINASTERIDE 5 MG TABLET PO SCH (08:52)
[2020-02-05] MEDS: FOLIC ACID 1 MG TABLET PO SCH (08:52)
[2020-02-05] MEDS: INSULIN REGULAR 100 UNIT/ML SUBCUT SCH ×4 (09:30→21:50)
[2020-02-05] MEDS: SODIUM CHLORIDE 0.9% 1,000 ML IV SCH (14:02)
[2020-02-05] MEDS: WARFARIN 7.5 MG TABLET PO SCH (18:00)
[2020-02-05] MEDS: metFORMIN 500 MG TABLET PO SCH (18:00)
[2020-02-05] MEDS: SERTRALINE 50 MG TABLET PO SCH (21:50)
[2020-02-06] MEDS: cefTRIAXone 1,000 MG in SYRINGE 1 EACH IV SCH (05:17)
[2020-02-06 06:05] LABS: INR 1.8; PT Patient Result 18.6 SECS (9.8-11.9)
[2020-02-06 06:06] LABS: Basophils % 0.4 % (0.0-0.8); Eosinophils # 0.2 10*3/uL (0.0-0.87); Eosinophils % 2.7 % (0.00-10.9); Hematocrit 39.8 VOL% (42.0-52.0); Hemoglobin 13.4 GM/DL (14.0-18.0); Immature Granulocytes Absolute 0.08 #; Lymphocytes # 1.3 10*3/uL (1.4-4.0); Lymphocytes % 16.7 % (21.2-54.2); Mean Corpuscular HGB Conc 33.7 GM/DL (32-36); Mean Corpuscular Volume 88.6 FL (87-102); Mean Platelet Volume 10.1 FL (9.6-12.0); Monocytes % 12.8 % (1.7-12.7); Neutrophils % 66.4 % (38.7-73.9); Platelet Count 202 T/CUMM (130-400); Red Blood Count 4.49 MC/CUMM (3.8-5.5); Red Cell Distribution Width 15.2 % (9.3-17.3); White Blood Count 7.8 T/CUMM (4-12)
[2020-02-06 06:08] LABS: Calcium 8.1 MG/DL (8.5-10.1); Osmolality,Calculated 285.3 MOS/KG (273-304); Potassium 3.5 MMOL/L (3.5-5.1)
[2020-02-06] MEDS: INSULIN REGULAR 100 UNIT/ML SUBCUT SCH ×2 (08:48→13:51)
[2020-02-06] MEDS: DOCUSATE SODIUM 100 MG CAPSULE PO SCH (08:48)
[2020-02-06] MEDS: carvediloL 25 MG TABLET PO SCH (08:49)
[2020-02-06] MEDS: MAGNESIUM OXIDE 400 MG TABLET PO SCH (08:49)
[2020-02-06] MEDS: FUROSEMIDE 40 MG TABLET PO SCH (08:49)
[2020-02-06] MEDS: PANTOPRAZOLE 40 MG TABLET PO SCH ×2 (08:49→08:51)
[2020-02-06] MEDS: ENALAPRIL 10 MG TABLET PO SCH (08:49)
[2020-02-06] MEDS: POTASSIUM CHLORIDE 8 MEQ CAPSULE PO SCH (08:50)
[2020-02-06] MEDS: FINASTERIDE 5 MG TABLET PO SCH (08:50)
[2020-02-06] MEDS: FOLIC ACID 1 MG TABLET PO SCH (08:50)
[2020-02-06 12:02] VITALS: BP 159/90
[2020-02-06] MEDS: SODIUM CHLORIDE 0.9% 1,000 ML IV SCH (13:53)
== END 2020-02-06 13:27 | disposition swing bed (61) | DRG 871 ==
LOC: N.EDINP 18:42 → N.ED 18:42 → N.TELES 23:28
PROVIDERS: ADMIT Family Medicine; ATTEND Family Medicine

== ENCOUNTER 2020-03-08 17:07 | Inpatient (IN) ==
[2020-03-08 17:56] LABS: Basophils % 0.2 % (0.0-0.8); Eosinophils % 0.2 % (0.00-10.9); Hematocrit 44.2 VOL% (42.0-52.0); Hemoglobin 14.5 GM/DL (14.0-18.0); Immature Granulocytes % 0.6 %; Immature Granulocytes Absolute 0.03 #; Lymphocytes # 0.1 10*3/uL (1.4-4.0); Mean Corpuscular HGB Conc 32.8 GM/DL (32-36); Mean Corpuscular Volume 91.3 FL (87-102); Mean Platelet Volume 9.6 FL (9.6-12.0); Monocytes % 0.6 % (1.7-12.7); Neutrophils % 96.4 % (38.7-73.9); Platelet Count 212 T/CUMM (130-400); Red Blood Count 4.84 MC/CUMM (3.8-5.5); Red Cell Distribution Width 15.3 % (9.3-17.3); White Blood Count 4.9 T/CUMM (4-12)
[2020-03-08 18:03] LABS: Calcium 8.5 MG/DL (8.5-10.1); Osmolality,Calculated 284.4 MOS/KG (273-304)
[2020-03-08 18:31] LABS: Lymphocytes 3 % (20-55); Segmented Neutrophils 95 % (50-85)
[2020-03-08 18:32] LABS: Platelet Estimate Adequate; Total Cells Counted 100
[2020-03-08] MEDS ORDERED: methylPREDNISolone SOD SUC 125 MG/2 ML VIAL IV STA (18:41)
[2020-03-08] MEDS ORDERED: PIPERACILLIN/TAZOBACTAM 3,375 MG in SODIUM CHLORIDE 0.9% 100 ML IV STA (18:41)
[2020-03-08] MEDS ORDERED: ONDANSETRON 4 MG/2 ML VIAL IV STA (18:41)
[2020-03-08] MEDS ORDERED: ALBUTEROL/IPRATROPIUM 3 ML NEB RESP TX STA (18:41)
[2020-03-08 19:01] LABS: Calcium 8.1 MG/DL (8.5-10.1); Osmolality,Calculated 286.3 MOS/KG (273-304); Total Protein 6.4 G/DL (6.4-8.3)
[2020-03-08 19:02] LABS: INR 2.2
[2020-03-08 19:03] LABS: PT Patient Result 22.3 SECS (9.8-11.9)
[2020-03-08] MEDS ORDERED: SODIUM CHLORIDE 0.9% 500 ML IV STA (19:10)
[2020-03-08 22:11] LABS: Bilirubin,Urine Negative (Negative); Blood, Urine Negative (Negative); Glucose,Urine (UA) Negative (Negative); Ketones,Urine Negative (Negative); Mucus,Urine Occasional /LPF (Occasional); Nitrite,Urine Negative (Negative); Protein,Urine Negative; RBC,Urine 3 /HPF (0-4); Squamous Epithelial Cell,Urine Occasional /HPF (0-10); Urine Appearance CLEAR (Clear); Urine Color Amber (Yellow); WBC,Urine 3 /HPF (0-6)
[2020-03-08] MEDS ORDERED: ONDANSETRON 4 MG/2 ML VIAL IV PRN (23:26)
[2020-03-08] MEDS ORDERED: GLUCAGON 1 MG VIAL IM PRN (23:26)
[2020-03-08] MEDS ORDERED: DEXTROSE 50% 25 GM/50 ML VIAL IV PRN (23:26)
[2020-03-08] MEDS ORDERED: MORPHINE 4 MG/1 ML VIAL IV PRN (23:26)
[2020-03-08] MEDS ORDERED: ACETAMINOPHEN 325 MG TABLET PO PRN (23:26)
[2020-03-08] MEDS ORDERED: SODIUM CHLORIDE 0.9% 1,000 ML IV STA (23:29)
[2020-03-09] MEDS: SODIUM CHLORIDE 0.9% 1,000 ML IV SCH ×3 (00:20→18:27)
[2020-03-09 00:23] LABS: Troponin I < 0.015 NG/ML (0.00-0.045)
[2020-03-09] MEDS: INSULIN REGULAR 100 UNIT/ML SUBCUT SCH ×4 (00:25→18:26)
[2020-03-09 01:34] LABS: Basophils # 0.1 10*3/uL (0.0-0.2); Basophils % 0.2 % (0.0-0.8); Eosinophils # 0.1 10*3/uL (0.0-0.87); Eosinophils % 0.4 % (0.00-10.9); Hematocrit 39.7 VOL% (42.0-52.0); Hemoglobin 12.9 GM/DL (14.0-18.0); Immature Granulocytes % 3.3 %; Immature Granulocytes Absolute 0.71 #; Lymphocytes # 0.3 10*3/uL (1.4-4.0); Lymphocytes % 1.4 % (21.2-54.2); Mean Corpuscular HGB Conc 32.5 GM/DL (32-36); Mean Corpuscular Volume 93.4 FL (87-102); Mean Platelet Volume 10.2 FL (9.6-12.0); Monocytes % 4.8 % (1.7-12.7); Neutrophils % 89.9 % (38.7-73.9); Platelet Count 200 T/CUMM (130-400); Red Blood Count 4.25 MC/CUMM (3.8-5.5); Red Cell Distribution Width 15.8 % (9.3-17.3); White Blood Count 21.4 T/CUMM (4-12)
[2020-03-09 02:04] LABS: Albumin 2.5 G/DL (3.4-5.0); Bilirubin,Total 4.5 MG/DL (0.2-1.0); Calcium 7.7 MG/DL (8.5-10.1); Risk Ratio 4.1; Total Protein 5.8 G/DL (6.4-8.3); VLDL CHOLESTEROL 26.4 MG/DL
[2020-03-09] MEDS: PIPERACILLIN/TAZOBACTAM 3,375 MG in SODIUM CHLORIDE 0.9% 100 ML IV SCH ×3 (02:30→18:25)
[2020-03-09 03:47] LABS: Band Neutrophils 6 % (0-10); Hypochromasia Slight; Lymphocytes 1 % (20-55); Metamyelocytes 1 %; Microcytosis 1+; Segmented Neutrophils 86 % (50-85); Total Cells Counted 100
[2020-03-09 03:48] LABS: Platelet Estimate Normal
[2020-03-09] MEDS ORDERED: ACETAMINOPHEN 325 MG TABLET PO PRN (08:13)
[2020-03-09] MEDS ORDERED: SODIUM CHLORIDE 0.9% 500 ML IV ONE ×2 (08:16→13:27)
[2020-03-09] MEDS: MAGNESIUM OXIDE 400 MG TABLET PO SCH ×2 (08:55→21:02)
[2020-03-09] MEDS: FOLIC ACID 1 MG TABLET PO SCH (08:55)
[2020-03-09] MEDS: POTASSIUM CHLORIDE 8 MEQ CAPSULE PO SCH ×2 (08:55→21:01)
[2020-03-09] MEDS: PANTOPRAZOLE 40 MG TABLET PO SCH (08:55)
[2020-03-09] MEDS: carvediloL 25 MG TABLET PO SCH ×2 (08:55→21:02)
[2020-03-09] MEDS: DOCUSATE SODIUM 100 MG CAPSULE PO SCH ×2 (08:55→21:02)
[2020-03-09] MEDS: FINASTERIDE 5 MG TABLET PO SCH (08:55)
[2020-03-09] MEDS ORDERED: PANTOPRAZOLE 40 MG TABLET PO SCH (09:00)
[2020-03-09] MEDS ORDERED: CEFUROXIME 500 MG TABLET PO SCH (09:00)
[2020-03-09] MEDS: WARFARIN 7.5 MG TABLET PO SCH (18:26)
[2020-03-09] MEDS: SERTRALINE 50 MG TABLET PO SCH (21:02)
[2020-03-10] MEDS: SODIUM CHLORIDE 0.9% 1,000 ML IV SCH ×3 (00:59→18:03)
[2020-03-10] MEDS: INSULIN REGULAR 100 UNIT/ML SUBCUT SCH ×4 (01:40→18:02)
[2020-03-10] MEDS: PIPERACILLIN/TAZOBACTAM 3,375 MG in SODIUM CHLORIDE 0.9% 100 ML IV SCH ×3 (02:35→18:03)
[2020-03-10] MEDS: FINASTERIDE 5 MG TABLET PO SCH (09:14)
[2020-03-10] MEDS: POTASSIUM CHLORIDE 8 MEQ CAPSULE PO SCH ×2 (09:14→20:58)
[2020-03-10] MEDS: PANTOPRAZOLE 40 MG TABLET PO SCH (09:14)
[2020-03-10] MEDS: MAGNESIUM OXIDE 400 MG TABLET PO SCH ×2 (09:14→20:34)
[2020-03-10] MEDS: DOCUSATE SODIUM 100 MG CAPSULE PO SCH ×2 (09:14→20:57)
[2020-03-10] MEDS: carvediloL 25 MG TABLET PO SCH ×2 (09:14→20:34)
[2020-03-10] MEDS: FOLIC ACID 1 MG TABLET PO SCH (09:14)
[2020-03-10] MEDS: ALBUTEROL 2.5 MG/3 ML NEB RESP TX PRN ×2 (13:00→23:27)
[2020-03-10] MEDS: WARFARIN 5 MG TABLET PO SCH (17:04)
[2020-03-10] MEDS: DEXTROMETHORPHAN ER 6 MG/ML 90 ML/BOTTLE PO PRN (17:04)
[2020-03-10] MEDS: SERTRALINE 50 MG TABLET PO SCH (20:34)
[2020-03-11] MEDS: SODIUM CHLORIDE 0.9% 1,000 ML IV SCH ×2 (00:50→03:31)
[2020-03-11] MEDS: INSULIN REGULAR 100 UNIT/ML SUBCUT SCH ×4 (01:51→17:52)
[2020-03-11] MEDS: PIPERACILLIN/TAZOBACTAM 3,375 MG in SODIUM CHLORIDE 0.9% 100 ML IV SCH ×3 (03:03→18:07)
[2020-03-11 06:17] LABS: Basophils % 0.2 % (0.0-0.8); Eosinophils % 0.1 % (0.00-10.9); Hematocrit 38.4 VOL% (42.0-52.0); Hemoglobin 12.3 GM/DL (14.0-18.0); Immature Granulocytes % 1.8 %; Immature Granulocytes Absolute 0.33 #; Lymphocytes % 5.8 % (21.2-54.2); Mean Corpuscular Volume 94.6 FL (87-102); Monocytes % 3.6 % (1.7-12.7); Neutrophils % 88.5 % (38.7-73.9); Platelet Count 174 T/CUMM (130-400); Red Blood Count 4.06 MC/CUMM (3.8-5.5); White Blood Count 18.1 T/CUMM (4-12)
[2020-03-11 06:54] LABS: Calcium 7.4 MG/DL (8.5-10.1); Osmolality,Calculated 290.3 MOS/KG (273-304)
[2020-03-11] MEDS: DOCUSATE SODIUM 100 MG CAPSULE PO SCH ×2 (09:30→21:26)
[2020-03-11] MEDS: FINASTERIDE 5 MG TABLET PO SCH (09:30)
[2020-03-11] MEDS: FOLIC ACID 1 MG TABLET PO SCH (09:30)
[2020-03-11] MEDS: MAGNESIUM OXIDE 400 MG TABLET PO SCH ×2 (09:30→21:26)
[2020-03-11] MEDS: PANTOPRAZOLE 40 MG TABLET PO SCH (09:30)
[2020-03-11] MEDS: POTASSIUM CHLORIDE 8 MEQ CAPSULE PO SCH ×2 (09:30→21:26)
[2020-03-11] MEDS: carvediloL 25 MG TABLET PO SCH ×2 (09:30→21:26)
[2020-03-11] MEDS: WARFARIN 7.5 MG TABLET PO SCH (17:49)
[2020-03-11] MEDS: DEXTROMETHORPHAN ER 6 MG/ML 90 ML/BOTTLE PO PRN ×2 (17:51→21:23)
[2020-03-11] MEDS: SERTRALINE 50 MG TABLET PO SCH (21:26)
[2020-03-12] MEDS: INSULIN REGULAR 100 UNIT/ML SUBCUT SCH ×4 (01:23→17:56)
[2020-03-12] MEDS: PIPERACILLIN/TAZOBACTAM 3,375 MG in SODIUM CHLORIDE 0.9% 100 ML IV SCH ×3 (02:46→18:19)
[2020-03-12 08:10] LABS: Albumin 2.4 G/DL (3.4-5.0); Bilirubin,Direct 0.95 MG/DL (0.0-0.20); Bilirubin,Indirect 0.4 MG/DL (0.0-1.0); Bilirubin,Total 1.3 MG/DL (0.2-1.0); Total Protein 6.3 G/DL (6.4-8.3)
[2020-03-12 09:01] LABS: INR 4.4; PT Patient Result 43.5 SECS (9.8-11.9)
[2020-03-12] MEDS: DOCUSATE SODIUM 100 MG CAPSULE PO SCH ×2 (09:30→20:54)
[2020-03-12] MEDS: PANTOPRAZOLE 40 MG TABLET PO SCH (09:30)
[2020-03-12] MEDS: carvediloL 25 MG TABLET PO SCH ×2 (09:30→20:53)
[2020-03-12] MEDS: MAGNESIUM OXIDE 400 MG TABLET PO SCH ×2 (09:30→20:52)
[2020-03-12] MEDS: POTASSIUM CHLORIDE 8 MEQ CAPSULE PO SCH ×2 (09:30→20:52)
[2020-03-12] MEDS: FINASTERIDE 5 MG TABLET PO SCH (09:30)
[2020-03-12] MEDS: FOLIC ACID 1 MG TABLET PO SCH (09:30)
[2020-03-12 10:00] LABS: Hepatitis B Core IgM Quant 0.08 Index; Hepatitis B Surface Ag Quant < 0.10 Index; Hepatitis B Surface Ag Result Negative (Negative); Hepatitis C Virus Ab Quant < 0.02 Index; Hepatitis C Virus Ab Result Negative (Negative)
[2020-03-12 10:29] LABS: Bilirubin,Direct 0.9 MG/DL (0.0-0.20); Bilirubin,Indirect 0.4 MG/DL (0.0-1.0); Bilirubin,Total 1.3 MG/DL (0.2-1.0)
[2020-03-12] MEDS: WARFARIN 5 MG TABLET PO SCH (17:56)
[2020-03-12] MEDS: DEXTROMETHORPHAN ER 6 MG/ML 90 ML/BOTTLE PO PRN (18:04)
[2020-03-12] MEDS: SERTRALINE 50 MG TABLET PO SCH (20:54)
[2020-03-13] MEDS: INSULIN REGULAR 100 UNIT/ML SUBCUT SCH ×4 (01:10→19:26)
[2020-03-13] MEDS: PIPERACILLIN/TAZOBACTAM 3,375 MG in SODIUM CHLORIDE 0.9% 100 ML IV SCH ×3 (02:10→21:42)
[2020-03-13 08:56] LABS: Albumin 2.3 G/DL (3.4-5.0); Bilirubin,Direct 0.73 MG/DL (0.0-0.20); Bilirubin,Indirect 0.7 MG/DL (0.0-1.0); Bilirubin,Total 1.4 MG/DL (0.2-1.0)
[2020-03-13 08:59] LABS: INR 5.1
[2020-03-13] MEDS: POTASSIUM CHLORIDE 8 MEQ CAPSULE PO SCH ×2 (10:08→21:42)
[2020-03-13] MEDS: MAGNESIUM OXIDE 400 MG TABLET PO SCH ×2 (10:08→21:42)
[2020-03-13] MEDS: PANTOPRAZOLE 40 MG TABLET PO SCH (10:09)
[2020-03-13] MEDS: FINASTERIDE 5 MG TABLET PO SCH (10:09)
[2020-03-13] MEDS: DOCUSATE SODIUM 100 MG CAPSULE PO SCH ×2 (10:09→21:42)
[2020-03-13] MEDS: FOLIC ACID 1 MG TABLET PO SCH (10:09)
[2020-03-13] MEDS: carvediloL 25 MG TABLET PO SCH ×2 (10:09→21:42)
[2020-03-13] MEDS: SERTRALINE 50 MG TABLET PO SCH (21:42)
[2020-03-14] MEDS: INSULIN REGULAR 100 UNIT/ML SUBCUT SCH ×4 (00:20→19:08)
[2020-03-14] MEDS: PIPERACILLIN/TAZOBACTAM 3,375 MG in SODIUM CHLORIDE 0.9% 100 ML IV SCH ×3 (03:01→20:37)
[2020-03-14 06:06] LABS: Basophils % 0.3 % (0.0-0.8); Eosinophils # 0.2 10*3/uL (0.0-0.87); Eosinophils % 2.1 % (0.00-10.9); Hemoglobin 12.8 GM/DL (14.0-18.0); Lymphocytes # 1.1 10*3/uL (1.4-4.0); Lymphocytes % 11.4 % (21.2-54.2); Mean Corpuscular Volume 93.7 FL (87-102); Mean Platelet Volume 10.5 FL (9.6-12.0); Monocytes % 9.8 % (1.7-12.7); NRBC # 0.02 10*3/uL; Neutrophils % 75.4 % (38.7-73.9); Platelet Count 226 T/CUMM (130-400); Red Blood Count 4.27 MC/CUMM (3.8-5.5); Red Cell Distribution Width 15.7 % (9.3-17.3); White Blood Count 9.6 T/CUMM (4-12)
[2020-03-14 06:35] LABS: Albumin 2.2 G/DL (3.4-5.0); Bilirubin,Total 1.1 MG/DL (0.2-1.0); Calcium 8.2 MG/DL (8.5-10.1); Osmolality,Calculated 286.1 MOS/KG (273-304); Total Protein 5.9 G/DL (6.4-8.3)
[2020-03-14] MEDS: POTASSIUM CHLORIDE 8 MEQ CAPSULE PO SCH ×2 (08:56→20:34)
[2020-03-14] MEDS: carvediloL 25 MG TABLET PO SCH ×2 (08:56→20:35)
[2020-03-14] MEDS: FOLIC ACID 1 MG TABLET PO SCH (08:56)
[2020-03-14] MEDS: MAGNESIUM OXIDE 400 MG TABLET PO SCH ×2 (08:56→20:34)
[2020-03-14] MEDS: FINASTERIDE 5 MG TABLET PO SCH (08:56)
[2020-03-14] MEDS: PANTOPRAZOLE 40 MG TABLET PO SCH (08:57)
[2020-03-14] MEDS: DOCUSATE SODIUM 100 MG CAPSULE PO SCH ×2 (08:59→20:37)
[2020-03-14] MEDS ORDERED: lisinopriL 10 MG TABLET PO STA (12:42)
[2020-03-14] MEDS: lisinopriL 5 MG TABLET PO SCH (14:32)
[2020-03-14] MEDS: SERTRALINE 50 MG TABLET PO SCH (20:34)
[2020-03-15] MEDS: INSULIN REGULAR 100 UNIT/ML SUBCUT SCH ×4 (00:33→18:03)
[2020-03-15] MEDS: PIPERACILLIN/TAZOBACTAM 3,375 MG in SODIUM CHLORIDE 0.9% 100 ML IV SCH ×3 (05:13→20:32)
[2020-03-15 06:50] LABS: Basophils % 0.4 % (0.0-0.8); Eosinophils # 0.3 10*3/uL (0.0-0.87); Eosinophils % 3.2 % (0.00-10.9); Hemoglobin 13.6 GM/DL (14.0-18.0); Immature Granulocytes % 2.2 %; Immature Granulocytes Absolute 0.22 #; Lymphocytes # 1.1 10*3/uL (1.4-4.0); Lymphocytes % 11.4 % (21.2-54.2); Mean Corpuscular HGB Conc 32.4 GM/DL (32-36); Mean Corpuscular Volume 92.9 FL (87-102); Mean Platelet Volume 10.4 FL (9.6-12.0); Monocytes % 11.5 % (1.7-12.7); Neutrophils % 71.3 % (38.7-73.9); Platelet Count 259 T/CUMM (130-400); Red Blood Count 4.52 MC/CUMM (3.8-5.5); Red Cell Distribution Width 15.7 % (9.3-17.3); White Blood Count 9.8 T/CUMM (4-12)
[2020-03-15 06:58] LABS: INR 2.5; PT Patient Result 25.3 SECS (9.8-11.9)
[2020-03-15 07:24] LABS: Albumin 2.2 G/DL (3.4-5.0); Bilirubin,Total 1.3 MG/DL (0.2-1.0); Calcium 8.4 MG/DL (8.5-10.1); Osmolality,Calculated 285.1 MOS/KG (273-304); Total Protein 5.8 G/DL (6.4-8.3)
[2020-03-15] MEDS: FOLIC ACID 1 MG TABLET PO SCH (08:33)
[2020-03-15] MEDS: MAGNESIUM OXIDE 400 MG TABLET PO SCH ×2 (08:33→20:32)
[2020-03-15] MEDS: POTASSIUM CHLORIDE 8 MEQ CAPSULE PO SCH ×2 (08:33→20:32)
[2020-03-15] MEDS: PANTOPRAZOLE 40 MG TABLET PO SCH (08:33)
[2020-03-15] MEDS: carvediloL 25 MG TABLET PO SCH ×2 (08:33→20:32)
[2020-03-15] MEDS: lisinopriL 5 MG TABLET PO SCH (08:33)
[2020-03-15] MEDS: DOCUSATE SODIUM 100 MG CAPSULE PO SCH ×2 (08:38→20:32)
[2020-03-15] MEDS: FINASTERIDE 5 MG TABLET PO SCH (09:15)
[2020-03-15] MEDS ORDERED: cloNIDine 0.1 MG TABLET PO PRN (10:16)
[2020-03-15] MEDS ORDERED: lisinopriL 5 MG TABLET PO ONE (10:19)
[2020-03-15] MEDS ORDERED: cloNIDine 0.1 MG TABLET PO ONE (15:33)
[2020-03-15] MEDS: cloNIDine 0.1 MG TABLET PO SCH (20:32)
[2020-03-15] MEDS: SERTRALINE 50 MG TABLET PO SCH (20:32)
[2020-03-16] MEDS: INSULIN REGULAR 100 UNIT/ML SUBCUT SCH ×3 (02:02→11:25)
[2020-03-16] MEDS: PIPERACILLIN/TAZOBACTAM 3,375 MG in SODIUM CHLORIDE 0.9% 100 ML IV SCH ×2 (03:59→11:24)
[2020-03-16 06:44] LABS: INR 2.3
[2020-03-16 06:45] LABS: PT Patient Result 23.4 SECS (9.8-11.9)
[2020-03-16 06:53] LABS: Albumin 2.3 G/DL (3.4-5.0); Bilirubin,Total 1.3 MG/DL (0.2-1.0); Calcium 8.2 MG/DL (8.5-10.1); Osmolality,Calculated 282.3 MOS/KG (273-304); Total Protein 5.5 G/DL (6.4-8.3)
[2020-03-16] MEDS ORDERED: lisinopriL 10 MG TABLET PO SCH (09:00)
[2020-03-16] MEDS: PANTOPRAZOLE 40 MG TABLET PO SCH (09:40)
[2020-03-16] MEDS: MAGNESIUM OXIDE 400 MG TABLET PO SCH (09:40)
[2020-03-16] MEDS: FOLIC ACID 1 MG TABLET PO SCH (09:40)
[2020-03-16] MEDS: cloNIDine 0.1 MG TABLET PO SCH (09:40)
[2020-03-16] MEDS: POTASSIUM CHLORIDE 8 MEQ CAPSULE PO SCH (09:40)
[2020-03-16] MEDS: carvediloL 25 MG TABLET PO SCH (09:40)
[2020-03-16] MEDS: DOCUSATE SODIUM 100 MG CAPSULE PO SCH (09:43)
[2020-03-16] MEDS: lisinopriL 5 MG TABLET PO SCH (09:46)
[2020-03-16] MEDS: FINASTERIDE 5 MG TABLET PO SCH (09:46)
[2020-03-16 11:33] VITALS: BP 134/87
== END 2020-03-16 13:07 | disposition swing bed (61) | DRG 871 ==
LOC: EDUNIT# → EDBD → N.ED 17:07 → N.EDINP 22:08 → N.TELES 23:39
PROVIDERS: ADMIT Family Medicine; ATTEND Family Medicine

== ENCOUNTER 2020-03-28 21:05 | Observation (INO) ==
[2020-03-28 21:57] LABS: Basophils % 0.3 % (0.0-0.8); Eosinophils # 0.2 10*3/uL (0.0-0.87); Eosinophils % 2.5 % (0.00-10.9); Hemoglobin 11.3 GM/DL (14.0-18.0); Immature Granulocytes % 0.3 %; Immature Granulocytes Absolute 0.03 #; Lymphocytes # 1.5 10*3/uL (1.4-4.0); Lymphocytes % 16.4 % (21.2-54.2); Mean Corpuscular HGB Conc 30.5 GM/DL (32-36); Mean Corpuscular Volume 98.4 FL (87-102); Mean Platelet Volume 10.5 FL (9.6-12.0); Monocytes % 13.4 % (1.7-12.7); Neutrophils % 67.1 % (38.7-73.9); Platelet Count 266 T/CUMM (130-400); Red Blood Count 3.76 MC/CUMM (3.8-5.5); White Blood Count 8.9 T/CUMM (4-12)
[2020-03-28 22:13] LABS: Albumin 2.6 G/DL (3.4-5.0); Bilirubin,Total 0.7 MG/DL (0.2-1.0); Calcium 7.8 MG/DL (8.5-10.1); Potassium 5.3 MMOL/L (3.5-5.1); Total Protein 5.8 G/DL (6.4-8.3)
[2020-03-28] MEDS ORDERED: SODIUM CHLORIDE 0.9% 1,000 ML IV STA (22:58)
[2020-03-29] MEDS ORDERED: ACETAMINOPHEN 325 MG TABLET PO PRN (01:50)
[2020-03-29] MEDS ORDERED: ONDANSETRON 4 MG/2 ML VIAL IV PRN (01:50)
[2020-03-29] MEDS: SODIUM CHLORIDE 0.45% 1,000 ML IV SCH ×3 (03:45→21:04)
[2020-03-29] MEDS: PANTOPRAZOLE 40 MG TABLET PO SCH (08:27)
[2020-03-29 13:35] LABS: Calcium 8.4 MG/DL (8.5-10.1); Osmolality,Calculated 277.7 MOS/KG (273-304); Potassium 4.6 MMOL/L (3.5-5.1)
[2020-03-29] MEDS ORDERED: ALBUTEROL 2.5 MG/3 ML NEB RESP TX PRN (14:16)
[2020-03-29 15:46] LABS: INR 3.2
[2020-03-29 15:50] LABS: PT Patient Result 31.9 SECS (9.8-11.9)
[2020-03-29 15:56] LABS: Bilirubin,Urine Negative (Negative); Blood, Urine Negative (Negative); Glucose,Urine (UA) Negative (Negative); Ketones,Urine Negative (Negative); Nitrite,Urine Negative (Negative); Protein,Urine Negative; RBC,Urine <1 /HPF (0-4); Squamous Epithelial Cell,Urine Occasional /HPF (0-10); Urine Appearance CLEAR (Clear); Urine Color Yellow (Yellow); Urine Specific Gravity 1.011 (1.001-1.035); Urine Urobilinogen < 2.0 EU/DL (0.2-1.0); WBC,Urine <1 /HPF (0-6)
[2020-03-29] MEDS: INSULIN REGULAR 100 UNIT/ML SUBCUT SCH ×2 (16:51→21:04)
[2020-03-29] MEDS ORDERED: WARFARIN 5 MG TABLET PO SCH (18:00)
[2020-03-29] MEDS: POTASSIUM CHLORIDE 8 MEQ CAPSULE PO SCH (21:04)
[2020-03-29] MEDS: carvediloL 25 MG TABLET PO SCH (21:04)
[2020-03-30] MEDS: SODIUM CHLORIDE 0.45% 1,000 ML IV SCH ×2 (06:22→11:14)
[2020-03-30 06:36] LABS: Basophils % 0.4 % (0.0-0.8); Eosinophils # 0.2 10*3/uL (0.0-0.87); Eosinophils % 3.1 % (0.00-10.9); Hematocrit 39.2 VOL% (42.0-52.0); Hemoglobin 12.6 GM/DL (14.0-18.0); Immature Granulocytes % 0.3 %; Immature Granulocytes Absolute 0.02 #; Lymphocytes # 1.2 10*3/uL (1.4-4.0); Lymphocytes % 15.2 % (21.2-54.2); Mean Corpuscular HGB Conc 32.1 GM/DL (32-36); Mean Corpuscular Volume 93.6 FL (87-102); Mean Platelet Volume 9.9 FL (9.6-12.0); Monocytes % 13.8 % (1.7-12.7); Neutrophils % 67.2 % (38.7-73.9); Platelet Count 241 T/CUMM (130-400); Red Blood Count 4.19 MC/CUMM (3.8-5.5); Red Cell Distribution Width 15.7 % (9.3-17.3); White Blood Count 7.8 T/CUMM (4-12)
[2020-03-30 06:49] LABS: INR 2.3; PT Patient Result 23.3 SECS (9.8-11.9)
[2020-03-30 07:01] LABS: Calcium 8.2 MG/DL (8.5-10.1); Osmolality,Calculated 276.7 MOS/KG (273-304); Potassium 4.3 MMOL/L (3.5-5.1)
[2020-03-30] MEDS: INSULIN REGULAR 100 UNIT/ML SUBCUT SCH ×2 (08:08→12:14)
[2020-03-30] MEDS ORDERED: FOLIC ACID 1 MG TABLET PO SCH (09:00)
[2020-03-30] MEDS ORDERED: FINASTERIDE 5 MG TABLET PO SCH (09:00)
[2020-03-30] MEDS: PANTOPRAZOLE 40 MG TABLET PO SCH (09:09)
[2020-03-30] MEDS: carvediloL 25 MG TABLET PO SCH (09:09)
[2020-03-30] MEDS: POTASSIUM CHLORIDE 8 MEQ CAPSULE PO SCH (09:09)
[2020-03-30 13:09] VITALS: BP 140/69
[2020-03-30] MEDS ORDERED: WARFARIN 7.5 MG TABLET PO SCH (18:00)
== END 2020-03-30 13:56 | disposition home or self-care (01) ==
LOC: EDUNIT# → EDBD → N.EDINP 21:05 → N.ED 21:05 → N.EDINP 03-29 03:00 → N.TELEN 03-29 03:24
PROVIDERS: ADMIT Family Medicine; ATTEND Family Medicine

== ENCOUNTER 2020-04-23 13:49 | Inpatient (IN) ==
[2020-04-23 14:20] LABS: Basophils % 0.2 % (0.0-0.8); Eosinophils # 0.1 10*3/uL (0.0-0.87); Eosinophils % 0.4 % (0.00-10.9); Hematocrit 42.5 VOL% (42.0-52.0); Hemoglobin 13.4 GM/DL (14.0-18.0); Immature Granulocytes % 0.6 %; Immature Granulocytes Absolute 0.08 #; Lymphocytes # 0.4 10*3/uL (1.4-4.0); Lymphocytes % 2.7 % (21.2-54.2); Mean Corpuscular HGB Conc 31.5 GM/DL (32-36); Mean Corpuscular Volume 93.2 FL (87-102); Mean Platelet Volume 9.8 FL (9.6-12.0); Neutrophils % 90.1 % (38.7-73.9); Platelet Count 261 T/CUMM (130-400); Red Blood Count 4.56 MC/CUMM (3.8-5.5); Red Cell Distribution Width 15.3 % (9.3-17.3); White Blood Count 13.6 T/CUMM (4-12)
[2020-04-23 15:02] LABS: Albumin 2.5 G/DL (3.4-5.0); Bilirubin,Total 3.7 MG/DL (0.2-1.0); Calcium 8.7 MG/DL (8.5-10.1); Osmolality,Calculated 280.7 MOS/KG (273-304); Potassium 4.7 MMOL/L (3.5-5.1); Total Protein 6.3 G/DL (6.4-8.3)
[2020-04-23] MEDS ORDERED: SODIUM CHLORIDE 0.9% 1,000 ML IV STA (15:15)
[2020-04-23 15:56] LABS: Band Neutrophils 2 % (0-10); Lymphocytes 5 % (20-55); Segmented Neutrophils 89 % (50-85); Total Cells Counted 100
[2020-04-23 15:57] LABS: Hypochromasia Slight; Macrocytosis Slight; Platelet Estimate Increased
[2020-04-23] MEDS ORDERED: cefTRIAXone 1,000 MG in SODIUM CHLORIDE 0.9% 100 ML IV STA (16:29)
[2020-04-23] MEDS ORDERED: ACETAMINOPHEN 325 MG TABLET PO PRN (16:39)
[2020-04-23] MEDS ORDERED: ONDANSETRON 4 MG/2 ML VIAL IV PRN (16:39)
[2020-04-23] MEDS: SODIUM CHLORIDE 0.9% 1,000 ML IV SCH (17:00)
[2020-04-23 19:19] LABS: Bilirubin,Urine Negative (Negative); Blood, Urine Negative (Negative); Glucose,Urine (UA) Negative (Negative); Hyaline Casts,Urine 8 /LPF (0-3); Ketones,Urine Negative (Negative); Mucus,Urine Occasional /LPF (Occasional); Nitrite,Urine Negative (Negative); Protein,Urine Negative; RBC,Urine <1 /HPF (0-4); Urine Appearance CLEAR (Clear); Urine Color Amber (Yellow); Urine Specific Gravity 1.017 (1.001-1.035); WBC,Urine <1 /HPF (0-6)
[2020-04-23 20:17] LABS: INR 4.4
[2020-04-23 20:18] LABS: PT Patient Result 43.3 SECS (9.8-11.9); Partial Thromboplastin Time 56.6 SECS (23.9-33.8)
[2020-04-23] MEDS ORDERED: ALBUTEROL 2.5 MG/3 ML NEB RESP TX PRN (20:19)
[2020-04-23] MEDS: DOCUSATE SODIUM 100 MG CAPSULE PO SCH ×2 (20:36→22:21)
[2020-04-23] MEDS ORDERED: ENOXAPARIN 40 MG/0.4 ML SYRINGE SUBCUT SCH (21:00)
[2020-04-23] MEDS: carvediloL 25 MG TABLET PO SCH (22:21)
[2020-04-23] MEDS: POTASSIUM CHLORIDE 8 MEQ CAPSULE PO SCH (22:22)
[2020-04-23] MEDS: SERTRALINE 50 MG TABLET PO SCH (22:22)
[2020-04-23] MEDS: MAGNESIUM OXIDE 400 MG TABLET PO SCH (22:22)
[2020-04-23] MEDS: cloNIDine 0.1 MG TABLET PO SCH (22:22)
[2020-04-24] MEDS: SODIUM CHLORIDE 0.9% 1,000 ML IV SCH ×3 (05:52→23:45)
[2020-04-24 05:57] LABS: Basophils % 0.1 % (0.0-0.8); Hematocrit 39.7 VOL% (42.0-52.0); Hemoglobin 12.6 GM/DL (14.0-18.0); Immature Granulocytes % 0.7 %; Lymphocytes # 0.9 10*3/uL (1.4-4.0); Lymphocytes % 6.2 % (21.2-54.2); Mean Corpuscular HGB Conc 31.7 GM/DL (32-36); Mean Corpuscular Volume 94.7 FL (87-102); Mean Platelet Volume 10.3 FL (9.6-12.0); Monocytes % 7.3 % (1.7-12.7); Neutrophils % 85.7 % (38.7-73.9); Platelet Count 263 T/CUMM (130-400); Red Blood Count 4.19 MC/CUMM (3.8-5.5); Red Cell Distribution Width 15.3 % (9.3-17.3); White Blood Count 14.4 T/CUMM (4-12)
[2020-04-24 06:19] LABS: Albumin 2.2 G/DL (3.4-5.0); Bilirubin,Total 2.7 MG/DL (0.2-1.0); Calcium 8.4 MG/DL (8.5-10.1); Osmolality,Calculated 283.4 MOS/KG (273-304); Potassium 4.4 MMOL/L (3.5-5.1); Total Protein 5.9 G/DL (6.4-8.3)
[2020-04-24 07:37] LABS: INR 4.5
[2020-04-24 07:39] LABS: PT Patient Result 44.5 SECS (9.8-11.9)
[2020-04-24] MEDS: POTASSIUM CHLORIDE 8 MEQ CAPSULE PO SCH ×2 (09:43→20:51)
[2020-04-24] MEDS: FUROSEMIDE 40 MG TABLET PO SCH (09:44)
[2020-04-24] MEDS: FOLIC ACID 1 MG TABLET PO SCH (09:44)
[2020-04-24] MEDS: lisinopriL 5 MG TABLET PO SCH (09:44)
[2020-04-24] MEDS: cloNIDine 0.1 MG TABLET PO SCH ×3 (09:44→20:50)
[2020-04-24] MEDS: MAGNESIUM OXIDE 400 MG TABLET PO SCH ×2 (09:44→20:50)
[2020-04-24] MEDS: FINASTERIDE 5 MG TABLET PO SCH (09:45)
[2020-04-24] MEDS: carvediloL 25 MG TABLET PO SCH ×2 (09:45→18:14)
[2020-04-24] MEDS: PANTOPRAZOLE 40 MG VIAL IV SCH (09:46)
[2020-04-24] MEDS: DOCUSATE SODIUM 100 MG CAPSULE PO SCH ×2 (09:46→20:50)
[2020-04-24] MEDS: cefTRIAXone 1,000 MG in SYRINGE 1 EACH IV SCH (18:14)
[2020-04-24] MEDS: SERTRALINE 50 MG TABLET PO SCH (20:51)
[2020-04-25 07:56] LABS: PT Patient Result 51.1 SECS (9.8-11.9)
[2020-04-25 08:00] LABS: INR 5.2
[2020-04-25] MEDS: PANTOPRAZOLE 40 MG VIAL IV SCH (08:01)
[2020-04-25] MEDS: cloNIDine 0.1 MG TABLET PO SCH ×3 (08:01→21:13)
[2020-04-25] MEDS: MAGNESIUM OXIDE 400 MG TABLET PO SCH ×2 (08:01→21:14)
[2020-04-25] MEDS: POTASSIUM CHLORIDE 8 MEQ CAPSULE PO SCH ×2 (08:01→21:14)
[2020-04-25] MEDS: lisinopriL 5 MG TABLET PO SCH (08:02)
[2020-04-25] MEDS: carvediloL 25 MG TABLET PO SCH ×2 (08:02→16:25)
[2020-04-25] MEDS: FOLIC ACID 1 MG TABLET PO SCH (08:02)
[2020-04-25] MEDS: FINASTERIDE 5 MG TABLET PO SCH (08:02)
[2020-04-25] MEDS: FUROSEMIDE 40 MG TABLET PO SCH (08:02)
[2020-04-25] MEDS: DOCUSATE SODIUM 100 MG CAPSULE PO SCH (08:04)
[2020-04-25] MEDS: SODIUM CHLORIDE 0.9% 1,000 ML IV SCH ×2 (08:12→19:30)
[2020-04-25] MEDS ORDERED: PHYTONADIONE 5 MG/5 ML ORAL.SYR PO ONE (11:13)
[2020-04-25] MEDS ORDERED: PHYTONADIONE 10 MG/1 ML AMP SUBCUT ONE (12:51)
[2020-04-25] MEDS: cefTRIAXone 1,000 MG in SYRINGE 1 EACH IV SCH (18:02)
[2020-04-25] MEDS: SERTRALINE 50 MG TABLET PO SCH (21:14)
[2020-04-26] MEDS: SODIUM CHLORIDE 0.9% 1,000 ML IV SCH ×2 (04:26→15:32)
[2020-04-26 06:42] LABS: Basophils % 0.3 % (0.0-0.8); Eosinophils # 0.1 10*3/uL (0.0-0.87); Eosinophils % 1.6 % (0.00-10.9); Hematocrit 43.1 VOL% (42.0-52.0); Hemoglobin 13.4 GM/DL (14.0-18.0); Immature Granulocytes % 0.5 %; Immature Granulocytes Absolute 0.04 #; Lymphocytes # 0.9 10*3/uL (1.4-4.0); Lymphocytes % 11.5 % (21.2-54.2); Mean Corpuscular HGB Conc 31.1 GM/DL (32-36); Mean Corpuscular Volume 95.6 FL (87-102); Mean Platelet Volume 10.3 FL (9.6-12.0); Monocytes % 11.8 % (1.7-12.7); Neutrophils % 74.3 % (38.7-73.9); Platelet Count 232 T/CUMM (130-400); Red Blood Count 4.51 MC/CUMM (3.8-5.5); White Blood Count 7.9 T/CUMM (4-12)
[2020-04-26 06:50] LABS: Albumin 2.3 G/DL (3.4-5.0); Bilirubin,Total 2.1 MG/DL (0.2-1.0); Calcium 8.4 MG/DL (8.5-10.1); Osmolality,Calculated 277.7 MOS/KG (273-304); Potassium 3.8 MMOL/L (3.5-5.1); Risk Ratio 4.5; VLDL CHOLESTEROL 20.2 MG/DL
[2020-04-26] MEDS: DOCUSATE SODIUM 100 MG CAPSULE PO SCH ×3 (07:48→22:30)
[2020-04-26] MEDS: POTASSIUM CHLORIDE 8 MEQ CAPSULE PO SCH ×2 (08:45→22:19)
[2020-04-26] MEDS: cloNIDine 0.1 MG TABLET PO SCH ×3 (08:45→22:19)
[2020-04-26] MEDS: lisinopriL 5 MG TABLET PO SCH (08:45)
[2020-04-26] MEDS: MAGNESIUM OXIDE 400 MG TABLET PO SCH ×2 (08:45→22:20)
[2020-04-26] MEDS: FOLIC ACID 1 MG TABLET PO SCH (08:46)
[2020-04-26] MEDS: FINASTERIDE 5 MG TABLET PO SCH (08:46)
[2020-04-26] MEDS: carvediloL 25 MG TABLET PO SCH ×2 (08:46→16:48)
[2020-04-26] MEDS: PANTOPRAZOLE 40 MG VIAL IV SCH (08:46)
[2020-04-26] MEDS: FUROSEMIDE 40 MG TABLET PO SCH (09:15)
[2020-04-26 10:57] LABS: INR 1.3; PT Patient Result 13.5 SECS (9.8-11.9)
[2020-04-26] MEDS: cefTRIAXone 1,000 MG in SYRINGE 1 EACH IV SCH (18:30)
[2020-04-26] MEDS: SERTRALINE 50 MG TABLET PO SCH (22:19)
[2020-04-27] MEDS: SODIUM CHLORIDE 0.9% 1,000 ML IV SCH ×2 (02:40→15:21)
[2020-04-27 06:25] LABS: Basophils % 0.4 % (0.0-0.8); Eosinophils # 0.1 10*3/uL (0.0-0.87); Eosinophils % 1.3 % (0.00-10.9); Hematocrit 38.1 VOL% (42.0-52.0); Hemoglobin 12.5 GM/DL (14.0-18.0); Immature Granulocytes % 0.5 %; Immature Granulocytes Absolute 0.04 #; Lymphocytes % 12.9 % (21.2-54.2); Mean Corpuscular HGB Conc 32.8 GM/DL (32-36); Mean Corpuscular Volume 91.1 FL (87-102); Mean Platelet Volume 10.1 FL (9.6-12.0); Monocytes % 12.3 % (1.7-12.7); Neutrophils % 72.6 % (38.7-73.9); Platelet Count 248 T/CUMM (130-400); Red Blood Count 4.18 MC/CUMM (3.8-5.5); White Blood Count 7.8 T/CUMM (4-12)
[2020-04-27] MEDS ORDERED: INDOMETHACIN SUPP 50 MG SUPP RECTAL ONE ×3 (06:54→10:00)
[2020-04-27 07:03] LABS: Albumin 2.2 G/DL (3.4-5.0); Bilirubin,Total 1.3 MG/DL (0.2-1.0); Osmolality,Calculated 285.1 MOS/KG (273-304); Potassium 3.9 MMOL/L (3.5-5.1); Total Protein 5.9 G/DL (6.4-8.3)
[2020-04-27] MEDS ORDERED: fentaNYL 100 MCG/2 ML VIAL ONE (13:20)
[2020-04-27] MEDS ORDERED: ROCURONIUM 50 MG/5 ML VIAL IV ONE (13:20)
[2020-04-27] MEDS ORDERED: propofoL 200 MG/20 ML VIAL IV ONE (13:20)
[2020-04-27] MEDS ORDERED: LIDOCAINE 2% 5 ML VIAL ONE (13:20)
[2020-04-27] MEDS ORDERED: SUCCINYLCHOLINE 200 MG/10 ML VIAL ONE (13:20)
[2020-04-27] MEDS ORDERED: ETOMIDATE 20 MG/10 ML VIAL IV ONE (13:20)
[2020-04-27] MEDS ORDERED: ONDANSETRON 4 MG/2 ML VIAL ONE (13:21)
[2020-04-27] MEDS ORDERED: PHENYLEPHRINE 1 MG/10 ML SYRINGE IV ONE ×2 (14:31→14:44)
[2020-04-27] MEDS ORDERED: SEVOFLURANE 1 UNIT/15 MINUTE INH ONE (14:32)
[2020-04-27] MEDS: carvediloL 25 MG TABLET PO SCH ×2 (15:19→18:00)
[2020-04-27] MEDS: POTASSIUM CHLORIDE 8 MEQ CAPSULE PO SCH ×2 (15:20→21:17)
[2020-04-27] MEDS: DOCUSATE SODIUM 100 MG CAPSULE PO SCH ×2 (15:20→21:17)
[2020-04-27] MEDS: MAGNESIUM OXIDE 400 MG TABLET PO SCH ×2 (15:20→21:17)
[2020-04-27] MEDS: cloNIDine 0.1 MG TABLET PO SCH ×3 (15:20→21:17)
[2020-04-27] MEDS: FOLIC ACID 1 MG TABLET PO SCH (15:35)
[2020-04-27] MEDS: lisinopriL 5 MG TABLET PO SCH (15:35)
[2020-04-27] MEDS: FUROSEMIDE 40 MG TABLET PO SCH (15:35)
[2020-04-27] MEDS: FINASTERIDE 5 MG TABLET PO SCH (15:36)
[2020-04-27] MEDS: PANTOPRAZOLE 40 MG VIAL IV SCH (15:37)
[2020-04-27] MEDS: cefTRIAXone 1,000 MG in SYRINGE 1 EACH IV SCH (18:01)
[2020-04-27] MEDS: SERTRALINE 50 MG TABLET PO SCH (21:17)
[2020-04-28] MEDS: SODIUM CHLORIDE 0.9% 1,000 ML IV SCH ×2 (03:05→14:04)
[2020-04-28 06:57] LABS: Basophils % 0.2 % (0.0-0.8); Eosinophils # 0.1 10*3/uL (0.0-0.87); Eosinophils % 1.6 % (0.00-10.9); Hematocrit 38.8 VOL% (42.0-52.0); Hemoglobin 12.2 GM/DL (14.0-18.0); Immature Granulocytes % 0.7 %; Immature Granulocytes Absolute 0.06 #; Lymphocytes # 1.2 10*3/uL (1.4-4.0); Lymphocytes % 13.5 % (21.2-54.2); Mean Corpuscular HGB Conc 31.4 GM/DL (32-36); Mean Corpuscular Volume 94.9 FL (87-102); Mean Platelet Volume 10.2 FL (9.6-12.0); Monocytes % 10.2 % (1.7-12.7); Neutrophils % 73.8 % (38.7-73.9); Platelet Count 255 T/CUMM (130-400); Red Blood Count 4.09 MC/CUMM (3.8-5.5); White Blood Count 8.7 T/CUMM (4-12)
[2020-04-28 07:19] LABS: Albumin 2.2 G/DL (3.4-5.0); Bilirubin,Total 1.8 MG/DL (0.2-1.0); Calcium 8.2 MG/DL (8.5-10.1); Osmolality,Calculated 284.1 MOS/KG (273-304); Total Protein 5.7 G/DL (6.4-8.3)
[2020-04-28] MEDS ORDERED: INDOCYANINE GREEN 25 MG VIAL IV ONE (08:00)
[2020-04-28] MEDS ORDERED: cefOXitin 2,000 MG in SYRINGE 1 EACH IV ONE (08:00)
[2020-04-28] MEDS ORDERED: MORPHINE 4 MG/1 ML VIAL IV PRN ×2 (10:33)
[2020-04-28] MEDS: FOLIC ACID 1 MG TABLET PO SCH (10:43)
[2020-04-28] MEDS: POTASSIUM CHLORIDE 8 MEQ CAPSULE PO SCH ×2 (10:44→20:52)
[2020-04-28] MEDS: FUROSEMIDE 40 MG TABLET PO SCH (10:44)
[2020-04-28] MEDS: DOCUSATE SODIUM 100 MG CAPSULE PO SCH ×2 (10:44→20:52)
[2020-04-28] MEDS: lisinopriL 5 MG TABLET PO SCH (10:44)
[2020-04-28] MEDS: cloNIDine 0.1 MG TABLET PO SCH ×3 (10:44→20:53)
[2020-04-28] MEDS: FINASTERIDE 5 MG TABLET PO SCH (10:44)
[2020-04-28] MEDS: carvediloL 25 MG TABLET PO SCH ×2 (10:44→17:24)
[2020-04-28] MEDS: MAGNESIUM OXIDE 400 MG TABLET PO SCH ×2 (10:45→20:53)
[2020-04-28] MEDS: PANTOPRAZOLE 40 MG VIAL IV SCH (10:51)
[2020-04-28] MEDS: cefTRIAXone 1,000 MG in SYRINGE 1 EACH IV SCH (17:25)
[2020-04-28] MEDS: SERTRALINE 50 MG TABLET PO SCH (20:53)
[2020-04-29] MEDS: SODIUM CHLORIDE 0.9% 1,000 ML IV SCH ×3 (01:20→15:12)
[2020-04-29] MEDS ORDERED: FUROSEMIDE 40 MG/4 ML VIAL IV ONE (07:24)
[2020-04-29] MEDS ORDERED: fentaNYL 100 MCG/2 ML VIAL ONE (08:16)
[2020-04-29] MEDS ORDERED: TISSUE ADHESIVE 1 EACH APPLICATOR TOP ONE (09:07)
[2020-04-29] MEDS ORDERED: BUPIVACAINE MPF 0.25% 30 ML VIAL ONE (09:14)
[2020-04-29] MEDS ORDERED: LIDOCAINE 1%/EPI INJ 20 ML VIAL ONE (09:14)
[2020-04-29] MEDS ORDERED: PHENYLEPHRINE 1 MG/10 ML SYRINGE IV ONE (10:15)
[2020-04-29] MEDS ORDERED: ACETAMINOPHEN 1,000 MG/100 ML VIAL IV ONE (10:15)
[2020-04-29] MEDS ORDERED: propofoL 200 MG/20 ML VIAL IV ONE (10:15)
[2020-04-29] MEDS ORDERED: SEVOFLURANE 1 UNIT/15 MINUTE INH ONE (10:15)
[2020-04-29] MEDS ORDERED: ETOMIDATE 40 MG/20 ML VIAL IV ONE (10:15)
[2020-04-29] MEDS ORDERED: ONDANSETRON 4 MG/2 ML VIAL ONE (10:15)
[2020-04-29] MEDS ORDERED: ROCURONIUM 50 MG/5 ML VIAL IV ONE (10:15)
[2020-04-29] MEDS ORDERED: LIDOCAINE 2% 5 ML VIAL ONE (10:15)
[2020-04-29] MEDS ORDERED: GLYCOPYRROLATE 0.4 MG/2 ML VIAL ONE (10:48)
[2020-04-29] MEDS ORDERED: NEOSTIGMINE 10 MG/10 ML VIAL ONE (10:48)
[2020-04-29] MEDS ORDERED: SUGAMMADEX 200 MG/2 ML VIAL IV ONE (10:57)
[2020-04-29] MEDS ORDERED: ALBUTEROL/IPRATROPIUM 3 ML NEB RESP TX ONE (10:57)
[2020-04-29] MEDS: PANTOPRAZOLE 40 MG VIAL IV SCH (12:09)
[2020-04-29] MEDS: FINASTERIDE 5 MG TABLET PO SCH (12:10)
[2020-04-29] MEDS: FOLIC ACID 1 MG TABLET PO SCH (12:10)
[2020-04-29] MEDS: lisinopriL 5 MG TABLET PO SCH (12:10)
[2020-04-29] MEDS: MAGNESIUM OXIDE 400 MG TABLET PO SCH ×2 (12:10→22:25)
[2020-04-29] MEDS: DOCUSATE SODIUM 100 MG CAPSULE PO SCH ×2 (12:10→23:16)
[2020-04-29] MEDS: POTASSIUM CHLORIDE 8 MEQ CAPSULE PO SCH ×2 (12:10→22:26)
[2020-04-29] MEDS: cloNIDine 0.1 MG TABLET PO SCH ×3 (12:10→22:26)
[2020-04-29] MEDS: FUROSEMIDE 40 MG TABLET PO SCH (12:10)
[2020-04-29] MEDS: carvediloL 25 MG TABLET PO SCH ×2 (12:11→18:08)
[2020-04-29 12:14] LABS: Basophils % 0.4 % (0.0-0.8); Eosinophils # 0.2 10*3/uL (0.0-0.87); Eosinophils % 1.9 % (0.00-10.9); Hematocrit 40.1 VOL% (42.0-52.0); Hemoglobin 12.6 GM/DL (14.0-18.0); Lymphocytes # 0.9 10*3/uL (1.4-4.0); Lymphocytes % 8.1 % (21.2-54.2); Mean Corpuscular HGB Conc 31.4 GM/DL (32-36); Mean Corpuscular Volume 95.7 FL (87-102); Mean Platelet Volume 9.4 FL (9.6-12.0); Monocytes % 8.9 % (1.7-12.7); Neutrophils % 79.7 % (38.7-73.9); Platelet Count 258 T/CUMM (130-400); Red Blood Count 4.19 MC/CUMM (3.8-5.5); Red Cell Distribution Width 15.6 % (9.3-17.3); White Blood Count 10.5 T/CUMM (4-12)
[2020-04-29 13:00] LABS: Albumin 2.3 G/DL (3.4-5.0); Bilirubin,Total 1.9 MG/DL (0.2-1.0); Potassium 3.9 MMOL/L (3.5-5.1); Total Protein 5.6 G/DL (6.4-8.3)
[2020-04-29] MEDS: cefTRIAXone 1,000 MG in SYRINGE 1 EACH IV SCH (18:08)
[2020-04-29] MEDS: SERTRALINE 50 MG TABLET PO SCH (22:26)
[2020-04-30] MEDS: SODIUM CHLORIDE 0.9% 1,000 ML IV SCH ×2 (05:04→11:28)
[2020-04-30 07:02] LABS: Basophils # 0.1 10*3/uL (0.0-0.2); Basophils % 0.3 % (0.0-0.8); Eosinophils # 0.2 10*3/uL (0.0-0.87); Hemoglobin 13.8 GM/DL (14.0-18.0); Immature Granulocytes % 0.6 %; Immature Granulocytes Absolute 0.11 #; Lymphocytes # 0.9 10*3/uL (1.4-4.0); Lymphocytes % 4.9 % (21.2-54.2); Mean Corpuscular HGB Conc 32.1 GM/DL (32-36); Mean Corpuscular Volume 93.9 FL (87-102); Mean Platelet Volume 10.7 FL (9.6-12.0); Monocytes % 10.3 % (1.7-12.7); Neutrophils % 82.9 % (38.7-73.9); Platelet Count 228 T/CUMM (130-400); Red Blood Count 4.58 MC/CUMM (3.8-5.5); Red Cell Distribution Width 15.9 % (9.3-17.3); White Blood Count 19.1 T/CUMM (4-12)
[2020-04-30 07:16] LABS: Albumin 2.3 G/DL (3.4-5.0); Bilirubin,Total 1.1 MG/DL (0.2-1.0); Calcium 8.3 MG/DL (8.5-10.1); Osmolality,Calculated 280.3 MOS/KG (273-304); Potassium 3.9 MMOL/L (3.5-5.1); Total Protein 6.1 G/DL (6.4-8.9)
[2020-04-30 07:27] LABS: Band Neutrophils 1 % (0-10); Eosinophils 1 % (0-10); Hypochromasia Slight; Lymphocytes 8 % (20-55); Microcytosis 1+; Platelet Estimate Normal; Segmented Neutrophils 80 % (50-85); Total Cells Counted 100
[2020-04-30] MEDS: FINASTERIDE 5 MG TABLET PO SCH (09:23)
[2020-04-30] MEDS: cloNIDine 0.1 MG TABLET PO SCH ×3 (09:23→21:57)
[2020-04-30] MEDS: MAGNESIUM OXIDE 400 MG TABLET PO SCH ×2 (09:23→21:58)
[2020-04-30] MEDS: FUROSEMIDE 40 MG TABLET PO SCH (09:23)
[2020-04-30] MEDS: POTASSIUM CHLORIDE 8 MEQ CAPSULE PO SCH ×2 (09:23→21:57)
[2020-04-30] MEDS: DOCUSATE SODIUM 100 MG CAPSULE PO SCH ×2 (09:23→22:33)
[2020-04-30] MEDS: carvediloL 25 MG TABLET PO SCH ×2 (09:23→16:08)
[2020-04-30] MEDS: FOLIC ACID 1 MG TABLET PO SCH (09:24)
[2020-04-30] MEDS: PANTOPRAZOLE 40 MG VIAL IV SCH (09:24)
[2020-04-30] MEDS: lisinopriL 5 MG TABLET PO SCH (09:24)
[2020-04-30 12:33] LABS: Bilirubin,Urine Negative (Negative); Blood, Urine Negative (Negative); Glucose,Urine (UA) Negative (Negative); Hyaline Casts,Urine 3 /LPF (0-3); Ketones,Urine 5 mg/dL (Negative); Mucus,Urine Occasional /LPF (Occasional); Nitrite,Urine Negative (Negative); Protein,Urine Negative; RBC,Urine 2 /HPF (0-4); Squamous Epithelial Cell,Urine Occasional /HPF (0-10); Urine Appearance CLEAR (Clear); Urine Color Yellow (Yellow); Urine Specific Gravity 1.011 (1.001-1.035); Urine Urobilinogen < 2.0 EU/DL (0.2-1.0)
[2020-04-30] MEDS ORDERED: [UNRECOGNIZED DRUG - OTHER] INH PRN (13:31)
[2020-04-30] MEDS ORDERED: ACETAMINOPHEN 325 MG TABLET PO PRN (13:31)
[2020-04-30] MEDS ORDERED: ALBUTEROL SULFATE INH PRN (13:31)
[2020-04-30] MEDS: DOCOSANOL 10% CREAM 2 GM TUBE TOP SCH ×3 (16:09→21:57)
[2020-04-30] MEDS: WARFARIN 5 MG TABLET PO SCH (18:26)
[2020-04-30] MEDS: cefTRIAXone 1,000 MG in SYRINGE 1 EACH IV SCH (18:26)
[2020-04-30] MEDS: SERTRALINE 50 MG TABLET PO SCH (21:58)
[2020-05-01] MEDS: SODIUM CHLORIDE 0.9% 1,000 ML IV SCH ×2 (02:55→21:46)
[2020-05-01] MEDS: POTASSIUM CHLORIDE 8 MEQ CAPSULE PO SCH ×2 (08:30→21:43)
[2020-05-01] MEDS: FUROSEMIDE 40 MG TABLET PO SCH (08:30)
[2020-05-01] MEDS: lisinopriL 5 MG TABLET PO SCH (08:30)
[2020-05-01] MEDS: PANTOPRAZOLE 40 MG VIAL IV SCH (08:30)
[2020-05-01] MEDS: carvediloL 25 MG TABLET PO SCH ×2 (08:30→17:00)
[2020-05-01] MEDS: DOCUSATE SODIUM 100 MG CAPSULE PO SCH ×2 (08:30→21:44)
[2020-05-01] MEDS: cloNIDine 0.1 MG TABLET PO SCH ×3 (08:30→21:44)
[2020-05-01] MEDS: FOLIC ACID 1 MG TABLET PO SCH (08:30)
[2020-05-01] MEDS: MAGNESIUM OXIDE 400 MG TABLET PO SCH ×2 (08:30→21:43)
[2020-05-01] MEDS: FINASTERIDE 5 MG TABLET PO SCH (08:31)
[2020-05-01] MEDS: DOCOSANOL 10% CREAM 2 GM TUBE TOP SCH ×4 (12:11→22:00)
[2020-05-01] MEDS: cefTRIAXone 1,000 MG in SYRINGE 1 EACH IV SCH (17:01)
[2020-05-01] MEDS ORDERED: WARFARIN 7.5 MG TABLET PO SCH (18:00)
[2020-05-01] MEDS: SERTRALINE 50 MG TABLET PO SCH (21:43)
[2020-05-02] MEDS: DOCOSANOL 10% CREAM 2 GM TUBE TOP SCH ×5 (06:25→21:09)
[2020-05-02] MEDS: SODIUM CHLORIDE 0.9% 1,000 ML IV SCH ×3 (07:02→10:11)
[2020-05-02] MEDS: PANTOPRAZOLE 40 MG VIAL IV SCH (08:18)
[2020-05-02] MEDS: FINASTERIDE 5 MG TABLET PO SCH (08:18)
[2020-05-02] MEDS: POTASSIUM CHLORIDE 8 MEQ CAPSULE PO SCH ×2 (08:18→21:08)
[2020-05-02] MEDS: FOLIC ACID 1 MG TABLET PO SCH (08:18)
[2020-05-02] MEDS: DOCUSATE SODIUM 100 MG CAPSULE PO SCH ×2 (08:19→21:08)
[2020-05-02] MEDS: carvediloL 25 MG TABLET PO SCH ×2 (08:19→16:04)
[2020-05-02] MEDS: MAGNESIUM OXIDE 400 MG TABLET PO SCH ×2 (08:20→21:08)
[2020-05-02] MEDS: lisinopriL 5 MG TABLET PO SCH (08:20)
[2020-05-02] MEDS: cloNIDine 0.1 MG TABLET PO SCH ×3 (08:20→21:09)
[2020-05-02] MEDS: FUROSEMIDE 40 MG TABLET PO SCH (08:22)
[2020-05-02] MEDS: WARFARIN 5 MG TABLET PO SCH (17:35)
[2020-05-02] MEDS: SERTRALINE 50 MG TABLET PO SCH (21:08)
[2020-05-03 05:06] LABS: Basophils % 0.2 % (0.0-0.8); Eosinophils # 0.5 10*3/uL (0.0-0.87); Eosinophils % 4.1 % (0.00-10.9); Hematocrit 39.4 VOL% (42.0-52.0); Hemoglobin 12.2 GM/DL (14.0-18.0); Immature Granulocytes % 0.6 %; Immature Granulocytes Absolute 0.07 #; Lymphocytes # 0.9 10*3/uL (1.4-4.0); Lymphocytes % 8.1 % (21.2-54.2); Mean Corpuscular Volume 98.3 FL (87-102); Mean Platelet Volume 9.8 FL (9.6-12.0); Monocytes % 11.2 % (1.7-12.7); Neutrophils % 75.8 % (38.7-73.9); Platelet Count 252 T/CUMM (130-400); Red Blood Count 4.01 MC/CUMM (3.8-5.5); Red Cell Distribution Width 16.1 % (9.3-17.3); White Blood Count 11.5 T/CUMM (4-12)
[2020-05-03 05:15] LABS: INR 1.2; PT Patient Result 13.2 SECS (9.8-11.9)
[2020-05-03 05:27] LABS: Calcium 8.4 MG/DL (8.5-10.1)
[2020-05-03] MEDS: SODIUM CHLORIDE 0.9% 1,000 ML IV SCH (06:00)
[2020-05-03] MEDS: DOCOSANOL 10% CREAM 2 GM TUBE TOP SCH ×5 (06:04→21:58)
[2020-05-03] MEDS: FOLIC ACID 1 MG TABLET PO SCH (08:34)
[2020-05-03] MEDS: MAGNESIUM OXIDE 400 MG TABLET PO SCH ×2 (08:34→20:47)
[2020-05-03] MEDS: POTASSIUM CHLORIDE 8 MEQ CAPSULE PO SCH ×2 (08:34→20:47)
[2020-05-03] MEDS: FUROSEMIDE 40 MG TABLET PO SCH (08:34)
[2020-05-03] MEDS: FINASTERIDE 5 MG TABLET PO SCH (08:34)
[2020-05-03] MEDS: cloNIDine 0.1 MG TABLET PO SCH ×3 (08:34→20:48)
[2020-05-03] MEDS: DOCUSATE SODIUM 100 MG CAPSULE PO SCH ×2 (08:34→20:48)
[2020-05-03] MEDS: lisinopriL 5 MG TABLET PO SCH (08:35)
[2020-05-03] MEDS: carvediloL 25 MG TABLET PO SCH ×2 (08:35→17:20)
[2020-05-03] MEDS: PANTOPRAZOLE 40 MG VIAL IV SCH (08:40)
[2020-05-03] MEDS: POLYETHYLENE GLYCOL POWDER 17 GM PACK PO SCH (11:37)
[2020-05-03] MEDS: WARFARIN 5 MG TABLET PO SCH (17:29)
[2020-05-03] MEDS: SERTRALINE 50 MG TABLET PO SCH (20:49)
[2020-05-04] MEDS: DOCOSANOL 10% CREAM 2 GM TUBE TOP SCH ×2 (05:46→09:02)
[2020-05-04 06:10] LABS: INR 1.5; PT Patient Result 15.7 SECS (9.8-11.9)
[2020-05-04 06:33] LABS: Albumin 2.1 G/DL (3.4-5.0); Bilirubin,Total 0.9 MG/DL (0.2-1.0); Potassium 4.5 MMOL/L (3.5-5.1); Total Protein 5.9 G/DL (5.0-7.5)
[2020-05-04 07:51] VITALS: BP 131/75
[2020-05-04] MEDS: lisinopriL 5 MG TABLET PO SCH (09:01)
[2020-05-04] MEDS: POTASSIUM CHLORIDE 8 MEQ CAPSULE PO SCH (09:01)
[2020-05-04] MEDS: MAGNESIUM OXIDE 400 MG TABLET PO SCH (09:02)
[2020-05-04] MEDS: FOLIC ACID 1 MG TABLET PO SCH (09:02)
[2020-05-04] MEDS: FINASTERIDE 5 MG TABLET PO SCH (09:02)
[2020-05-04] MEDS: FUROSEMIDE 40 MG TABLET PO SCH (09:02)
[2020-05-04] MEDS: carvediloL 25 MG TABLET PO SCH (09:02)
[2020-05-04] MEDS: DOCUSATE SODIUM 100 MG CAPSULE PO SCH (09:02)
[2020-05-04] MEDS: cloNIDine 0.1 MG TABLET PO SCH (09:02)
[2020-05-04] MEDS: POLYETHYLENE GLYCOL POWDER 17 GM PACK PO SCH (09:03)
[2020-05-04] MEDS: PANTOPRAZOLE 40 MG VIAL IV SCH (09:03)
== END 2020-05-04 13:17 | disposition swing bed (61) | DRG 417 ==
LOC: N.ED 13:49 → N.EDINP 16:39 → N.TELEN 22:54
PROVIDERS: ADMIT Family Medicine; ATTEND Family Medicine
PROC: ERCPWSP (ICD-10-PCS; 2020-04-27 11:35)

== ENCOUNTER 2021-04-04 09:24 | Inpatient (IN) ==
[2021-04-04 14:30] LABS: Basophils % 0.2 % (0.0-0.8); Eosinophils # 0.1 10*3/uL (0.0-0.87); Hematocrit 35.3 VOL% (42.0-52.0); Hemoglobin 11.1 GM/DL (14.0-18.0); Immature Granulocytes % 0.4 %; Immature Granulocytes Absolute 0.05 #; Lymphocytes # 1.2 10*3/uL (1.4-4.0); Lymphocytes % 9.9 % (21.2-54.2); Mean Corpuscular HGB Conc 31.4 GM/DL (32-36); Mean Corpuscular Volume 90.1 FL (87-102); Mean Platelet Volume 8.9 FL (9.6-12.0); Monocytes % 12.7 % (1.7-12.7); Neutrophils % 75.8 % (38.7-73.9); Platelet Count 425 T/CUMM (130-400); Red Blood Count 3.92 MC/CUMM (3.8-5.5); Red Cell Distribution Width 15.1 % (9.3-17.3); White Blood Count 11.8 T/CUMM (4-12)
[2021-04-04 14:47] LABS: Albumin 2.3 G/DL (3.4-5.0); Bilirubin,Total 0.5 MG/DL (0.20-1.00); Calcium 8.9 MG/DL (8.5-10.1); Potassium 4.7 MMOL/L (3.5-5.1); Total Protein 7.3 G/DL (6.4-8.2)
[2021-04-04 15:14] LABS: INR 2.7
[2021-04-04] MEDS ORDERED: VANCOMYCIN INJ 1,000 MG in SODIUM CHLORIDE 0.9% 250 ML IV STA (15:18)
[2021-04-04 15:19] LABS: PT Patient Result 28.4 SECS (10.5-12.0)
[2021-04-04] MEDS ORDERED: ACETAMINOPHEN 325 MG TABLET PO PRN (15:20)
[2021-04-04] MEDS ORDERED: ONDANSETRON 4 MG/2 ML VIAL IV PRN (15:20)
[2021-04-04] MEDS ORDERED: GLUCAGON 1 MG VIAL IM PRN (15:20)
[2021-04-04] MEDS ORDERED: DEXTROSE 10% 250 ML BAG IV PRN ×2 (15:25→18:50)
[2021-04-04] MEDS ORDERED: ALBUTEROL 2.5 MG/3 ML NEB RESP TX PRN (18:46)
[2021-04-04] MEDS ORDERED: VANCOMYCIN INJ 1,000 MG in SODIUM CHLORIDE 0.9% 250 ML IV ONE (20:00)
[2021-04-04] MEDS: SERTRALINE 50 MG TABLET PO SCH (22:39)
[2021-04-04] MEDS: INSULIN LISPRO 100 UNIT/ML SUBCUT SCH (22:40)
[2021-04-04] MEDS: cloNIDine 0.1 MG TABLET PO SCH (22:41)
[2021-04-04] MEDS: DOCUSATE SODIUM 100 MG CAPSULE PO SCH (22:41)
[2021-04-04] MEDS: carvediloL 25 MG TABLET PO SCH (22:41)
[2021-04-04] MEDS: POTASSIUM CHLORIDE 10 MEQ TABLET PO SCH (22:56)
[2021-04-04] MEDS: MAGNESIUM OXIDE 400 MG TABLET PO SCH (22:56)
[2021-04-04] MEDS: cefTRIAXone 2,000 MG in SODIUM CHLORIDE 0.9% 100 ML IV SCH (23:30)
[2021-04-05 05:41] LABS: Basophils % 0.3 % (0.0-0.8); Eosinophils # 0.2 10*3/uL (0.0-0.87); Eosinophils % 2.1 % (0.00-10.9); Immature Granulocytes % 0.6 %; Immature Granulocytes Absolute 0.06 #; Lymphocytes # 1.2 10*3/uL (1.4-4.0); Lymphocytes % 11.5 % (21.2-54.2); Mean Corpuscular HGB Conc 31.4 GM/DL (32-36); Mean Platelet Volume 9.1 FL (9.6-12.0); Monocytes % 10.7 % (1.7-12.7); Neutrophils % 74.8 % (38.7-73.9); Platelet Count 443 T/CUMM (130-400); Red Blood Count 3.89 MC/CUMM (3.8-5.5); White Blood Count 10.5 T/CUMM (4-12)
[2021-04-05] MEDS ORDERED: PANTOPRAZOLE 40 MG TABLET PO SCH (09:00)
[2021-04-05] MEDS: cloNIDine 0.1 MG TABLET PO SCH ×3 (09:28→21:18)
[2021-04-05] MEDS: POTASSIUM CHLORIDE 10 MEQ TABLET PO SCH ×2 (09:28→21:17)
[2021-04-05] MEDS: PANTOPRAZOLE 40 MG TABLET PO SCH (09:29)
[2021-04-05] MEDS: DOCUSATE SODIUM 100 MG CAPSULE PO SCH ×2 (09:29→21:18)
[2021-04-05] MEDS: carvediloL 25 MG TABLET PO SCH ×2 (09:29→21:18)
[2021-04-05] MEDS: FOLIC ACID 1 MG TABLET PO SCH (09:29)
[2021-04-05] MEDS: FINASTERIDE 5 MG TABLET PO SCH (09:29)
[2021-04-05] MEDS: lisinopriL 5 MG TABLET PO SCH (09:29)
[2021-04-05] MEDS: FUROSEMIDE 40 MG TABLET PO SCH (09:29)
[2021-04-05] MEDS: MAGNESIUM OXIDE 400 MG TABLET PO SCH ×2 (09:29→21:17)
[2021-04-05] MEDS: INSULIN LISPRO 100 UNIT/ML SUBCUT SCH ×4 (09:58→21:19)
[2021-04-05] MEDS: metFORMIN 500 MG TABLET PO SCH (17:08)
[2021-04-05] MEDS: SERTRALINE 50 MG TABLET PO SCH (21:18)
[2021-04-05] MEDS: cefTRIAXone 2,000 MG in SODIUM CHLORIDE 0.9% 100 ML IV SCH (21:19)
[2021-04-05] MEDS: VANCOMYCIN INJ 1,500 MG in SODIUM CHLORIDE 0.9% 500 ML IV SCH (22:39)
[2021-04-06 05:13] LABS: Basophils % 0.2 % (0.0-0.8); Eosinophils # 0.3 10*3/uL (0.0-0.87); Eosinophils % 3.3 % (0.00-10.9); Hematocrit 30.9 VOL% (42.0-52.0); Hemoglobin 9.6 GM/DL (14.0-18.0); Immature Granulocytes % 0.5 %; Immature Granulocytes Absolute 0.05 #; Lymphocytes # 1.1 10*3/uL (1.4-4.0); Lymphocytes % 11.5 % (21.2-54.2); Mean Corpuscular HGB Conc 31.1 GM/DL (32-36); Mean Corpuscular Volume 90.1 FL (87-102); Monocytes % 11.9 % (1.7-12.7); Neutrophils % 72.6 % (38.7-73.9); Platelet Count 385 T/CUMM (130-400); Red Blood Count 3.43 MC/CUMM (3.8-5.5); Red Cell Distribution Width 15.1 % (9.3-17.3); White Blood Count 9.2 T/CUMM (4-12)
[2021-04-06 05:18] LABS: INR 2.3
[2021-04-06 05:28] LABS: PT Patient Result 24.5 SECS (10.5-12.0)
[2021-04-06 05:30] LABS: Calcium 8.1 MG/DL (8.5-10.1); Osmolality,Calculated 286.7 MOS/KG (273-304); Potassium 4.7 MMOL/L (3.5-5.1)
[2021-04-06] MEDS: cloNIDine 0.1 MG TABLET PO SCH ×3 (09:01→21:22)
[2021-04-06] MEDS: INSULIN LISPRO 100 UNIT/ML SUBCUT SCH ×4 (09:01→21:24)
[2021-04-06] MEDS: DOCUSATE SODIUM 100 MG CAPSULE PO SCH ×2 (09:01→21:23)
[2021-04-06] MEDS: lisinopriL 5 MG TABLET PO SCH (09:02)
[2021-04-06] MEDS: FOLIC ACID 1 MG TABLET PO SCH (09:02)
[2021-04-06] MEDS: POTASSIUM CHLORIDE 10 MEQ TABLET PO SCH ×2 (09:02→21:22)
[2021-04-06] MEDS: MAGNESIUM OXIDE 400 MG TABLET PO SCH ×2 (09:02→21:22)
[2021-04-06] MEDS: carvediloL 25 MG TABLET PO SCH ×2 (09:02→21:23)
[2021-04-06] MEDS: FUROSEMIDE 40 MG TABLET PO SCH (09:02)
[2021-04-06] MEDS: PANTOPRAZOLE 40 MG TABLET PO SCH (09:03)
[2021-04-06] MEDS: FINASTERIDE 5 MG TABLET PO SCH (09:03)
[2021-04-06] MEDS ORDERED: LIDOCAINE 2% 5 ML VIAL ONE (13:36)
[2021-04-06] MEDS ORDERED: propofoL 200 MG/20 ML VIAL IV ONE (13:36)
[2021-04-06] MEDS ORDERED: fentaNYL 100 MCG/2 ML VIAL ONE (13:36)
[2021-04-06] MEDS ORDERED: SUCCINYLCHOLINE 200 MG/10 ML VIAL ONE (13:43)
[2021-04-06] MEDS ORDERED: ETOMIDATE 40 MG/20 ML VIAL IV ONE (14:26)
[2021-04-06] MEDS ORDERED: LACTATED RINGERS 1,000 ML IV SCH (14:30)
[2021-04-06] MEDS ORDERED: ONDANSETRON 4 MG/2 ML VIAL ONE (15:06)
[2021-04-06] MEDS: metFORMIN 500 MG TABLET PO SCH (17:51)
[2021-04-06] MEDS: SERTRALINE 50 MG TABLET PO SCH (21:23)
[2021-04-06] MEDS: cefTRIAXone 2,000 MG in SODIUM CHLORIDE 0.9% 100 ML IV SCH (21:24)
[2021-04-06] MEDS: VANCOMYCIN INJ 1,500 MG in SODIUM CHLORIDE 0.9% 500 ML IV SCH (21:24)
[2021-04-06] MEDS ORDERED: MORPHINE 2 MG/1 ML SYRINGE IV PRN (22:41)
[2021-04-07 05:37] LABS: PT Patient Result 21.3 SECS (10.5-12.0)
[2021-04-07 05:41] LABS: Basophils % 0.3 % (0.0-0.8); Eosinophils # 0.3 10*3/uL (0.0-0.87); Eosinophils % 3.2 % (0.00-10.9); Hematocrit 32.6 VOL% (42.0-52.0); Hemoglobin 10.1 GM/DL (14.0-18.0); Immature Granulocytes % 0.5 %; Immature Granulocytes Absolute 0.04 #; Lymphocytes # 0.9 10*3/uL (1.4-4.0); Lymphocytes % 9.9 % (21.2-54.2); Mean Corpuscular Volume 91.8 FL (87-102); Monocytes % 11.7 % (1.7-12.7); Neutrophils % 74.4 % (38.7-73.9); Platelet Count 392 T/CUMM (130-400); Red Blood Count 3.55 MC/CUMM (3.8-5.5); Red Cell Distribution Width 15.1 % (9.3-17.3); White Blood Count 8.8 T/CUMM (4-12)
[2021-04-07 05:52] LABS: Calcium 8.5 MG/DL (8.5-10.1); Osmolality,Calculated 283.8 MOS/KG (273-304); Potassium 5.1 MMOL/L (3.5-5.1)
[2021-04-07] MEDS: POTASSIUM CHLORIDE 10 MEQ TABLET PO SCH ×2 (10:19→20:36)
[2021-04-07] MEDS: FINASTERIDE 5 MG TABLET PO SCH (10:19)
[2021-04-07] MEDS: MAGNESIUM OXIDE 400 MG TABLET PO SCH ×2 (10:20→20:36)
[2021-04-07] MEDS: cloNIDine 0.1 MG TABLET PO SCH ×3 (10:20→20:36)
[2021-04-07] MEDS: PANTOPRAZOLE 40 MG TABLET PO SCH (10:21)
[2021-04-07] MEDS: carvediloL 25 MG TABLET PO SCH ×2 (10:21→20:36)
[2021-04-07] MEDS: FOLIC ACID 1 MG TABLET PO SCH (10:21)
[2021-04-07] MEDS: DOCUSATE SODIUM 100 MG CAPSULE PO SCH ×2 (10:21→20:36)
[2021-04-07] MEDS: INSULIN LISPRO 100 UNIT/ML SUBCUT SCH ×4 (10:21→20:38)
[2021-04-07] MEDS: SERTRALINE 50 MG TABLET PO SCH (20:36)
[2021-04-07] MEDS ORDERED: SULFAMETHOX/TRIMETHOPRIM 800-160 MG TABLET PO SCH (21:00)
[2021-04-08] MEDS ORDERED: WARFARIN 5 MG TABLET PO SCH (09:00)
[2021-04-08] MEDS ORDERED: LINEZOLID 600 MG TABLET PO SCH (09:00)
[2021-04-08] MEDS: cloNIDine 0.1 MG TABLET PO SCH ×3 (10:05→22:08)
[2021-04-08] MEDS: FOLIC ACID 1 MG TABLET PO SCH (10:05)
[2021-04-08] MEDS: AMOXICILLIN/CLAV 875 MG TABLET PO SCH ×2 (10:05→22:08)
[2021-04-08] MEDS: carvediloL 25 MG TABLET PO SCH ×2 (10:06→22:09)
[2021-04-08] MEDS: POTASSIUM CHLORIDE 10 MEQ TABLET PO SCH ×2 (10:07→22:08)
[2021-04-08] MEDS: FINASTERIDE 5 MG TABLET PO SCH (10:07)
[2021-04-08] MEDS: MAGNESIUM OXIDE 400 MG TABLET PO SCH ×2 (10:07→22:08)
[2021-04-08] MEDS: DOCUSATE SODIUM 100 MG CAPSULE PO SCH ×2 (10:07→22:09)
[2021-04-08] MEDS: PANTOPRAZOLE 40 MG TABLET PO SCH (10:08)
[2021-04-08] MEDS: INSULIN LISPRO 100 UNIT/ML SUBCUT SCH ×4 (11:04→22:09)
[2021-04-08] MEDS: SERTRALINE 50 MG TABLET PO SCH (22:08)
[2021-04-09 07:04] LABS: INR 1.6; PT Patient Result 17.7 SECS (10.5-12.0)
[2021-04-09] MEDS: INSULIN LISPRO 100 UNIT/ML SUBCUT SCH ×2 (07:30→12:39)
[2021-04-09] MEDS ORDERED: WARFARIN 7.5 MG TABLET PO SCH (09:00)
[2021-04-09] MEDS: DOCUSATE SODIUM 100 MG CAPSULE PO SCH (10:51)
[2021-04-09] MEDS: FINASTERIDE 5 MG TABLET PO SCH (10:51)
[2021-04-09] MEDS: POTASSIUM CHLORIDE 10 MEQ TABLET PO SCH (10:52)
[2021-04-09] MEDS: carvediloL 25 MG TABLET PO SCH (10:52)
[2021-04-09] MEDS: PANTOPRAZOLE 40 MG TABLET PO SCH (10:52)
[2021-04-09] MEDS: cloNIDine 0.1 MG TABLET PO SCH (10:52)
[2021-04-09] MEDS: MAGNESIUM OXIDE 400 MG TABLET PO SCH (10:52)
[2021-04-09] MEDS: FOLIC ACID 1 MG TABLET PO SCH (10:53)
[2021-04-09] MEDS: AMOXICILLIN/CLAV 875 MG TABLET PO SCH (10:56)
[2021-04-09 11:32] VITALS: BP 129/67
== END 2021-04-09 12:35 | disposition swing bed (61) | DRG 240 ==
LOC: N.ED 09:24 → N.EDINP 15:20 → N.5E 18:03
PROVIDERS: ADMIT Family Medicine; ATTEND Family Medicine